=== PATIENT | female | born 1975 | race Caucasian/White ===

== ENCOUNTER → 2018-04-06 17:59 | Outpatient (CLI) | payer OTHER, SELFPAY | PROVIDERS: Family Provider Physician Assistant; PCP Physician Assistant; Visit Provider Podiatrist | DX: S91.209A Unspecified open wound of unspecified toe(s) with damage to nail, initial encounter (principal) | CPT/HCPCS: 87070; 87077; 87186; 87205 ==

== ENCOUNTER 2020-07-09 16:01 | Emergency (ER) | payer OTHER, SELFPAY ==
[2020-07-09 16:02] VITALS: BP 154/111; PULSE 68; RESP 16; TEMP 35.7; O2SAT 100; BMI 29.2
[2020-07-09 16:07] VITALS: BP 154/111; PULSE 68; RESP 16; TEMP 35.7; O2SAT 100
--- NOTE | 2020-07-09 17:33 | ED.RN ---
rt ear irrigated with 30 cc saline. very large and extensive piece of hard cecum moved to from of ear. removed with curette. Dr Rushing aware
--- NOTE | 2020-07-09 17:37 | ED.DCSUM_ITS ---
History of Present Illness Chief Complaint: Sore Throat Informant: Patient Onset: Days Context: Gradual Onset Associated Symptoms: Nasal Congestion, Sinus Pressure, Diarrhea, - - right ear fullness Narrative: Is a 45-year-old female with a history of asthma presenting with concern for Covid as well as right ear congestion and pressure. Patient states on she started to have malaise, sore throat, hoarse voice and diarrhea. She notes her boyfriend as well as her son and his girlfriend have all recently tested positive for coronavirus. Patient states she did have coronavirus back in February but this feels the same. She was tested for Covid 2 days ago but does not know her results. She is not having any significant shortness of breath, wheezing or difficulty breathing. She is more concerned because of the discomfort in her right ear. She did put some Debrox in it today with no improvement. Patient has no other concerns at this time. Past Medical History - Allergies and Home Meds Allergies/Adverse Reactions: Allergies Sulfa (Sulfonamide Antibiotics) Adverse Reaction (Verified 07/09/20 16:07) Chest tightness Primary Care Physician: Fred Joseph PA [Primary Care Provider] - Past Medical History: - - Asthma, Surgical History: noncontributory Lives: Spouse/ Significant Other, With Family Smoking Status: Never smoker Review of Systems General: Reports: Malaise. Denies: Chills, Fever, Sweats Eyes: Denies: Visual changes - bilaterally, Diplopia ENT: Reports: Right ear pain, Rhinorrhea, Sore throat Cardiovascular: Denies: Chest pain, Palpitations Respiratory: Reports: Cough. Denies: Dyspnea, Sputum, Dyspnea on exertion Gastrointestinal: Reports: Diarrhea. Denies: Abdominal pain, Nausea, Vomiting, Melena, Hematochezia Genitourinary: Denies: Dysuria, Hematuria, Frequency Musculoskeletal: Reports: Myalgias. Denies: Back pain, Extremity Pain Skin: Denies: Rash, Wounds Neurological: Denies: Headache, Weakness, Numbness Physical Exam Vital Signs/Narrative: Vital Signs Temp Pulse Resp BP Pulse Ox 07/09/20 16:07 96.3 F L 68 16 154/111 H 100 07/09/20 16:02 96.3 F L 68 16 154/111 H 100 Inital Vital Signs reviewed: Yes General: Well nourished, Well developed Head: Normocephalic, Atraumatic Eyes: Perrl, EOMI Ears: Normal external canal, - - Impaction of the right ear. Normal left TM.. Negative for: Pain with Movement of Right Tragus, Pain with Movement of Left Tragus, Right Mastoid Tenderness, Left Mastoid Tenderness Nose: Normal Inspection, No Rhinorrhea Mouth/Throat: Normal Inspection, No Posterior Erythema, Airway Patent Tonsils: Negative for: Right Tonsilar Erythema, Left Tonsilar Erythema Neck: Supple, Nontender Cardiovascular: Regular rate, Regular rhythm, No murmurs Respiratory: No distress, CTA bilaterally, Chest nontender. Negative for: Whe ezing Abdomen: Soft, Nontender, Nondistended, Normal bowel sounds Back: Nontender, Normal Inspection Extremities: Nontender, No edema Skin: Normal color, No rash Neurological: Alert, Oriented x3, Cranial nerves II-XII grossly intact, Normal Strength, Normal Sensation Psychological: Normal affect Diagnostic/Tx/Re-eval - Medical Decision Making Patient is evaluated for a right ear congestion with decreased hearing as well as viral symptoms consistent with coronavirus. She has multiple sick contacts positive for coronavirus. Clinically patient is well-appearing and is breathing easily. She had a Covid test 2 days ago that is pending. I do not think a repeat swab is indicated at this time. She does appear to have a cerumen impaction on her affected ear. Is irrigated by nursing and patient has a large piece of cerumen that is dislodged. She now has visualization of the panic membrane and resolution of her ear symptoms. She feels much better. Patient is given Covid return precautions. She verbalizes agreement understand this plan. She is counseled on the importance of quarantine to event spread to other people. ED Disposition - Plan for ED Patient: Disposition: Home or Assisted Living Diagnosis: Suspected COVID-19 virus infection, Right ear impacted cerumen Instructions: ED Viral Syndrome Referrals: Fred Joseph PA [Primary Care Provider] - Additional Instructions: Please quarantine and act like you do have coronavirus until your results come back. Given your exposure and your symptoms I have a high suspicion that you do have coronavirus. Please return to the emergency room if you develop difficulty breathing or shortness of breath.
== END 2020-07-09 18:10 | disposition home or self-care (01) ==
PROVIDERS: Emergency Provider Emergency Medicine; PCP Physician Assistant
DX: Z20.828 Contact with and (suspected) exposure to other viral communicable diseases (principal); H61.21 Impacted cerumen, right ear
CPT/HCPCS: 99284

== ENCOUNTER → 2020-11-01 16:11 | Outpatient (CLI) | payer OTHER, SELFPAY ==
[2020-11-01 14:40] VITALS: BMI 32.2
[2020-11-01 17:55] LABS: Anion Gap 5 (5-15); BUN 20 mg/dL (7-18); BUN/Creat Ratio 19.6 RATIO (10-20); CRP, High Sensitivity Cardiac 2.06 mg/L; Calcium,Total 9.1 mg/dL (8.5-10.1); Chloride 106 mmol/L (98-107); Creatinine, Serum 1.02 mg/dL (0.55-1.02); EST Glomerular Filtration Rate 62 mL/min (>60); Est Glom Filt Rate - Afr Amer 74 mL/min (>60); Glucose 100 mg/dL (74-106); Potassium 4.1 mmol/L (3.5-5.1); Sodium Level 141 mmol/L (136-145); Thyroid Stim Hormone (TSH) 1.95 uIU/mL (0.358-3.74)
== END ==
PROVIDERS: PCP Physician Assistant; Referring Provider Internal Medicine Cardiovascular Disease; Visit Provider Internal Medicine Cardiovascular Disease
DX: U07.1 COVID-19 (principal); I10 Essential (primary) hypertension; R07.9 Chest pain, unspecified
CPT/HCPCS: 36415; 80048; 84443; 86141

== ENCOUNTER → 2020-11-23 13:20 | Outpatient (CLI) | payer OTHER, SELFPAY ==
[2020-11-01 14:40] VITALS: BMI 32.2
--- NOTE | 2020-11-23 13:22 | STE_ITS ---
Reason For Study: DYSPNEA/SOB, HTN Stress Results Protocol: Stress Echocardiogram Maximum Predicted HR: 173 bpm Target HR: 147 bpm % Maximum Predicted HR: 88 % DurationHeart Rate Stage (mm:ss) (bpm) BP Comment BASELINE 66 134/84SINUS ARRHYTHMIA OSVALDO PROTOCOL- STAGE 1 3:00 108 134/90NO SX OSVALDO PROTOCOL- STAGE 2 3:00 121 152/86SL SOB OSVALDO PROTOCOL- STAGE 3 2:00 153 170/96SOB, NO CP RECOVERY 75 144/92SX SUBSIDED Stress Duration: 8:00 mm:ss Maximum Stress HR: 153 bpm Baseline Echocardiogram Findings Stress Echo Wall motion Data Resting WM Intermediate WM Stress WM Interpretation Summary Exercise stress echo. 45-year-old with a history of dyspnea and hypertension. Stress protocol: Resting EKG demonstrates normal sinus rhythm with a rate of 78 bpm normal intervals are noted. Resting blood pressure is 134/84 mmHg. Patient exercised according to regular Osvaldo protocol for total duration of 8 minutes. Patient completed 2 minutes into stage III of the Osvaldo protocol. The maximum heart rate attained was 153 bpm which was 88% of max impacted heart rate the maximum workload was 10.1 metabolic equivalents. At rest there were no ST or T wave changes noted suggest ischemia at peak exercise upsloping ST changes were noted with no meet the criteria for ischemia. The test was terminated due to dyspnea. No clinical angina was noted. The resting blood pressure was 134/84 with a peak blood pressure 170/90 mmHg. Blood pressure response to exercise was normal. Stress echocardiogram. Resting and stress echocardiographic images were obtained. The resting ejection fraction was noted to be approximately 55%. The peak ejection fraction was 65% with no wall motion abnormalities noted there was thickening of all carvalho present. Conclusion: Exercise stress echocardiogram with no evidence of ischemia at a high workload. Good blood pressure response to exercise. Normal resting and stress echocardiographic images Ordering Physician: Ham Ordaz MD Referring Physician: Alan Joseph Performed By: Sulma Zavala RDCS
--- NOTE | 2020-11-23 17:02 | STRESSREP ---
Stress Test Report Exercise stress echo. 45-year-old with a history of dyspnea and hypertension. Stress protocol: Resting EKG demonstrates normal sinus rhythm with a rate of 78 bpm normal intervals are noted. Resting blood pressure is 134/84 mmHg. Patient exercised according to regular Osvaldo protocol for total duration of 8 minutes. Patient completed 2 minutes into stage III of the Osvaldo protocol. The maximum heart rate attained was 153 bpm which was 88% of max impacted heart rate the maximum workload was 10.1 metabolic equivalents. At rest there were no ST or T wave changes noted suggest ischemia at peak exercise upsloping ST changes were noted with no meet the criteria for ischemia. The test was terminated due to dyspnea. No clinical angina was noted. The resting blood pressure was 134/84 with a peak blood pressure 170/90 mmHg. Blood pressure response to exercise was normal. Stress echocardiogram. Resting and stress echocardiographic images were obtained. The resting ejection fraction was noted to be approximately 55%. The peak ejection fraction was 65% with no wall motion abnormalities noted there was thickening of all carvalho present. Conclusion: Exercise stress echocardiogram with no evidence of ischemia at a high workload. Good blood pressure response to exercise. Normal resting and stress echocardiographic images
== END ==
LOC: CVS 13:20
PROVIDERS: PCP Physician Assistant; Visit Provider Internal Medicine Cardiovascular Disease
DX: I10 Essential (primary) hypertension (principal); R06.00 Dyspnea, unspecified; R06.02 Shortness of breath
CPT/HCPCS: 93017; 93350

== ENCOUNTER 2021-06-24 18:31 | Observation (INO) | payer OTHER, SELFPAY ==
[2021-06-24 18:31] VITALS: BP 115/112; PULSE 80; RESP 16; TEMP 36; O2SAT 99; BMI 30.2
[2021-06-24 18:40] VITALS: BP 174/86; PULSE 58; RESP 15; O2SAT 99
--- NOTE | 2021-06-24 19:01 | EKG12_ITS ---
Test Reason : NUMBNESS/TINGLING Blood Pressure : / mmHG Vent. Rate : 059 BPM Atrial Rate : 059 BPM P-R Int : 132 ms QRS Dur : 082 ms QT Int : 392 ms P-R-T Axes : 052 011 029 degrees QTc Int : 388 ms Sinus bradycardia Otherwise normal ECG Confirmed by GILLIAN INGRAM, LORI ([id number]), news copy editor DWAIN MCCRACKEN ([id number]) on 06/26/2021 8:06:49 AM Referred By: FIDELIA Confirmed By:LORI FRENCH MD
--- NOTE | 2021-06-24 19:01 | CT_ITS ---
STUDY: CTA HEAD AND NECK WITH CONTRAST REASON FOR EXAM: Female, 46 years old. Headache, right facial droop RADIATION DOSAGE (If Supplied By Facility): CTDIvol = ( 27.85 ) mGy, DLP = ( 1483.94 ) mGycm TECHNIQUE: CT angiography was performed with a multi-detector CT scanner. Data acquisition was obtained from the skull base through the vertex following intravenous administration of IV 100mL Isovue-370. MIP images were reconstructed from the axial data set. Post-processing of the angiographic images was performed, with multiplanar reformation and 3D reconstruction. Individualized dose optimization techniques were used for this CT. COMPARISON: No relevant priors. FINDINGS: Normal bilateral petrous carotid arteries. Normal right cavernous carotid artery with a normal supraclinoid bifurcation. There is a mild focal stenosis at the left cavernous carotid artery with a normal supraclinoid bifurcation. Normal right A1 segments of the anterior cerebral artery. Normal left A1 segments of the anterior cerebral artery. Normal intact anterior communicating artery (ACOM). Normal bilateral A2 segments of the anterior cerebral arteries. Normal right M1 and M2 segments of the middle cerebral arteries, with a normal M1 bifurcation. Normal left M1 and M2 segments of the middle cerebral arteries, with a normal M1 bifurcation. Normal right posterior communicating artery (PCOM). Normal left posterior communicating artery (PCOM). Normal bilateral vertebral arteries. Normal basilar artery with a normal basilar bifurcation. The visualized bilateral superior cerebellar (SCA) arteries are normal. Normal bilateral P1, P2 and visualized P3 segments of the posterior cerebral arteries. There is no demonstrated aneurysm of the pokagon of [place]. There is no demonstrated abnormality of the visualized brain. AORTIC ARCH: Normal visualized aortic arch. Normal origins of the brachiocephalic, left common carotid, and left subclavian arteries. RIGHT CAROTID ARTERIES: Normal right common carotid artery (CCA). Normal right common carotid bulb. Normal origin of the right internal carotid (ICA) artery without a hemodynamically significant stenosis. Normal visualized cervical portion of the right internal carotid artery. Normal origin of the right external carotid artery (ECA). LEFT CAROTID ARTERIES: Normal left common carotid artery (CCA). Normal left common carotid bulb. Normal origin of the left internal carotid (ICA) artery without a hemodynamically significant stenosis. Normal visualized cervical portion of the left internal carotid artery. Normal origin of the left external carotid artery (ECA). VERTEBRAL ARTERIES: Normal bilateral vertebral arteries. CT/CTA Head AND Neck W/ Contrast IMPRESSION: Mild focal stenosis at the cavernous portion of the left internal carotid artery which does not appear to be hemodynamically significant. Electronically Signed: Aleks Monsivais DO at 20:36 EDT Tel [phone], Service support ,
--- NOTE | 2021-06-24 19:02 | EDS_ITS ---
HPI History of Present Illness Chief Complaint: Numb/Ting Informant: patient Onset/Context/Timing Onset: Today Timing: Intermittent Current Severity: Mild Maximum Severity: Moderate Narrative Narrative: Patient presents with recurrent neurologic symptoms. This past , June 21, patient states that she was at work when she developed weakness in her right leg, right facial droop, dizziness. 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 She was sent to [facility] in [place] for evaluation. At that time she continued to have dizziness but her other neuro symptoms resolved. She was diagnosed with a TIA. She chose to go home and follow-up. Shortly before arrival tonight patient states she developed numbness and droop on her right face again it lasted 2 minutes. This was associated with dizziness and a headache. The dizziness and headache persist. [facility] Medical History (Updated 06/24/21 @ 20:[address] Yolanda Rincon MD) Asthma Essential (primary) hypertension GERD (gastroesophageal reflux disease) History of MRSA infection Mononucleosis Seborrheic keratoses Syncope (2006) Home Medications albuterol sulfate 90 mcg/actuation aerosol inhaler 2 inh INHALATION Q6H PRN g 11/01/20 [History Last Taken Unknown] amlodipine 5 mg tablet 5 mg PO DAILY 11/01/20 [History Last Taken Unknown] lisinopril 40 mg tablet 40 mg PO DAILY #90 tab 11/01/20 [Rx Last Taken Unknown] metoprolol succinate 50 mg tablet,extended release 24 hr 50 mg PO DAILY #90 tab 11/01/20 [Rx Last Taken Unknown] Allergy/AdvReac Type Severity Reaction Status Date / Time Sulfa (Sulfonamide AdvReac Chest Verified 06/24/21 18:42 Antibiotics) tightness Family History Mother Hypertension Grandmother Myocardial infarction maternal Grandfather Myocardial infarction maternal Surgical History History of History of lumbar spinal fusion Social History Smoking Status: Never smoker alcohol intake: current alcohol intake frequency: a few times a month ROS ROS ED Constitutional Constitutional ED: Denies chills or fever(s) Eyes Eyes: Denies change in vision ENT ENT ED: Denies sore throat Cardiovascular Cardiovascular: Denies chest pain Respiratory/Chest Respiratory/Chest: Denies cough or dyspnea Gastrointestinal Gastrointestinal: Denies abdominal pain, diarrhea, nausea or vomiting Genitourinary Genitourinary ED: Denies dysuria Musculoskeletal Musculoskeletal: Denies back pain Integumentary Denies rash Neurologic Neurologic: Reports headache(s), paresthesias and weakness Psychiatric Psychiatric: Denies anxiety or depression Allergic/Immunologic Allergic/Immunologic ED: Denies urticaria EXAM Physical Exam Const Vital Signs: 06/24/21 18:31 06/24/21 18:40 Temperature 96.8 F L Temperature Source Temporal Pulse Rate 80 58 L Respiratory Rate 16 15 Blood Pressure 115/112 H 174/86 H Blood Pressure Mean 113 115 Pulse Ox 99 99 Oxygen Delivery Method Room Air Room Air Positive well nourished and well developed General Appearance ED: well developed HEENT Reports normocephalic and head/scalp atraumatic Eyes PERRL and EOMs intact bilaterally Neck supple Chest Wall inspection of chest normal and palpation of chest normal Resp normal respiratory effort and clear to auscultation bilaterally Cardio regular rate and regular rhythm GI normal to inspection, nondistended, normoactive bowel sounds Palpation: soft Back/Spine no CVA tenderness Extremity normal to inspection Neuro oriented x3 and no sensory deficits noted Neuro Narrative: NIH equals 0 at the time of my exam. Sensorium / Orientation: alert Motor Exam: strength 5/5 throughout Psych mental status grossly normal Skin no rashes or lesions noted MDM MDM MDM Narrative Medical decision making narrative: Lab work, EKG, CTA head and neck obtained. Lab Data Attestation: I reviewed the patient's lab results. Labs: Laboratory Results - last 24 hr 06/24/21 06/24/21 19:25 19:25 WBC 12.8 H RBC 4.60 Hgb 13.1 Hct 39.6 MCV 86.1 MCH 28.5 MCHC 33.1 RDW Std Deviation 44.3 H RDW Coeff of Patrice 14.2 Plt Count 278 MPV 8.5 Immature Gran % (Auto) 1.000 H Neut % (Auto) 63.5 Lymph % (Auto) 25.2 Adair % (Auto) 9.2 Eos % (Auto) 0.6 Baso % (Auto) 0.5 Absolute Neuts (auto) 8.1 H Absolute Lymphs (auto) 3.22 Nucleated RBC % 0 Sodium 140 Potassium 4.2 Chloride 107 Carbon Dioxide 28.0 Anion Gap 5 BUN 23 H Creatinine 0.97 Estim Creat Clear Calc 56.10 Est GFR (MDRD) Af Amer 79 Est GFR (MDRD) Non-Af 65 BUN/Creatinine Ratio 23.7 H Glucose 103 Calcium 9.0 Radiography Diagnostic Testing: Radiology Impression Head/Neck CTA 06/24/21 19:01 IMPRESSION: Mild focal stenosis at the cavernous portion of the left internal carotid artery which does not appear to be hemodynamically significant. Electronically Signed: Aleks Monsivais DO at 20:36 EDT Tel [phone], Service support , Treatment and Re-Evaluation Comments:: Repeat evaluation patient is resting comfortably. No worsening of symptoms while in the emergency room. No recurrence of facial droop. Blood work is unremarkable other than mild elevation of white count at 12.8. CTA reveals mild focal stenosis in the left internal carotid but does not appear to be hemodynamically significant. With patient having 2 separate episodes of symptoms now in the last 4 days I do recommend observation overnight and MRI in the morning. This will be discussed with hospitalist. Discharge Plan Triage Chief Complaint: Numb/Ting ED Provider: Yolanda Rincon Dx/Rx/DC Orders Clinical Impression: Brain TIA Prescriptions: No Action amlodipine 5 mg tablet 5 mg PO DAILY RF: 0 metoprolol succinate [Toprol XL] 50 mg tablet extended release 24 hr 50 mg PO DAILY Qty: 90 RF: 3 lisinopril 40 mg tablet 40 mg PO DAILY Qty: 90 RF: 3 albuterol sulfate 90 mcg/actuation HFA aerosol inhaler 2 inh INHALATION Q6H PRN (Reason: Wheezing) RF: 0 Primary Care Provider: Fred Joseph Referrals: Fred Joseph PA [Primary Care Provider] - Disposition Disposition: Acute Care Hospital [facility]
[2021-06-24 19:46] LABS: Absolute Lymphocyte Count 3.22 X10^3/uL (0.83-4.51); Absolute Neutrophil Count 8.1 X10^3/uL (2.0-7.7); Basophil# 0.06 X10^3/uL; Basophil% 0.5 % (0-1); Eosinophil# 0.08 X10^3/uL; Eosinophils% 0.6 % (0-5); Hematocrit 39.6 % (37-47); Hemoglobin 13.1 g/dL (12.0-15.0); Lymphocyte # 3.22 X10^3/ul (0.83-4.51); Lymphocyte % 25.2 % (19-41); Mean Corp Hgb Conc 33.1 g/dL (32-36); Mean Corpuscular Hgb 28.5 pg (27.0-32.0); Mean Corpuscular Volume 86.1 fL (81-99); Mean Platelet Vol. 8.5 fl (6.2-12.0); Monocyte# 1.17 X10^3/uL; Monocyte% 9.2 % (0-10); NRBC Flagged by Analyzer 0 % (0-5); Neutrophil % 63.5 % (47-70); Platelet Count 278 K/mm3 (150-450); RBC Distribution Width CV 14.2 % (11.6-14.6); RBC Distribution Width SD 44.3 fl (35.1-43.9); White Blood Count 12.8 K/mm3 (4.4-11.0)
[2021-06-24 19:55] LABS: Anion Gap 5 (5-15); BUN 23 mg/dL (7-18); BUN/Creat Ratio 23.7 RATIO (10-20); Chloride 107 mmol/L (98-107); Creatinine, Serum 0.97 mg/dL (0.55-1.02); EST Glomerular Filtration Rate 65 mL/min (>60); Est Glom Filt Rate - Afr Amer 79 mL/min (>60); Glucose 103 mg/dL (74-106); Potassium 4.2 mmol/L (3.5-5.1); Sodium Level 140 mmol/L (136-145)
--- NOTE | 2021-06-24 20:58 | HP.PCM.HOS_ITS ---
HPI - General General Date of Admission: 06/24/21 HPI Narrative YOBANY ANGELO, is a 46 F with a significant history of hypertension who presents to emergency department with numbness of her right face. Associated with her symptoms is weakness of her right face; and lightheadedness. Also she had blurry vision of her right eye. Her symptoms occurred on the day of presentation and resolved except that she continued to have lightheadedness at the emergency department. Her symptoms also occurred 3 days prior to presentation and resolved. 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 She went to the emergency department at [facility] and had head CT and blood work. She thought she may be having a TIA and was discharge home because of high Covid census at [facility] [place] at that time. At that time (3 days ago) she also had right leg weakness. On the day of this presentation she had same symptoms that occurred 3 days ago except that she did not have right leg weakness. [facility] Medical History Asthma Essential (primary) hypertension GERD (gastroesophageal reflux disease) History of MRSA infection Migraines Mononucleosis Seborrheic keratoses Syncope (2006) Home Medications albuterol sulfate 90 mcg/actuation aerosol inhaler 2 inh INHALATION Q6H PRN g 11/01/20 [History Last Taken Unknown] amlodipine 5 mg tablet 5 mg PO DAILY 11/01/20 [History Last Taken Unknown] lisinopril 40 mg tablet 40 mg PO DAILY #90 tab 11/01/20 [Rx Last Taken Unknown] metoprolol succinate 50 mg tablet,extended release 24 hr 50 mg PO DAILY #90 tab 11/01/20 [Rx Last Taken Unknown] Allergy/AdvReac Type Severity Reaction Status Date / Time apple Allergy Swelling Verified 06/24/21 22:54 shellfish derived AdvReac Swelling Verified 06/24/21 22:56 Sulfa (Sulfonamide AdvReac Chest Verified 06/24/21 18:42 Antibiotics) tightness Family History Mother Hypertension Grandmother Myocardial infarction maternal Grandfather Myocardial infarction maternal Surgical History History of History of lumbar spinal fusion Social History Smoking Status: Never smoker alcohol intake: current alcohol intake frequency: a few times a month ROS ROS Narrative Constitutional: Denies fever, chills, fatigue, anorexia and change in weight Eyes: Reports blurry vision of the right eye. Denies change in vision, discharge from eye(s), erythema, eye pain, or other HEENT: Denies abnormal hearing, dysphagia, ear pain, epistaxis, headache(s), hearing loss, nasal congestion, nasal discharge, post nasal drip, sinus pressure, sore throat or other Cardiovascular: Denies chest pain or palpitations. Denies dyspnea on exertion, orthopnea and paroxysmal nocturnal dyspnea Respiratory/Chest: Denies cough, excessive phlegm production, shortness of breath with exertion and wheezing Gastrointestinal: Denies abdominal pain, coffee ground emesis, constipation, diarrhea, dyspepsia, hematemesis, hematochezia, loose stools, melena, nausea, vomiting or other Genitourinary: Denies burning urination, difficulty urinating, dysuria, hematuria, nocturia, urinary frequency, urinary hesitancy, urinary incontinence, urinary urgency or other Musculoskeletal: Denies arthralgias, back pain, joint pain, joint stiffness, joint swelling, myalgias, neck pain or other Neurologic: Reports focal weakness; headaches; numbness. Denies seizure-like activity, seizures, syncope, tremor(s) or other Psychiatric: Denies anxiety, depression, homicidal ideation, suicidal ideation or other Endocrinology: Denies change in body appearance, cold intolerance, excessive sweating, heat intolerance, polydipsia, polyuria or other Hematologic/Lymphatic: Denies anemia, easy bleeding, easy bruising, lymphadenopathy or other Integumentary: Denies rashes Allergic/Immunologic: Denies rhinitis, hives, eczema, asthma or other Vital Signs Vital Signs Vital Signs: 06/24/21 18:31 06/24/21 18:40 Temperature 96.8 F L Temperature Source Temporal Pulse Rate 80 58 L Respiratory Rate 16 15 Blood Pressure 115/112 H 174/86 H Blood Pressure Mean 113 115 Pulse Ox 99 99 Oxygen Delivery Method Room Air Room Air Weight Weight: 74.843 kg Body Mass Index (BMI) 30.2 Physical Exam Narrative Physical exam: General: Well-nourished, well-developed. Head: Normocephalic, atraumatic, no tenderness Eyes: PERRLA, EOMI ENT, no trauma, moist mucous membranes, no rhinorrhea Neck: Nontender, full range of motion, no spinal tenderness, deformities, step- off CVS: Regular rate and rhythm. S1-S2 present. No murmur, gallop or rub. Respiratory : clear to auscultation bilaterally, chest wall nontender, no wheezing Abdomen: Soft, nontender, nondistended, normal bowel sounds, no masses : Deferred Back: Nontender, no CVA tenderness, no midline spinal tenderness, deformities, step-offs Extremities: Nontender full range of motion, no trauma Skin: Normal color, no trauma, abrasions Neuro: Alert, oriented, cranial nerves II through XII grossly intact. Sensation changes on the right side of the face; and right lower extremity. No dysmetria. Strength in right lower extremity 4 out of 5. Strength in all other extremities 5 out of 5. Psychiatry: Normal mood. Normal affect. Not depressed. Not anxious. Results Lab / Micro Data Result Diagrams: 06/24/21 19:25 06/24/21 19:25 Labs: Laboratory Results - last 24 hr 06/24/21 19:25: WBC 12.8 H, RBC 4.60, Hgb 13.1, Hct 39.6, MCV 86.1, MCH 28.5, MCHC 33.1, RDW Std Deviation 44.3 H, RDW Coeff of Patrice 14.2, Plt Count 278, MPV 8.5, Immature Gran % (Auto) 1.000 H, Neut % (Auto) 63.5, Lymph % (Auto) 25.2, [place] % (Auto) 9.2, Eos % (Auto) 0.6, Baso % (Auto) 0.5, Absolute Neuts (auto) 8.1 H, Absolute Lymphs (auto) 3.22, Nucleated RBC % 0 06/24/21 19:25: Sodium 140, Potassium 4.2, Chloride 107, Carbon Dioxide 28.0, Anion Gap 5, BUN 23 H, Creatinine 0.97, Estim Creat Clear Calc 56.10, Est GFR (MDRD) Af Amer 79, Est GFR (MDRD) Non-Af 65, BUN/Creatinine Ratio 23.7 H, Glucose 103, Calcium 9.0 Radiology Impression Head/Neck CTA 06/24/21 19:01 IMPRESSION: Mild focal stenosis at the cavernous portion of the left internal carotid artery which does not appear to be hemodynamically significant. Electronically Signed: Aleks Monsivais DO at 20:36 EDT Tel [phone], Service support , Assessment & Plan Assessment/Plan (1) Stroke-like symptoms: PLAN: Strokelike symptoms Defer diagnosis include TIA; evolving stroke all multiple sclerosis. Serial NINDS NIH Scale ordered Impression of head/neck CTA by radiology is as above. Upon my personal head CT image review: I agree with radiologist interpretation Lipid profile and A1c ordered. Physical therapy, and occupational therapy to work with patient. N.p.o. until bedside swallow eval. Daily aspirin. LFT other within normal. High intensity statin Permissive hypertension. Control blood pressure with labetalol for systolic blood pressure of more than 220 or diastolic blood pressure of more than 120. MRI/MRAM of head; brain; and neck. Echocardiogram ordered. Patient with stress echo on 11/23/2020 showed normal ejection fraction. Hypertension Blood pressure is not within goal Home blood pressure meds held secondary to permissive hypertension. Hydralazine prn and labetalol as needed for permissive hypertension as above. Trend blood pressure and adjust blood pressure medications. DVT Prophylaxis SCD ordered. Charges/Coding Visit Charges OBSV E&M: 80126 Initial observation care L2
[2021-06-24 21:08] VITALS: BP 156/98; PULSE 58; RESP 15; TEMP 36.8; O2SAT 99
--- NOTE | 2021-06-24 22:02 | ECHOD_ITS ---
Reason For Study: TIA/CVA Procedure This was a 2D Doppler, Color Flow transthoracic echocardiogram. Exam performed portable in patient room. Left Ventricle Normal LV size. Left ventricular systolic function is normal. The estimated ejection fraction is 60 %. Stage 1 diastolic dysfunction. No regional wall motion abnormalities noted. Right Ventricle Normal RV size. Normal systolic function. Atria The left atrium is mildly enlarged. Normal right atrium. Bubble contrast study negative for right to left interatrial shunt. Mitral Valve Normal mitral valve. Tricuspid Valve Normal tricuspid valve. Mild (1+) tricuspid valve insufficiency. Pulmonary artery systolic pressure is 26 mmHg. Aortic Valve Normal aortic valve. Trisinus/trileaflet aortic valve. Pulmonic Valve Normal pulmonic valve. Great Vessels Normal aortic root. The pulmonary artery is normal size. Normal inferior vena cava. Pericardium/Pleural No pericardial effusion. Medication Performed a rapid injection of agitated mix of 9 cc saline and 1cc air to assess for atrial septal defect. MMode/2D Measurements & Calculations LVIDd: 4.7 cm IVSd: 1.1 cm Ao root diam: 3.3 cm LVIDs: 2.4 cm LVPWd: 1.1 cm RVDd: 3.0 cm FS: 49.2 % LAV(MOD-bp): 60.6 ml LVAd ap4: 29.7 cm2 SV(MOD-sp4): 70.0 ml LAV(MOD-bp) Indexed: 32.8 ml/m2 LVLd ap4: 7.8 cm LAV(MOD-sp2): 46.5 ml EDV(MOD-sp4): 91.0 ml LAV(MOD-sp4): 70.9 ml EDV(sp4-el): 95.9 ml LVAs ap4: 12.5 cm2 LVLs ap4: 6.2 cm ESV(MOD-sp4): 21.0 ml ESV(sp4-el): 21.4 ml EF(MOD-sp4): 76.9 % EF(sp4-el): 77.7 % SV(sp4-el): 74.6 ml LA A4 area: 22.0 cm2 LA dimension(2D): 3.4 cm RA A4 area: 13.8 cm2 Doppler Measurements & Calculations MV E max angelo: 80.7 cm/sec Lat Peak E' Angelo: 8.1 cm/sec Med Peak E' Angelo: 8.6 cm/sec MV A max angelo: 85.4 cm/sec E/E' lat: 9.9 E/E' med: 9.4 MV E/A: 0.95 Ao V2 max: 163.9 cm/sec LV V1 max: 136.4 cm/sec PA V2 max: 87.4 cm/sec Ao max P.7 mmHg LV V1 max P.4 mmHg TR max angelo: 236.3 cm/sec TR max P.5 mmHg ECHO/Echo Complete Interpretation Summary Normal LV size. Left ventricular systolic function is normal. The estimated ejection fraction is 60 %. The left atrium is mildly enlarged. Stage 1 diastolic dysfunction. Pulmonary artery systolic pressure is 26 mmHg. Bubble contrast study negative for right to left interatrial shunt. Ordering Physician: Lefty Avila Referring Physician: Alan Joseph Performed By: Sulma Zavala RDCS
[2021-06-24 22:03] VITALS: BMI 33.7
--- NOTE | 2021-06-24 22:03 | PCS.PANDOC ---
PANDEMIC DOCUMENTATION INITIATED: Date: 05/07/2021 Time: 190
[2021-06-24 22:07] VITALS: BP 151/87; PULSE 59; RESP 18; TEMP 36.7; O2SAT 100
[2021-06-24] MEDS: Atorvastatin Calcium 80 MG Tablet PO (22:29)
[2021-06-24] MEDS: Acetaminophen 325 MG Tablet 650 MG PO (22:29)
[2021-06-24 22:49] VITALS: PULSE 63
[2021-06-24 22:50] LABS: AST(SGOT) 11 U/L (15-37); Alanine Aminotransfer ALT/SGPT 20 U/L (13-56); Albumin, Serum 3.5 g/dL (3.2-5.0); Alkaline Phosphatase 61 U/L (45-117); Bilirubin, Direct 0.07 mg/dL (0.00-0.30); Protein, Total 7.5 g/dL (6.4-8.2)
[2021-06-24 22:57] VITALS: BMI 33.7
[2021-06-24 22:58] VITALS: BMI 33.7
[2021-06-25] VITALS (8 sets, daily range): BP systolic 122–157; BP diastolic 79–95; PULSE 51–76; RESP 16–18; TEMP 36.6–36.9; O2SAT 98–100; BMI 33.7
[2021-06-25 02:45] LABS: Hemoglobin A1c 5.3 % (3.8-5.6)
[2021-06-25 06:53] LABS: Absolute Lymphocyte Count 2.78 X10^3/uL (0.83-4.51); Absolute Neutrophil Count 6.4 X10^3/uL (2.0-7.7); Basophil# 0.05 X10^3/uL; Basophil% 0.5 % (0-1); Eosinophil# 0.12 X10^3/uL; Eosinophils% 1.2 % (0-5); Hematocrit 39.2 % (37-47); Hemoglobin 12.3 g/dL (12.0-15.0); Lymphocyte # 2.78 X10^3/ul (0.83-4.51); Lymphocyte % 27.1 % (19-41); Mean Corp Hgb Conc 31.4 g/dL (32-36); Mean Corpuscular Hgb 27.5 pg (27.0-32.0); Mean Corpuscular Volume 87.5 fL (81-99); Mean Platelet Vol. 8.7 fl (6.2-12.0); Monocyte# 0.86 X10^3/uL; Monocyte% 8.4 % (0-10); NRBC Flagged by Analyzer 0 % (0-5); Neutrophil # 6.35 X10^3/uL (2.7-7.7); Neutrophil % 61.9 % (47-70); Platelet Count 253 K/mm3 (150-450); RBC Distribution Width CV 14.2 % (11.6-14.6); RBC Distribution Width SD 45.1 fl (35.1-43.9); Red Blood Count 4.48 M/mm3 (4.2-5.4); White Blood Count 10.3 K/mm3 (4.4-11.0)
[2021-06-25 07:28] LABS: Anion Gap 6 (5-15); BUN 19 mg/dL (7-18); Calcium,Total 8.6 mg/dL (8.5-10.1); Chloride 107 mmol/L (98-107); Cholesterol 183 mg/dL (200); Creatinine, Serum 0.83 mg/dL (0.55-1.02); EST Glomerular Filtration Rate 78 mL/min (>60); Est Glom Filt Rate - Afr Amer 95 mL/min (>60); Estimated Creatinine Clearance 65.56 ml/min; Glucose 101 mg/dL (74-106); High Density Lipoprotein 36 mg/dL; Potassium 3.9 mmol/L (3.5-5.1); Sodium Level 138 mmol/L (136-145); Triglycerides 213 mg/dL; Very Low Density Lipoprotein 43 mg/dL (5-40)
[2021-06-25] MEDS: Acetaminophen 325 MG Tablet 650 MG PO ×2 (07:43→16:05)
[2021-06-25] MEDS: Aspirin 81 MG TAB.CHEW PO (07:43)
--- NOTE | 2021-06-25 08:56 | MRI_ITS ---
STUDY: MRI BRAIN WITHOUT CONTRAST REASON FOR EXAM: Female, 46 years old. CVA TECHNIQUE: Standardized multiplanar fat and water weighted pulse sequences were obtained. COMPARISON: None. FINDINGS: Normal size of the ventricles and extra-axial spaces for the patient''s age. Normal white matter tracts of the supratentorial brain. There is no evidence for recent intracranial ischemia or other cause of cytotoxic edema on diffusion weighted imaging (DWI). Normal T2* images of the brain without demonstrated susceptibility artifact. There is no demonstrated hemosiderin stain. Normal bilateral basal ganglia. Normal thalami. There is no extra-axial fluid accumulation. Normal flow voids within the major intracranial circulation suggesting patency by spin echo criteria. There is enlargement of the sella turcica with increased CSF within the sella and flattening of the pituitary gland consistent with an empty sellar syndrome. Normal infundibular stalk, hypothalamus, and optic chiasm. Normal tectal plate and pineal gland. Normal midbrain, cisco and medulla. Normal cerebellum. Normal basal cisterns. Normal bilateral temporal bones. Normal bilateral internal auditory canals. Flattening of the posterior sclera bilaterally with dilatation of the optic nerve sheath bilaterally worrisome for idiopathic intracranial hypertension (pseudotumor cerebri). Correlation with funduscopic exam is recommended. Normal visualized paranasal sinuses. Normal calvarium and skull base. Normal visualized soft tissue structures. Normal visualized upper cervical spine. MRI/Brain without Contrast IMPRESSION: 1. Suspected idiopathic intracranial hypertension (pseudotumor cerebri). Correlation with funduscopic exam is recommended. 2. No acute infarct. Electronically Signed: Toni Rothman MD at 9:55 EDT Tel , Service support ,
--- NOTE | 2021-06-25 10:12 | CASEMGMT ---
SW completed a PHQ 9 with patient as she may have had a TIA. She scored a 1 which indicates minimal depression. Patient denied need for counseling resources. Leanna LUCIA
--- NOTE | 2021-06-25 10:35 | TELEMED_ITS ---
[facility] Tele[facility] has confirmed receipt of a request for visit. This document confirms receipt of the order initiating the consult. To find the results of the consultation, please view the patient's reports for the scanned Telemed Consult.
--- NOTE | 2021-06-25 11:51 | MRI_ITS ---
STUDY: EXAMINATION - MRV BRAIN WITHOUT CONTRAST REASON FOR EXAM: Female, 46 years old. Rt sided weakness/numbness -- Head/Neck TECHNIQUE: 3D [id number] (TOF) imaging was performed in a 1.5 cookie MRI scanner. COMPARISON: MRI earlier today FINDINGS: Normal flow within the superior sagittal sinus. Normal flow within the superficial cortical veins. Normal flow within the paired internal cerebral veins, vein of Gerardo and straight sinus. There is preferential flow within the right transverse and sigmoid sinuses, however there is demonstrated flow within the left transverse and sigmoid sinus. There is signal loss within the distal aspect of the right transverse sinus/proximal sigmoid sinus and within the proximal left sigmoid sinus. Transverse sinus stenosis is associated with idiopathic intracranial hypertension. Normal flow within the bilateral jugular bulbs. MRI/MRV Head Without Contrast IMPRESSION: 1. No venous sinus thrombosis. 2. Possible stenoses of the distal right transverse sinus/proximal sigmoid sinus and the left sigmoid sinus. Transverse sinus stenosis is associated with idiopathic intracranial hypertension (pseudotumor cerebri). Electronically Signed: Toni Rothman MD at 15:53 EDT Tel , Service support ,
--- NOTE | 2021-06-25 15:59 | PCM.DC ---
Discharge Instructions Diet Discharge Diet: No restrictions Activity Discharge Activity: Return to Normal Activity Weight Bearing Status: Weight bearing as tolerated Dressing / Incision Call your doctor if you observe: Fever of 101 or Higher, Numbness or Tingling, Shortness of breath, Dizziness, Chest pain, Increased palpitations (irregular heartbeat) and Calf discomfort Follow Up Care Please Follow Up With: Primary care provider When: Within the next two weeks. Test Results: Test results from this visit will be discussed in further detail at your follow-up appointment, if applicable. Discharge Plan Admission Admit Date/Time: 06/24/21 20:48 Primary Reason for Your Visit: Stroke like symptoms Attending Provider: Kofi Mcqueen Primary Care Provider: Fred Joseph Discharge Orders/Prescriptions Prescriptions: Continued amlodipine 5 mg tablet 5 mg PO DAILY RF: 0 metoprolol succinate [Toprol XL] 50 mg tablet extended release 24 hr 50 mg PO DAILY Qty: 90 RF: 3 lisinopril 40 mg tablet 40 mg PO DAILY Qty: 90 RF: 3 albuterol sulfate 90 mcg/actuation HFA aerosol inhaler 2 inh INHALATION Q6H PRN (Reason: Wheezing) RF: 0 Referrals / Follow Up: Denton Quinones MD [NON-STAFF] - Within 2 Weeks Fred Joseph PA [Primary Care Provider] - Within 2 Weeks Disposition Disposition (needs filled in before D/C Order can be placed): Home, Self Care
--- NOTE | 2021-06-25 16:14 | DS.PCM_ITS ---
Documented by User: Drake AMBRIZ 06/25/21 16:18 Providers Date of Admission: 06/24/21 Primary Care Physician: PB Yun Reason For Visit: STROKE LIKE SYMPTOMS Diagnosis Discharge Diagnosis (1) Stroke-like symptoms: Status: Acute Code(s): R29.90 - Unspecified symptoms and signs involving the nervous system Medications at Discharge Home Medications albuterol sulfate 90 mcg/actuation aerosol inhaler 2 inh INHALATION Q6H PRN g 11/01/20 amlodipine 5 mg tablet 5 mg PO DAILY 11/01/20 lisinopril 40 mg tablet 40 mg PO DAILY #90 tab 11/01/20 metoprolol succinate 50 mg tablet,extended release 24 hr 50 mg PO DAILY #90 tab 11/01/20 Hospital Course Procedures 2-D Echocardiogram and Transthoracic echo Summary of Care Provided Minutes Spent on Discharge: 35 Hospital Course: Disposition: Patient to be discharged home. 1) strokelike symptoms Brain MRI obtained, did not demonstrate any evidence of acute ischemia or infarct. Head MRV obtained and did not demonstrate any venous sinus thrombosis. There is possible stenosis of the distal right transverse sinus and the left sigmoid sinus, which could possibly be associated with idiopathic intracranial hypertension. SOC consult obtained and recommended the above were negative to proceed with discharge and outpatient neurology follow-up. Echocardiogram obtained and demonstrated normal LV size and systolic function with an estimated EF of 60%. Patient will be discharged and is to follow-up with Dr. Quinones and her primary care provider within the next 2 weeks. Patient seen by Drake Gutierrez PA-C, under the supervision of Dr. Mcqueen. Physical Exam Narrative Patient is a 46-year-old female comfortably resting in bed, alert and oriented x3. Patient reports some right-sided weakness and numbness, but denies any other focal neurological deficits. Does not appear to be in acute distress, denies development of any new symptoms overnight. Const alert, oriented x3 and no apparent distress HEENT normocephalic, head/scalp atraumatic and hearing grossly normal bilaterally Eyes PERRL, EOMs intact bilaterally and conjunctivae normal Neck no lymphadenopathy, supple and no JVD Resp normal respiratory effort, no retractions, no use of accessory muscles and clear to auscultation bilaterally Cardio regular rate, regular rhythm, no murmurs and no JVD GI normal to inspection, nondistended, normoactive bowel sounds, soft to palpation and non-tender Extremity normal to inspection, full ROM and no clubbing, cyanosis or edema Skin no rashes or lesions noted, no wounds and skin turgor normal Neuro CN's II-XII intact bilaterally Psych affect normal Weight / BMI Weight Weight: 184 lb 8.43 oz Body Mass Index (BMI) 33.7 ABG / Lab / Microbiology Data Result Diagrams: 06/25/21 06:05 06/25/21 06:05 Laboratory: Laboratory Results - last 24 hr 06/24/21 19:25: WBC 12.8 H, RBC 4.60, Hgb 13.1, Hct 39.6, MCV 86.1, MCH 28.5, MCHC 33.1, RDW Std Deviation 44.3 H, RDW Coeff of Patrice 14.2, Plt Count 278, MPV 8.5, Immature Gran % (Auto) 1.000 H, Neut % (Auto) 63.5, Lymph % (Auto) 25.2, [place] % (Auto) 9.2, Eos % (Auto) 0.6, Baso % (Auto) 0.5, Absolute Neuts (auto) 8.1 H, Absolute Lymphs (auto) 3.22, Nucleated RBC % 0 06/24/21 19:25: Sodium 140, Potassium 4.2, Chloride 107, Carbon Dioxide 28.0, Anion Gap 5, BUN 23 H, Creatinine 0.97, Estim Creat Clear Calc 56.10, Est GFR (MDRD) Af Amer 79, Est GFR (MDRD) Non-Af 65, BUN/Creatinine Ratio 23.7 H, Glucose 103, Calcium 9.0 06/24/21 19:25: Total Bilirubin 0.30, Direct Bilirubin 0.07, AST 11 L, ALT 20, Alkaline Phosphatase 61, Total Protein 7.5, Albumin 3.5, Globulin 4.0 06/24/21 19:25: Hemoglobin A1c 5.3 06/25/21 06:05: WBC 10.3, RBC 4.48, Hgb 12.3, Hct 39.2, MCV 87.5, MCH 27.5, MCHC 31.4 L D, RDW Std Deviation 45.1 H, RDW Coeff of Patrice 14.2, Plt Count 253, MPV 8.7, Immature Gran % (Auto) 0.900, Neut % (Auto) 61.9, Lymph % (Auto) 27.1, [place] % (Auto) 8.4, Eos % (Auto) 1.2, Baso % (Auto) 0.5, Absolute Neuts (auto) 6.4, Absolute Lymphs (auto) 2.78, Nucleated RBC % 0 06/25/21 06:05: Sodium 138, Potassium 3.9, Chloride 107, Carbon Dioxide 25.0, Anion Gap 6, BUN 19 H, Creatinine 0.83, Estim Creat Clear Calc 65.56, Est GFR (MDRD) Af Amer 95, Est GFR (MDRD) Non-Af 78, BUN/Creatinine Ratio 23.0 H, Glucose 101, Calcium 8.6, Triglycerides 213 H, Cholesterol 183, LDL Cholesterol 104, VLDL Cholesterol 43 H, HDL Cholesterol 36 L Radiography Diagnostic Testing: Radiology Impression Head/Neck CTA 06/24/21 19:01 IMPRESSION: Mild focal stenosis at the cavernous portion of the left internal carotid artery which does not appear to be hemodynamically significant. Electronically Signed: Aleks Monsivais DO at 20:36 EDT Tel [phone], Service support , Echocardiogram 06/24/21 22:02 Interpretation Summary Normal LV size. Left ventricular systolic function is normal. The estimated ejection fraction is 60 %. The left atrium is mildly enlarged. Stage 1 diastolic dysfunction. Pulmonary artery systolic pressure is 26 mmHg. Bubble contrast study negative for right to left interatrial shunt. Ordering Physician: Lefty Avila Referring Physician: Alan Joseph Performed By: Sulma Zavala RDCS Brain MRI 06/25/21 08:56 IMPRESSION: 1. Suspected idiopathic intracranial hypertension (pseudotumor cerebri). Correlation with funduscopic exam is recommended. 2. No acute infarct. Electronically Signed: Toni Rothman MD at 9:55 EDT Tel , Service support , Brain MRI 06/25/21 11:51 IMPRESSION: 1. No venous sinus thrombosis. 2. Possible stenoses of the distal right transverse sinus/proximal sigmoid sinus and the left sigmoid sinus. Transverse sinus stenosis is associated with idiopathic intracranial hypertension (pseudotumor cerebri). Electronically Signed: Toni Rothman MD at 15:53 EDT Tel , Service support , D/C Instructions Discharge Diet: No restrictions Weight Bearing Status: Weight bearing as tolerated Call your doctor if you observe: Fever of 101 or Higher, Numbness or Tingling, Shortness of breath, Dizziness, Chest pain, Increased palpitations (irregular heartbeat) and Calf discomfort Please Follow Up With: Primary care provider When: Within the next two weeks. Meaningful Use Info Meaningful Use Diagnoses (Choose all that apply): None applicable Discharge Plan Admission Admit Date/Time: 06/24/21 20:48 Primary Reason for Your Visit: Stroke like symptoms Attending Provider: Kofi Mcqueen Primary Care Provider: Fred Joseph Discharge Orders/Prescriptions Prescriptions: Continued amlodipine 5 mg tablet 5 mg PO DAILY RF: 0 metoprolol succinate [Toprol XL] 50 mg tablet extended release 24 hr 50 mg PO DAILY Qty: 90 RF: 3 lisinopril 40 mg tablet 40 mg PO DAILY Qty: 90 RF: 3 albuterol sulfate 90 mcg/actuation HFA aerosol inhaler 2 inh INHALATION Q6H PRN (Reason: Wheezing) RF: 0 Referrals / Follow Up: Denton Quinones MD [NON-STAFF] - Within 2 Weeks Fred Joseph PA [Primary Care Provider] - Within 2 Weeks Disposition Disposition (needs filled in before D/C Order can be placed): Home, Self Care Documented by User: Dr. Kofi Mcqueen MD 06/25/21 16:38 Providers Date of Admission: 06/24/21 Reason For Visit: STROKE LIKE SYMPTOMS Medications at Discharge Home Medications albuterol sulfate 90 mcg/actuation aerosol inhaler 2 inh INHALATION Q6H PRN g 11/01/20 amlodipine 5 mg tablet 5 mg PO DAILY 11/01/20 lisinopril 40 mg tablet 40 mg PO DAILY #90 tab 11/01/20 metoprolol succinate 50 mg tablet,extended release 24 hr 50 mg PO DAILY #90 tab 11/01/20 Hospital Course Summary of Care Provided Hospital Course: This patient was seen in conjunction with Drake Gutierrez PA-C. I have independently interviewed and examined the patient and reviewed pertinent historical, laboratory, and other data. Please refer to Drake Gutierrez PA-C's note for details of this patient's presentation, findings, and recommendations. I have reviewed Drake Gutirerez PA-C's note and concur with documented findings. In brief, patient is a 46-year-old female who presented with right facial numbness with associated headache and dizziness. Presented diagnosis of TIA made admitted to monitored bed for further management Hospital course: As documented ABG / Lab / Microbiology Data Result Diagrams: 06/25/21 06:05 06/25/21 06:05 Discharge Plan Admission Admit Date/Time: 06/24/21 20:48 Primary Reason for Your Visit: Stroke like symptoms Attending Provider: Kofi Mcqueen Primary Care Provider: Fred Joseph Discharge Orders/Prescriptions Prescriptions: Continued amlodipine 5 mg tablet 5 mg PO DAILY RF: 0 metoprolol succinate [Toprol XL] 50 mg tablet extended release 24 hr 50 mg PO DAILY Qty: 90 RF: 3 lisinopril 40 mg tablet 40 mg PO DAILY Qty: 90 RF: 3 albuterol sulfate 90 mcg/actuation HFA aerosol inhaler 2 inh INHALATION Q6H PRN (Reason: Wheezing) RF: 0 Referrals / Follow Up: Denton Quinones MD [NON-STAFF] - Within 2 Weeks Fred Joseph, PA [Primary Care Provider] - Within 2 Weeks Disposition Disposition (needs filled in before D/C Order can be placed): Home, Self Care Charges/Coding Visit Charges OBSV E&M: 34184 Observation care discharge Hospital Course Imaging Results Imaging Results: 06/25/21 08:56 Brain without Contrast [MRI] Routine 06/25/21 11:51 MRV Head Without Contrast [MRI] Stat
[2021-06-25] MEDS: Pantoprazole Sodium 40 MG Tablet PO (16:19)
[2021-06-25] MEDS: amLODIPine 5 MG Tablet PO (16:19)
[2021-06-25] MEDS: Metoprolol(XL)Succ 50 MG Tablet PO (16:20)
[2021-06-25] MEDS: Lisinopril 40 MG Tablet PO (16:20)
== END 2021-06-25 16:04 | disposition home or self-care (01) ==
LOC: ED 20:46 → PCU 21:01
PROVIDERS: Admitting Provider Hospitalist; Emergency Provider Emergency Medicine; PCP Physician Assistant; Visit Provider Internal Medicine
DX: R29.818 Other symptoms and signs involving the nervous system (principal); G93.2 Benign intracranial hypertension; R29.810 Facial weakness; R53.1 Weakness; J45.909 Unspecified asthma, uncomplicated; K21.9 Gastro-esophageal reflux disease without esophagitis; H53.8 Other visual disturbances; R51.9 Headache, unspecified; I10 Essential (primary) hypertension; Z79.899 Other long term (current) drug therapy; Z86.14 Personal history of Methicillin resistant Staphylococcus aureus infection
CPT/HCPCS: 36415; 70496; 70498; 70544; 70551; 80048; 80061; 80076; 83036; 85025; 92610; 93005; 93306; 99218; 99285; Q9967; A4216; G0378

== ENCOUNTER 2021-07-05 12:17 | Day surgery (SDC) | payer OTHER, SELFPAY ==
[2021-07-05 12:18] VITALS: BP 99/68; PULSE 63; RESP 16; TEMP 36.9; O2SAT 98; BMI 32.0
--- NOTE | 2021-07-05 12:38 | EX.ED.DYSGE1 ---
HPI History of Present Illness Chief Complaint: Headache Narrative Narrative: Patient presents with post lumbar puncture headache. Indicates basically she has been having headache she has had MRIs work-up as an outpatient with multiple physicians neurologist etc. she was found to have pseudotumor cerebri recently, she was seen by a neurovascular specialist at [facility] 2 days ago related to the above she has known history of papilledema that physician felt she required emergent lumbar puncture to relieve the pressure, she had a lumbar puncture [facility] ED without difficulty, for the last 2 days she has had worst headache exacerbated by being upright practically resolved by being supine she spoke to [facility] staff who are caring for her describe the above to them and she was instructed to come to this facility for a blood patch, the headache is related to position it is different from her chronic headache, she is otherwise been doing well with no coronavirus exposures no fever no cough she is laying flat in the bed and she states she feels better, she is under consideration for [employer] shunt she is currently on acetazolamide other meds for the pseudotumor [facility] Medical History Asthma Essential (primary) hypertension GERD (gastroesophageal reflux disease) History of MRSA infection Migraines Mononucleosis Seborrheic keratoses Syncope (2006) Home Medications albuterol sulfate 90 mcg/actuation aerosol inhaler 2 inh INHALATION Q6H PRN g 11/01/20 [History Last Taken Unknown] amlodipine 5 mg tablet 5 mg PO DAILY 11/01/20 [History Last Taken Unknown] lisinopril 40 mg tablet 40 mg PO DAILY #90 tab 11/01/20 [Rx Last Taken Unknown] metoprolol succinate 50 mg tablet,extended release 24 hr 50 mg PO DAILY #90 tab 11/01/20 [Rx Last Taken Unknown] Allergy/AdvReac Type Severity Reaction Status Date / Time apple Allergy Swelling Verified 07/05/21 12:27 shellfish derived AdvReac Swelling Verified 07/05/21 12:27 Sulfa (Sulfonamide AdvReac Chest Verified 07/05/21 12:27 Antibiotics) tightness Family History Mother Hypertension Grandmother Myocardial infarction maternal Grandfather Myocardial infarction maternal Surgical History History of History of lumbar spinal fusion Social History Smoking Status: Never smoker alcohol intake: current alcohol intake frequency: a few times a month ROS ROS ED ROS Narrative The patient's only specific complaint is headache that is resolved practically when she is supine Constitutional Constitutional ED: Reports subjective, sweats and other; Denies chills, fever(s) or weight loss Eyes Eyes: Denies blurry vision or change in vision ENT ENT ED: Denies ear pain Cardiovascular Cardiovascular: Denies chest pain or palpitations Respiratory/Chest Respiratory/Chest: Denies dyspnea Gastrointestinal Gastrointestinal: Denies abdominal pain, nausea or vomiting Genitourinary Genitourinary ED: Denies dysuria or hematuria Musculoskeletal Musculoskeletal: Denies arthralgias or myalgias Integumentary Reports rash; Denies abscess Neurologic Neurologic: Denies weakness Psychiatric Psychiatric: Denies anxiety or depression Endocrine Endocrinology: Denies polydipsia or polyuria Allergic/Immunologic Allergic/Immunologic ED: Denies urticaria EXAM Physical Exam Const Vital Signs: 07/05/21 12:18 07/05/21 14:37 07/05/21 14:43 Temperature 98.5 F 98.5 F Temperature Source Temporal Temporal Pulse Rate 63 63 Respiratory Rate 16 18 16 Blood Pressure 99/68 99/68 Blood Pressure Mean 78 78 Pulse Ox 98 98 Oxygen Delivery Method Room Air Room Air Positive well developed General Appearance ED: well developed HEENT Reports normocephalic Negative for trauma Eyes EOMs intact bilaterally Neck supple Chest Wall inspection of chest normal Resp normal respiratory effort Cardio regular rate GI non-tender and non-distended Back/Spine Back/Spine Narrative: unremarkable Extremity normal to inspection Neuro oriented x3 and CN's II-XII intact bilaterally Sensorium / Orientation: alert Psych mental status grossly normal Skin no rashes or lesions noted MDM MDM MDM Narrative Medical decision making narrative: The patient's neurologic exam is unremarkable general medical exam unremarkable her NIH is 0 she has had a recent extensive work-up for all the above including imaging studies MRIs evaluations by multiple specialist at [facility] she assures me this headache is directly related to the lumbar puncture she had a few days ago and given the nature of the headache that would be consistent, at this time we have contacted anesthesia to consult him about the possibility of a blood patch Did speak with anesthesia they are taking her to the OR for blood patch when she returns as long as she is feeling well she will follow blood patch instructions [facility] the pseudotumor cerebri and return for change in symptoms She was taken to the OR for the procedure and apparently per protocol she will be given final discharge instructions by the OR staff when the blood patch is completed Home stable Final impression post lumbar puncture headache history of pseudotumor cerebri status post blood patch Discharge Plan Dx/Rx/DC Orders Clinical Impression: Headache, post-lumbar puncture Disposition Disposition: Acute Care Hospital [facility] Discharge Date/Time: 07/05/21 14:48
[2021-07-05 14:37] VITALS: RESP 18
--- NOTE | 2021-07-05 14:38 | ED.RN ---
iv started in right ac, 20 ga. good blood return. pt taken to [facility] for blood patch.
[2021-07-05 14:43] VITALS: BP 99/68; PULSE 63; RESP 16; TEMP 36.9; O2SAT 98
== END 2021-07-05 17:17 | disposition home or self-care (01) ==
LOC: ED 12:59 → SDC 14:21 → AC 14:22
PROVIDERS: Emergency Provider Emergency Medicine; PCP Physician Assistant; Visit Provider Anesthesiology
PROC: 3E0R3GC Introduction of Other Therapeutic Substance into Spinal Canal, Percutaneous Approach (ICD-10-PCS; CPT 62273; principal; 2021-07-05 14:55)
DX: G97.1 Other reaction to spinal and lumbar puncture (principal); Y84.4 Aspiration of fluid as the cause of abnormal reaction of the patient, or of later complication, without mention of misadventure at the time of the procedure; G93.2 Benign intracranial hypertension; I10 Essential (primary) hypertension; K21.9 Gastro-esophageal reflux disease without esophagitis; Z86.14 Personal history of Methicillin resistant Staphylococcus aureus infection; Z98.1 Arthrodesis status
CPT/HCPCS: 62273; 99283; J7120; A4216

== ENCOUNTER 2023-07-05 01:29 | Inpatient (IN) | payer BC, SELFPAY ==
[2023-07-05] VITALS (31 sets, daily range): BP systolic 77–135; BP diastolic 38–88; PULSE 80–124; RESP 12–19; TEMP 35.6–37.3; O2SAT 92–100; BMI 35.0
--- NOTE | 2023-07-05 01:40 | EKG12_ITS ---
Test Reason : DYSRHYTHMIA Blood Pressure : / mmHG Vent. Rate : 114 BPM Atrial Rate : 114 BPM P-R Int : 136 ms QRS Dur : 068 ms QT Int : 330 ms P-R-T Axes : 058 021 024 degrees QTc Int : 454 ms Sinus tachycardia Possible Left atrial enlargement Minimal voltage criteria for LVH, may be normal variant ( R in aVL ) Borderline ECG Confirmed by LORI FRENCH MD ([id number]), telegraph editor CONRADO SIMS ([id number]) on 07/07/2023 2:24:25 PM Referred By: DANTE Confirmed By:LORI FRENCH MD
[2023-07-05] MEDS: 0.9% Normal Saline (1000mL) 1,000 ML 999 ML IV ×2 (02:41→04:13)
[2023-07-05 02:55] LABS: Anion Gap 8 (5-15); BUN 59 mg/dL (7-18); BUN/Creat Ratio 59.6 RATIO (10-20); Calcium,Total 8.3 mg/dL (8.5-10.1); Chloride 111 mmol/L (98-107); Creatinine, Serum 0.99 mg/dL (0.55-1.02); EST Glomerular Filtration Rate 63 mL/min (>60); Est Glom Filt Rate - Afr Amer 76 mL/min (>60); Estimated Creatinine Clearance 56.24 ml/min; Glucose 123 mg/dL (74-106); Magnesium 2.7 mg/dL (1.6-2.6); Potassium 3.5 mmol/L (3.5-5.1); Sodium Level 137 mmol/L (136-145)
[2023-07-05] MEDS: Pantoprazole Sodium 80 MG in 0.9% Normal Saline (50mL Bag) 15 ML 420 MG IV BOLUS (03:23)
[2023-07-05] MEDS: Ondansetron 4 MG/2 ML Vial IV ×2 (03:23→07:41)
[2023-07-05 03:45] LABS: Absolute Neutrophil Count 8.4 X10^3/uL (2.0-7.7); Basophil# 0.06 X10^3/uL; Basophil% 0.5 % (0-1); Eosinophil# 0.14 X10^3/uL; Eosinophils% 1.1 % (0-5); Hematocrit 26.6 % (37-47); Hemoglobin 8.6 g/dL (12.0-15.0); Lymphocyte % 22.4 % (19-41); Mean Corp Hgb Conc 32.3 g/dL (32-36); Mean Corpuscular Hgb 28.6 pg (27.0-32.0); Mean Corpuscular Volume 88.4 fL (81-99); Mean Platelet Vol. 8.6 fl (6.2-12.0); Monocyte# 0.92 X10^3/uL; Monocyte% 7.4 % (0-10); NRBC Flagged by Analyzer 0 % (0-5); Neutrophil # 8.44 X10^3/uL (2.7-7.7); Neutrophil % 67.5 % (47-70); Platelet Count 189 K/mm3 (150-450); Red Blood Count 3.01 M/mm3 (4.2-5.4); White Blood Count 12.5 K/mm3 (4.4-11.0)
[2023-07-05 03:55] LABS: International Normalized Ratio 1.1; Prothrombin Time (Protime)PT. 14.4 SECONDS (11.7-14.9)
--- NOTE | 2023-07-05 04:08 | CT_ITS ---
EXAM: CT ANGIOGRAPHY ABDOMEN AND PELVIS WITHOUT AND WITH INTRAVENOUS CONTRAST CLINICAL INDICATION: gi bleed TECHNIQUE: Helically acquired angiography images were obtained of the abdomen and pelvis without and with intravenous contrast. This CT exam was performed using one or more of the following dose reduction techniques: automated exposure control, adjustment of the mA and/or kV according to patient size, and/or use of iterative reconstruction technique. MIP reconstructed images were created and reviewed. CONTRAST: IV 100mL [id number] RADIATION DOSE: CTDIvol = 23.97 mGy, DLP = 1127.18 mGy-cm COMPARISON: February 02, 2014 unenhanced exam. FINDINGS: VASCULATURE: AORTA: No acute findings. Normal caliber abdominal aorta. No dissection. CELIAC TRUNK AND MESENTERIC ARTERIES: No acute findings. No occlusion or significant stenosis. No dissection. RENAL ARTERIES: No acute findings. No occlusion or significant stenosis. No dissection. ILIAC ARTERIES: No acute findings. No occlusion or significant stenosis. No dissection. OTHER VEINS: Mesenteric veins are not fully opacified. LOWER THORAX: See above. ABDOMEN: LIVER: The right lobe of the liver is 19 cm craniocaudal, similar to prior exam. GALLBLADDER AND BILE DUCTS: Unremarkable. No calcified gallstones. No gallbladder distention or wall edema. No intra- or extrahepatic biliary ductal dilation. PANCREAS: Unremarkable. No focal cystic or solid mass. SPLEEN: Unremarkable. Normal size without focal cystic or solid mass. ADRENALS: Unremarkable. No nodules. 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 Normal renal size and position. No hydronephrosis. STOMACH AND BOWEL: Mildly thick-walled appearance of gastric antrum and pylorus, mild fluid and gas small bowel. Moderate stool in the proximal right colon. Mildly thick-walled collapsed appearance of most of the transverse colon consistent with colitis. Minimal gas and stool in the distal colon. There is slight hyperdensity along the greater curvature of the distal stomach at the gastric antrum on coronal images. No stomach or bowel distention. PELVIS: APPENDIX: See below. BLADDER: Unremarkable. REPRODUCTIVE: Unremarkable as visualized. No mass. ABDOMEN and PELVIS: INTRAPERITONEAL SPACE: Unremarkable. No ascites or other fluid collection. No free air. BONES/JOINTS: Change in appearance of hardware at the lumbosacral spine, new small posterior bilateral stabilization rods with vertebral body screws at L3-L5 and residual sections of previously seen stabilization screws in S1, the previously seen rods and screws at L5-S1 have otherwise been removed. Mild increased anterolisthesis of L3 with respect to L4 and new defects in the pedicles at L3, roughly 7 mm anterolisthesis of L3 with respect to L4. There was widening of the facet joints and a lytic lesion in the right L3 lamina on prior exam. Small appendix is seen on coronal images near the right iliac vessels. SOFT TISSUES: Slight fat-containing umbilical hernia. LYMPH NODES: Unremarkable. No enlarged lymph nodes. CT/CTA Abd/Pelvis W/WO Contrast IMPRESSION: 1. Mildly thick-walled collapsed appearance of the gastric antrum and slight enhancement at the inferior margin of the stomach at the anterior. There are some adjacent enlarged mesenteric lymph nodes in the root of the mesentery, measuring roughly 1.1 and 1.2 cm just inferior to the stomach and anterior to the pancreas, nonspecific. Best seen on coronal images. Correlate with endoscopy if it is thought to be indicated for upper GI bleeding. 2. Almost collapsed and mildly thick-walled appearance of much of the transverse colon, this could be due to nondistention or early or mild colitis. 3. Change in hardware at the lumbosacral spine new surgical changes and mild anterolisthesis at L3. Electronically Signed: Roseanna Freeman MD at 5:43 EDT ,
--- NOTE | 2023-07-05 04:12 | EDS_ITS ---
HPI History of Present Illness Chief Complaint: GI Bleed Informant: patient and family Narrative Narrative: Patient is a 48-year-old female with past medical history of hypertension and previous TIA. She states that all week she has not felt well. She states t hat she cannot pinpoint any one symptom but today had multiple bouts of diarrhea. She states that in she did have generalized muscle aches and pain and at one point felt very lightheaded and dizzy and even passed out. She also had 1-2 episodes of vomiting that was dark brown in color. Secondary to her progressively worsening symptoms she was brought in for evaluation. The patient states she does not have a history of bleeding disorder nor does she take blood thinners. She states she has been no recent antibiotics travel or exposure to livestock with the diarrhea. She denies any previous EGD or colonoscopy or history of intestinal disorders such as ulcer colitis or Crohn's disease. She also denies any history of recurrent alcohol or NSAID use but does state that she takes acetaminophen multiple times per day and drinks a large amount of caffeine/soda [facility] Medical History Asthma Essential (primary) hypertension GERD (gastroesophageal reflux disease) History of MRSA infection Idiopathic intracranial hypertension Migraines Mononucleosis Seborrheic keratoses Syncope (2006) Home Medications albuterol sulfate 90 mcg/actuation aerosol inhaler 2 inh inhalation Q6H PRN Wheezing 11/01/20 [History Last Taken Unknown] amlodipine 5 mg tablet 5 mg PO DAILY blood pressure 11/01/20 [History Last Taken Unknown] lisinopril 40 mg tablet 40 mg PO DAILY #90 tabs 12/03/22 [Rx Last Taken Unknown] metoprolol succinate 50 mg tablet,extended release 24 hr (Toprol XL) 50 mg PO DAILY #90 tabs 12/03/22 [Rx Last Taken Unknown] Allergy/AdvReac Type Severity Reaction Status Date / Time apple Allergy Swelling Verified 07/05/23 01:31 shellfish derived AdvReac Swelling Verified 07/05/23 01:31 Sulfa (Sulfonamide AdvReac Chest Verified 07/05/23 01:31 Antibiotics) tightness Family History Mother Hypertension Grandmother Myocardial infarction maternal Grandfather Myocardial infarction maternal Surgical History History of History of lumbar spinal fusion Social History Smoking Status: Never smoker alcohol intake: current alcohol intake frequency: a few times a month ROS ROS ED Constitutional Constitutional ED: Denies chills or fever(s) ENT ENT ED: Denies sore throat Cardiovascular Cardiovascular: Reports other Details: Positive syncope ; Denies chest pain Respiratory/Chest Respiratory/Chest: Denies cough or dyspnea Gastrointestinal Gastrointestinal: Reports diarrhea, melena, nausea and vomiting; Denies abdom inal pain Genitourinary Genitourinary ED: Denies dysuria Musculoskeletal Musculoskeletal: Reports myalgias Integumentary Denies rash Neurologic Neurologic: Reports weakness; Denies headache(s) Hematologic/Lymphatic Hematologic/Lymphatic: Denies easy bleeding or easy bruising EXAM Physical Exam Const Vital Signs: 07/05/23 01:35 07/05/23 01:38 07/05/23 02:05 Temperature 96.0 F L 96.0 F L Temperature Source Temporal Temporal Pulse Rate 124 H 124 H Pulse Rate [Lying] 100 Pulse Rate [Sitting (for 1 minute prior to obtaining)] 102 H Respiratory Rate 16 18 Blood Pressure 110/59 L 110/59 L Blood Pressure [Lying] 79/38 L Blood Pressure [Sitting (for 1 minute prior to obtaining)] 77/41 L Blood Pressure Mean 76 76 Blood Pressure Mean [Lying] 51 Blood Pressure Mean [Sitting (for 1 minute prior to obtaining)] 53 Pulse Ox 99 99 Oxygen Delivery Method Room Air Room Air 07/05/23 03:30 07/05/23 05:30 Temperature Temperature Source Pulse Rate Pulse Rate [Lying] Pulse Rate [Sitting (for 1 minute prior to obtaining)] Respiratory Rate 16 Blood Pressure 101/70 Blood Pressure [Lying] Blood Pressure [Sitting (for 1 minute prior to obtaining)] Blood Pressure Mean 80 Blood Pressure Mean [Lying] Blood Pressure Mean [Sitting (for 1 minute prior to obtaining)] Pulse Ox Oxygen Delivery Method Positive well nourished and well developed General Appearance ED: well developed and pallor HEENT Reports dry mucous membranes HEENT Narrative: No dried blood or active bleeding noted in the posterior pharynx No secondary changes to suggest infection Mouth ED: Yes dry mucous membranes Mouth: dry mucous membranes Eyes PERRL and EOMs intact bilaterally General Eye ED: Yes pale conjunctiva; Negative for scleral icterus Neck supple Neck Narrative: No nuchal rigidity or meningeal signs noted Resp normal respiratory effort and clear to auscultation bilaterally Cardio regular rhythm Rate: tachycardic and other Other Details: Tachycardic rate with regular rhythm Radial and carotid pulses are equal and symmetric GI non-distended GI Narrative: Abdomen is soft and nondistended with normal active bowel sounds. There is mild diffuse pain on palpation without voluntary guarding or rigidity. No pulsatile mass or fluid wave Auscultation: normoactive bowel sounds Palpation: soft Narrative: Rectal tone is normal but stool is melanotic in color and Hemoccult positive Extremity normal to inspection Neuro oriented x3 and CN's II-XII intact bilaterally Sensorium / Orientation: alert Motor Exam: strength 5/5 throughout Psych mental status grossly normal Skin no rashes or lesions noted Skin Narrative: Skin turgor is increased General Skin Exam: pallor; Negative for jaundice MDM MDM MDM Narrative Medical decision making narrative: Patient presented to the ER awake and alert but was tachycardic and hypotensive. She reported loose stool/diarrhea and a few bouts of vomiting that were dark in color. There is concern for acute blood loss anemia/GI bleed along with dehydration versus acute kidney injury or electrolyte derangement as a cause of her symptoms. Orthostatic vital signs were ordered but with just sitting patient's blood pressure did not change drastically but she had severe dizziness correlating with her hypotension. Patient was given 2 L of IV fluid and her blood pressure improved. Rectal exam showed melanotic stool and therefore patient was started on a Protonix bolus and drip. Her labs showed elevation to her BUN at approximately 61 baseline is 20 also correlating with GI bleed. Patient's hemoglobin is down to 8.6 but the most recent value is from 2020 and it was 12.3. Patient denies history of alcohol abuse and my concern for esophageal varices is low but as she reports taking acetaminophen multiple times per day as well as drinking a large amount of soda and caffeine I do have concern for upper GI bleed. The patient CTA showed thickening of the gastric antrum and inferior portion of the stomach which would correlate with potential area of upper GI bleeding. There was also question of early colitis and patient does not have a fever but white count is slightly elevated. Therefore at this time the case was discussed with GI on-call who recommends patient be admitted to the hospital for potential EGD and colonoscopy as well as continued IV hydration and monitoring. They feel that the potential colitis is most likely ischemic in nature and therefore do not recommend IV antibiotics. Plan of care was discussed with the patient and family and both are agreeable to it. Therefore medicine was contacted and they do agree to accept the patient at this time for continued care History & Record Review Discussion w/independent historian: Patient Lab Data Attestation: I reviewed the patient's lab results. Labs: Laboratory Results - last 24 hr 07/05/23 07/05/23 07/05/23 02:36 02:36 02:41 WBC Cancelled Corrected WBC Cancelled RBC Cancelled Hgb Cancelled Hct Cancelled MCV Cancelled MCH Cancelled MCHC Cancelled RDW Std Deviation Cancelled RDW Coeff of Patrice Cancelled Plt Count Cancelled MPV Cancelled Immature Gran % (Auto) Cancelled Neut % (Auto) Cancelled Lymph % (Auto) Cancelled Long % (Auto) Cancelled Eos % (Auto) Cancelled Baso % (Auto) Cancelled Absolute Neuts (auto) Cancelled Absolute Lymphs (auto) Cancelled Total Counted Cancelled Neutrophils % (Manual) Cancelled Band Neutrophils % Cancelled Lymphocytes % (Manual) Cancelled Monocytes % (Manual) Cancelled Eosinophils % (Manual) Cancelled Basophils % (Manual) Cancelled Metamyelocytes % Cancelled Myelocytes % Cancelled Promyelocytes % Cancelled Blast Cells % Cancelled Plasma Cell % (Manual) Cancelled Other Cells % Cancelled Nucleated RBC % Cancelled Nucleated RBCs/100 WBC Cancelled Differential Comment Cancelled Diff Path Review Cancelled Hypersegmented Neuts Cancelled Atypical Lymphocytes Cancelled Reactive Lymphocytes Cancelled Smudge Cells Cancelled Toxic Granulation Cancelled Toxic Vacuolation Cancelled Dohle Bodies Cancelled Kristi Rods Cancelled Platelet Estimate Cancelled Plt Morphology Comment Cancelled RBC Morphology Cancelled Cancelled Polychromasia Cancelled Hypochromasia Cancelled Poikilocytosis Cancelled Basophilic Stippling Cancelled Anisocytosis Cancelled Microcytosis Cancelled Macrocytosis Cancelled Spherocytes Cancelled Sickle Cells Cancelled Target Cells Cancelled Tear Drop Cells Cancelled Ovalocytes Cancelled Stomatocytes Cancelled [place] Bodies Cancelled [place] Cells Cancelled Bite Cells Cancelled Crenated Cell Cancelled Acanthocytes (Spur) Cancelled Rouleaux Cancelled Schistocytes Cancelled PT INR APTT Sodium 137 Potassium 3.5 Chloride 111 H Carbon Dioxide 18.0 L Anion Gap 8 BUN 59 H Creatinine 0.99 Estim Creat Clear Calc 56.24 Est GFR (MDRD) Af Amer 76 Est GFR (MDRD) Non-Af 63 BUN/Creatinine Ratio 59.6 H Glucose 123 H Lactic Acid Calcium 8.3 L Magnesium 2.7 H Total Bilirubin 0.20 Direct Bilirubin 0.05 AST 9 L ALT 16 Alkaline Phosphatase 61 Total Protein 7.0 Albumin 2.9 L Globulin 4.1 07/05/23 03:40 WBC 12.5 H Corrected WBC RBC 3.01 L Hgb 8.6 L Hct 26.6 L MCV 88.4 MCH 28.6 MCHC 32.3 RDW Std Deviation 45.0 H RDW Coeff of Patrice 14.0 Plt Count 189 MPV 8.6 Immature Gran % (Auto) 1.100 H Neut % (Auto) 67.5 Lymph % (Auto) 22.4 Long % (Auto) 7.4 Eos % (Auto) 1.1 Baso % (Auto) 0.5 Absolute Neuts (auto) 8.4 H Absolute Lymphs (auto) 2.80 Total Counted Neutrophils % (Manual) Band Neutrophils % Lymphocytes % (Manual) Monocytes % (Manual) Eosinophils % (Manual) Basophils % (Manual) Metamyelocytes % Myelocytes % Promyelocytes % Blast Cells % Plasma Cell % (Manual) Other Cells % Nucleated RBC % 0 Nucleated RBCs/100 WBC Differential Comment Diff Path Review Hypersegmented Neuts Atypical Lymphocytes Reactive Lymphocytes Smudge Cells Toxic Granulation Toxic Vacuolation Dohle Bodies Kristi Rods Platelet Estimate Plt Morphology Comment RBC Morphology Polychromasia Hypochromasia Poikilocytosis Basophilic Stippling Anisocytosis Microcytosis Macrocytosis Spherocytes Sickle Cells Target Cells Tear Drop Cells Ovalocytes Stomatocytes [place] Bodies [place] Cells Bite Cells Crenated Cell Acanthocytes (Spur) Rouleaux Schistocytes PT 14.4 INR 1.1 APTT 28.0 Sodium Potassium Chloride Carbon Dioxide Anion Gap BUN Creatinine Estim Creat Clear Calc Est GFR (MDRD) Af Amer Est GFR (MDRD) Non-Af BUN/Creatinine Ratio Glucose Lactic Acid 1.3 Calcium Magnesium Total Bilirubin Direct Bilirubin AST ALT Alkaline Phosphatase Total Protein Albumin Globulin Radiography Diagnostic Testing: Clinical Impression(s) from Imaging Studies Abdomen/Pelvis CTA 07/05/23 04:08 IMPRESSION: 1. Mildly thick-walled collapsed appearance of the gastric antrum and slight enhancement at the inferior margin of the stomach at the anterior. There are some adjacent enlarged mesenteric lymph nodes in the root of the mesentery, measuring roughly 1.1 and 1.2 cm just inferior to the stomach and anterior to the pancreas, nonspecific. Best seen on coronal images. Correlate with endoscopy if it is thought to be indicated for upper GI bleeding. 2. Almost collapsed and mildly thick-walled appearance of much of the transverse colon, this could be due to nondistention or early or mild colitis. 3. Change in hardware at the lumbosacral spine new surgical changes and mild anterolisthesis at L3. Electronically Signed: Roseanna Freeman MD at 5:43 EDT Reading Location ID and State: [facility] / [place] Tel , Service support , Management Discussion w/another healthcare provider: Hospitalist and Supervisory Forester Critical Care Time Critical Care Time: Yes Critical care time (excluding procedures): Discussing w/Patient &/or Family/Hide Or Skin Buffer, Discussing w/Consultants and - (Critical care time of 33 minutes) Discharge Plan Dx/Rx/DC Orders Clinical Impression: Anemia, Syncope, Upper GI bleeding Disposition Disposition: Acute Care [facility]
[2023-07-05 04:14] LABS: Lactic Acid 1.3 mmol/L (0.4-1.9)
[2023-07-05 04:19] LABS: AST(SGOT) 9 U/L (15-37); Alanine Aminotransfer ALT/SGPT 16 U/L (13-56); Albumin, Serum 2.9 g/dL (3.2-5.0); Alkaline Phosphatase 61 U/L (45-117); Bilirubin, Direct 0.05 mg/dL (0.00-0.30); Globulin 4.1 g/dL (2.2-4.2)
[2023-07-05] MEDS: Pantoprazole Sodium 80 MG in 0.9% Normal Saline (100mL Bag) 80 ML 10 MG CONT INF ×2 (05:15→15:03)
--- NOTE | 2023-07-05 06:54 | NURSING ---
ICU 4 [facility] GI BLEED
--- NOTE | 2023-07-05 07:01 | PCM.HP.STD ---
HPI - General General Date of Admission: 07/05/23 Date of Service: 07/05/23 Chief Complaint: Syncope/hematemesis HPI Narrative YOBANY ANGELO, is a 48 F who presented to the emergency department at [facility] on 07/05/2023 with generalized malaise, bilateral upper chest and neck pain, and hematemesis that started today. Patient indicates she had not really felt well for about a week. syncopal episode and hematemesis for several bouts. She had some associated upper neck and chest pain, shortness of breath, nausea, mid abdominal pain, and bilateral hand tingling. She is not on any blood 9. She does not take NSAIDs frequently. She does not drink alcohol regularly. She does not smoke. She is on antihypertensives and has been taking those. She is never had anything like this previously and she is never had an EGD or colonoscopy. Vital signs on presentation showed a temperature of 96.0, heart rate 124 with repeat heart rate of 100, blood pressure 110/59, respiratory rate 16 and oxygen saturations were 96% on room air. Blood pressure did drop to a jerri of 79/39 but did respond to some gentle hydration and was 101/70 at the time of my evaluation. CBC shows mild leukocytosis with a white count of 12.5 but no left shift. Hemoglobin is 8.6 (previous hemoglobin from 2020 was greater than 12). Platelet count was normal. Coags are normal. Chemistry panel showed a mild acidosis with a bicarb of 18 however her chloride was elevated at 111 and she has a BUN of 59 with a creatinine of 0.99 which gives her an abnormal serum BUN to creatinine ratio indicative of upper GI bleeding in this case. Liver enzymes were normal bilirubin was normal. EKG showed normal sinus rhythm with no ST-T wave changes and normal intervals. CTA was performed there was a mildly thick-walled collapsed gastric antrum with slightly enhancement of the inferior margin of the stomach at the anterior as well as some nonspecific mesenteric lymphadenopathy, and almost collapsed and mildly thickened appearance of the transverse colon which was thought to be due to early or mild colitis. She was given antiemetics and medication for pain as well as IV fluids and started on a Protonix drip in the emergency department. The case was discussed with Dr. Eason and he will evaluate her for day for probable EGD later. [facility] Medical History Asthma Essential (primary) hypertension GERD (gastroesophageal reflux disease) History of MRSA infection Idiopathic intracranial hypertension Migraines Mononucleosis Obesity (BMI 30-39.9) Seborrheic keratoses Syncope (2006) Home Medications albuterol sulfate 90 mcg/actuation aerosol inhaler 2 inh inhalation Q6H PRN Wheezing 11/01/20 [History Last Taken Unknown] amlodipine 5 mg tablet 5 mg PO DAILY blood pressure 11/01/20 [History Last Taken Unknown] lisinopril 40 mg tablet 40 mg PO DAILY #90 tabs 12/03/22 [Rx Last Taken Unknown] metoprolol succinate 50 mg tablet,extended release 24 hr (Toprol XL) 50 mg PO DAILY #90 tabs 12/03/22 [Rx Last Taken Unknown] Allergy/AdvReac Type Severity Reaction Status Date / Time apple Allergy Swelling Verified 07/05/23 01:31 shellfish derived AdvReac Swelling Verified 07/05/23 01:31 Sulfa (Sulfonamide AdvReac Chest Verified 07/05/23 01:31 Antibiotics) tightness Family History Mother Hypertension Grandmother Myocardial infarction maternal Grandfather Myocardial infarction maternal Surgical History History of History of lumbar spinal fusion Social History (Updated 07/05/23 @ 07:[address] Pratima Cano DO) household members: family housing: house Smoking Status: Never smoker alcohol intake: current alcohol intake frequency: a few times a month substance use type: does not use ROS Constitutional Constitutional: Reports fatigue and weakness; Denies anorexia, change in weight, chills, fever(s), malaise, night sweats or other Eyes Eyes: Denies blurry vision, change in eye color, change in vision, discharge from eye(s), double vision, erythema, eye pain, loss of vision or other ENT HEENT: Denies abnormal hearing, dysphagia, ear pain, epistaxis, headache(s), hearing loss, nasal congestion, nasal discharge, post nasal drip, sinus pressure, sore throat or other Cardiovascular Cardiovascular: Reports chest pain and syncope; Denies claudication, dyspnea on exertion, edema, lightheadedness, orthopnea, palpitations, paroxysmal nocturnal dyspnea, rapid heart rate or other Respiratory/Chest Respiratory/Chest: Reports shortness of breath at rest; Denies cough, dyspnea, excessive phlegm production, hemoptysis, productive cough, shortness of breath with exertion, wheezing or other Gastrointestinal Gastrointestinal: Reports abdominal pain, coffee ground emesis, diarrhea, hematemesis, nausea and vomiting; Denies constipation, dyspepsia, hematochezia, loose stools, melena or other Genitourinary Genitourinary: Denies burning urination, difficulty urinating, dysuria, hematuria, nocturia, urinary frequency, urinary hesitancy, urinary incontinence, urinary urgency or other Musculoskeletal Musculoskeletal: Reports back pain; Denies arthralgias, joint pain, joint stiffness, joint swelling, myalgias, neck pain or other Neurologic Neurologic: Reports tingling; Denies abnormal gait, abnormal speech, confusion, disequilibrium, dizziness, focal weakness, headache(s), numbness, paresthesias, seizure-like activity, seizures, syncope, tremor(s) or other Psychiatric Psychiatric: Denies anxiety, depression, homicidal ideation, suicidal ideation or other Endocrine Endocrinology: Denies change in body appearance, cold intolerance, excessive sweating, heat intolerance, polydipsia, polyuria or other Hematologic/Lymphatic Hematologic/Lymphatic: Denies anemia, easy bleeding, easy bruising, lymphadenopathy or other Allergic/Immunologic Allergic/Immunologic: Denies rhinitis, hives, eczemia, asthma or other Vital Signs Vital Signs Vital Signs: 07/05/23 01:35 07/05/23 01:38 07/05/23 02:05 Temperature 96.0 F L 96.0 F L Temperature Source Temporal Temporal Pulse Rate 124 H 124 H Pulse Rate [Lying] 100 Pulse Rate [Sitting (for 1 minute prior to obtaining)] 102 H Respiratory Rate 16 18 Blood Pressure 110/59 L 110/59 L Blood Pressure [Lying] 79/38 L Blood Pressure [Sitting (for 1 minute prior to obtaining)] 77/41 L Blood Pressure Mean 76 76 Blood Pressure Mean [Lying] 51 Blood Pressure Mean [Sitting (for 1 minute prior to obtaining)] 53 Pulse Ox 99 99 Oxygen Delivery Method Room Air Room Air 07/05/23 03:30 07/05/23 05:30 Temperature Temperature Source Pulse Rate Pulse Rate [Lying] Pulse Rate [Sitting (for 1 minute prior to obtaining)] Respiratory Rate 16 Blood Pressure 101/70 Blood Pressure [Lying] Blood Pressure [Sitting (for 1 minute prior to obtaining)] Blood Pressure Mean 80 Blood Pressure Mean [Lying] Blood Pressure Mean [Sitting (for 1 minute prior to obtaining)] Pulse Ox Oxygen Delivery Method Weight Weight: 89.8 kg Body Mass Index (BMI) 35.0 Physical Exam Const alert, oriented x3, no apparent distress and well nourished Constitutional Narrative: Obese, middle-aged, white female, lying in bed, appears ill but nontoxic and not currently appearing uncomfortable General Appearance: cooperative HEENT normocephalic, head/scalp atraumatic, hearing grossly normal bilaterally and moist oral mucous membranes HEENT Narrative: Mallampati is 3, no thrush, dentition is good Eyes PERRL, EOMs intact bilaterally and conjunctivae normal Eyes Narrative: Conjunctiva are mildly pale bilaterally Neck no lymphadenopathy and supple Neck Narrative: Trachea midline, no thyroid enlargement Resp normal respiratory effort, no retractions, no use of accessory muscles and clear to auscultation bilaterally Auscultation: Negative for rales, rhonchi or wheezes Cardio regular rhythm, S1 normal heart sound, S2 normal heart sound, no murmurs, no rub, no gallops and no clicks Cardio Narrative: Mild tachycardia via GI normal to inspection, nondistended, normoactive bowel sounds and soft to palpation; Negative for non-tender GI Narrative: Tenderness in epigastric region and bilateral upper quadrants Extremity no clubbing, cyanosis or edema Extremity Narrative: 2+ pedal pulses Skin no rashes or lesions noted, no wounds, skin turgor normal, no jaundice, no petechiae and no mottling Skin Narrative: Few scattered tattoos, skin is pale Neuro oriented x3, CN's II-XII intact bilaterally, moves all extremities and no focal motor deficits Speech: speech normal Psych affect normal Psych Narrative: Pleasant, eye contact is good Results Lab / Micro Data Attestation: I reviewed the patient's lab results. 07/05/23 03:40 07/05/23 02:36 Labs: Laboratory Results - last 24 hr 07/05/23 02:36: WBC Cancelled, Corrected WBC Cancelled, RBC Cancelled, Hgb Cancelled, Hct Cancelled, MCV Cancelled, MCH Cancelled, MCHC Cancelled, RDW Std Deviation Cancelled, RDW Coeff of Patrice Cancelled, Plt Count Cancelled, MPV Cancelled, Immature Gran % (Auto) Cancelled, Neut % (Auto) Cancelled, Lymph % (Auto) Cancelled, [place] % (Auto) Cancelled, Eos % (Auto) Cancelled, Baso % (Auto) Cancelled, Absolute Neuts (auto) Cancelled, Absolute Lymphs (auto) Cancelled, Total Counted Cancelled, Neutrophils % (Manual) Cancelled, Band Neutrophils % Cancelled, Lymphocytes % (Manual) Cancelled, Monocytes % (Manual) Cancelled, Eosinophils % (Manual) Cancelled, Basophils % (Manual) Cancelled, Metamyelocytes % Cancelled, Myelocytes % Cancelled, Promyelocytes % Cancelled, Blast Cells % Cancelled, Plasma Cell % (Manual) Cancelled, Other Cells % Cancelled, Nucleated RBC % Cancelled, Nucleated RBCs/100 WBC Cancelled, Differential Comment Cancelled, Diff Path Review Cancelled, Hypersegmented Neuts Cancelled, Atypical Lymphocytes Cancelled, Reactive Lymphocytes Cancelled, Smudge Cells Cancelled, Toxic Granulation Cancelled, Toxic Vacuolation Cancelled, Dohle Bodies Cancelled, Kristi Rods Cancelled, Platelet Estimate Cancelled, Plt Morphology Comment Cancelled, RBC Morphology Cancelled 07/05/23 02:36: RBC Morphology Cancelled, Polychromasia Cancelled, Hypochromasia Cancelled, Poikilocytosis Cancelled, Basophilic Stippling Cancelled, Anisocytosis Cancelled, Microcytosis Cancelled, Macrocytosis Cancelled, Spherocytes Cancelled, Sickle Cells Cancelled, Target Cells Cancelled, Tear Drop Cells Cancelled, Ovalocytes Cancelled, Stomatocytes Cancelled, Garrison[place] Bodies Cancelled, Sears Cells Cancelled, Bite Cells Cancelled, Crenated Cell Cancelled, Acanthocytes (Spur) Cancelled, Rouleaux Cancelled, Schistocytes Cancelled, Sodium 137, Potassium 3.5, Chloride 111 H, Carbon Dioxide 18.0 L, Anion Gap 8, BUN 59 H, Creatinine 0.99, Estim Creat Clear Calc 56.24, Est GFR (MDRD) Af Amer 76, Est GFR (MDRD) Non-Af 63, BUN/Creatinine Ratio 59.6 H, Glucose 123 H, Calcium 8.3 L, Magnesium 2.7 H 07/05/23 02:41: Total Bilirubin 0.20, Direct Bilirubin 0.05, AST 9 L, ALT 16, Alkaline Phosphatase 61, Total Protein 7.0, Albumin 2.9 L, Globulin 4.1 07/05/23 03:40: WBC 12.5 H, RBC 3.01 L, Hgb 8.6 L, Hct 26.6 L, MCV 88.4, MCH 28.6, MCHC 32.3, RDW Std Deviation 45.0 H, RDW Coeff of Patrice 14.0, Plt Count 189, MPV 8.6, Immature Gran % (Auto) 1.100 H, Neut % (Auto) 67.5, Lymph % (Auto) 22.4, [place] % (Auto) 7.4, Eos % (Auto) 1.1, Baso % (Auto) 0.5, Absolute Neuts (auto) 8.4 H, Absolute Lymphs (auto) 2.80, Nucleated RBC % 0, PT 14.4, INR 1.1, APTT 28.0, Lactic Acid 1.3 Micro: Microbiology 07/05/23 02:57 Stool Stool Occult Blood (JOSHUA) - Final Occult Blood Positive Radiology Impression Abdomen/Pelvis CTA 07/05/23 04:08 IMPRESSION: 1. Mildly thick-walled collapsed appearance of the gastric antrum and slight enhancement at the inferior margin of the stomach at the anterior. There are some adjacent enlarged mesenteric lymph nodes in the root of the mesentery, measuring roughly 1.1 and 1.2 cm just inferior to the stomach and anterior to the pancreas, nonspecific. Best seen on coronal images. Correlate with endoscopy if it is thought to be indicated for upper GI bleeding. 2. Almost collapsed and mildly thick-walled appearance of much of the transverse colon, this could be due to nondistention or early or mild colitis. 3. Change in hardware at the lumbosacral spine new surgical changes and mild anterolisthesis at L3. Electronically Signed: Roseanna Freeman MD at 5:43 EDT , Assessment & Plan Assessment/Plan (1) Upper GI bleeding: (2) Syncope: (3) Acute blood loss anemia: (4) Lightheadedness: (5) Hypotension: (6) Colitis: (7) Diarrhea: PLAN: Plan Suspected upper GI bleed -CTA of the abdomen pelvis shows mildly thick walled collapsed appearance of the gastric antrum and slightly enhancement of the inferior margin of the stomach at the anterior area -Patient with coffee-ground emesis and positive guaiac stool -Disproportionate BUN to serum creatinine ratio with epigastric pain -Protonix drip initiated emergency department we will continue -N.p.o. -IV fluids -Every 6 hours H&H -Patient is not on relation at baseline -Consult GI--> Friend aware Acute blood loss anemia -Last hemoglobin per our record was 06/25/2021 and was 12.3 -Hemoglobin on presentation was 8.6 -Suspected upper GI bleed -Cycle every 6 hours H&H -Type and screen -Transfuse for precipitous drop or hemoglobin less than 7 -Anticipate EGD later today Hypotension/syncope -Suspect related to the above -Patient was hypotensive on presentation but now improving -We will place in ICU for close monitoring with this and above issues -EKG is unremarkable -Lactic acid was not elevated -Hold home antihypertensives Chest pain -EKG was unremarkable -We will cycle cardiac enzymes -Could be related to dyspepsia from GI bleed Diarrhea -Likely related to colitis as noted below -We will check C. difficile and enteric panel Colitis -Noted on CT of the abdomen in the area of transverse colon -Most likely ischemic from the above presentation -We will need outpatient colonoscopy per recommendations as she is 48 years old -GI consulted -Hold on antibiotics for now Hypertension -Hold home antihypertensives as patient was hypotensive on presentation -We will place order for as needed hydralazine if blood pressure starts to trend up -Restart home medications when appropriate History of migraines -No current issues History of GERD -Patient is not on any chronic medication for this Asthma -Continue as needed albuterol inhaler DVT prophylaxis -SCDs -Chemoprophylaxis contraindicated due to GI bleed CODE STATUS -Full code Charges/Coding Visit Charges Inpatient E&M: 09581 Init Hosp L3
[2023-07-05] MEDS: Morphine 2 MG/ML Syringe IV ×3 (07:40→20:34)
[2023-07-05] MEDS: Lactated Ringers 1,000 ML 70 ML IV ×2 (09:00→19:50)
[2023-07-05 10:10] LABS: Troponin-I HS 48 pg/mL (3.0-54.0)
[2023-07-05 10:21] LABS: Hemoglobin 7.9 g/dL (12.0-15.0)
--- NOTE | 2023-07-05 13:07 | EX.PCM.CON.G ---
HPI Consult Data Date of Consult: 07/05/23 HPI Narrative Reason for Consultation: GI bleed HPI Narrative: YOBANY ANGELO, is a 48 F who presents after multiple episodes of dark diarrheal stools. She has a past medical history of hypertension and previous TIA. She states that all week she has not felt well. She states that she cannot pinpoint any one symptom but today had multiple bouts of diarrhea. She states that in she did have generalized muscle aches and pain and at one point felt very lightheaded and dizzy and even passed out. She also had 1-2 episodes of vomiting that was dark brown in color. Secondary to her progressively worsening symptoms she was brought in for evaluation. The patient states she does not have a history of bleeding disorder nor does she take blood thinners. She states she has been no recent antibiotics travel or exposure to livestock with the diarrhea. She denies any previous EGD or colonoscopy or history of intestinal disorders such as ulcer colitis or Crohn's disease. She also denies any history of recurrent alcohol or NSAID use but does state that she takes acetaminophen multiple times per day and drinks a large amount of caffeine/soda. She reported loose stool/diarrhea and a few bouts of vomiting that were dark in color. There is concern for acute blood loss anemia/GI bleed along with dehydration versus acute kidney injury or electrolyte derangement as a cause of her symptoms. Orthostatic vital signs were ordered but with just sitting patient's blood pressure did not change drastically but she had severe dizziness correlating with her hypotension. Patient was given 2 L of IV fluid and her blood pressure improved. Rectal exam showed melanotic stool and therefore patient was started on a Protonix bolus and drip. Her labs showed elevation to her BUN at approximately 61 baseline is 20 also correlating with GI bleed. Patient's hemoglobin is down to 8.6 but the most recent value is from 2020 and it was 12.3. Patient denies history of alcohol abuse and my concern for esophageal varices is low but as she reports taking acetaminophen multiple times per day as well as drinking a large amount of soda and caffeine I do have concern for upper GI bleed. The patient CTA showed thickening of the gastric antrum and inferior portion of the stomach which would correlate with potential area of upper GI bleeding. There was also question of early colitis and patient does not have a fever but white count is slightly elevated. All other 16 review systems are negative except as per body mentioned HPI PFSH Medical History Asthma Essential (primary) hypertension GERD (gastroesophageal reflux disease) History of MRSA infection Idiopathic intracranial hypertension Migraines Mononucleosis Obesity (BMI 30-39.9) Seborrheic keratoses Syncope (2006) Home Medications albuterol sulfate 90 mcg/actuation aerosol inhaler 2 inh inhalation Q6H PRN Wheezing 11/01/20 [History Last Taken Unknown] amlodipine 5 mg tablet 5 mg PO DAILY blood pressure 11/01/20 [History Last Taken Unknown] lisinopril 40 mg tablet 40 mg PO DAILY #90 tabs 12/03/22 [Rx Last Taken Unknown] metoprolol succinate 50 mg tablet,extended release 24 hr (Toprol XL) 50 mg PO DAILY #90 tabs 12/03/22 [Rx Last Taken Unknown] acetazolamide 125 mg tablet 125 mg PO DAILY intracranial pressure 07/05/23 [History Last Taken Unknown] Allergy/AdvReac Type Severity Reaction Status Date / Time apple Allergy Swelling Verified 07/05/23 01:31 shellfish derived AdvReac Swelling Verified 07/05/23 01:31 Sulfa (Sulfonamide AdvReac Chest Verified 07/05/23 01:31 Antibiotics) tightness Family History Mother Hypertension Grandmother Myocardial infarction maternal Grandfather Myocardial infarction maternal Surgical History History of History of lumbar spinal fusion Social History (Updated 07/05/23 @ 07:[address] Pratima Cano DO) household members: family housing: house Smoking Status: Never smoker alcohol intake: current alcohol intake frequency: a few times a month substance use type: does not use ROS Constitutional Constitutional: Reports fatigue and weakness; Denies anorexia, change in weight, chills, fever(s), malaise, night sweats or other Eyes Eyes: Denies blurry vision, change in eye color, change in vision, discharge from eye(s), double vision, erythema, eye pain, loss of vision or other ENT HEENT: Denies abnormal hearing, dysphagia, ear pain, epistaxis, headache(s), hearing loss, nasal congestion, nasal discharge, post nasal drip, sinus pressure, sore throat or other Cardiovascular Cardiovascular: Reports chest pain and syncope; Denies claudication, dyspnea on exertion, edema, lightheadedness, orthopnea, palpitations, paroxysmal nocturnal dyspnea, rapid heart rate or other Respiratory/Chest Respiratory/Chest: Reports shortness of breath at rest; Denies cough, dyspnea, excessive phlegm production, hemoptysis, productive cough, shortness of breath with exertion, wheezing or other Gastrointestinal Gastrointestinal: Reports abdominal pain, coffee ground emesis, diarrhea, hematemesis, nausea and vomiting; Denies constipation, dyspepsia, hematochezia, loose stools, melena or other Genitourinary Genitourinary: Denies burning urination, difficulty urinating, dysuria, hematuria, nocturia, urinary frequency, urinary hesitancy, urinary incontinence, urinary urgency or other Musculoskeletal Musculoskeletal: Reports back pain; Denies arthralgias, joint pain, joint stiffness, joint swelling, myalgias, neck pain or other Neurologic Neurologic: Reports tingling; Denies abnormal gait, abnormal speech, confusion, disequilibrium, dizziness, focal weakness, headache(s), numbness, paresthesias, seizure-like activity, seizures, syncope, tremor(s) or other Psychiatric Psychiatric: Denies anxiety, depression, homicidal ideation, suicidal ideation or other Endocrine Endocrinology: Denies change in body appearance, cold intolerance, excessive sweating, heat intolerance, polydipsia, polyuria or other Hematologic/Lymphatic Hematologic/Lymphatic: Denies anemia, easy bleeding, easy bruising, lymphadenopathy or other Allergic/Immunologic Allergic/Immunologic: Denies rhinitis, hives, eczemia, asthma or other Physical Exam Const alert, oriented x3, no apparent distress and well nourished General Appearance: cooperative HEENT normocephalic, head/scalp atraumatic, hearing grossly normal bilaterally and moist oral mucous membranes HEENT Narrative: Mallampati is 3, no thrush, dentition is good Eyes PERRL, EOMs intact bilaterally and conjunctivae normal Eyes Narrative: Conjunctiva are mildly pale bilaterally Neck no lymphadenopathy and supple Neck Narrative: Trachea midline, no thyroid enlargement Resp normal respiratory effort, no retractions, no use of accessory muscles and clear to auscultation bilaterally Auscultation: Negative for rales, rhonchi or wheezes Cardio regular rhythm, S1 normal heart sound, S2 normal heart sound, no murmurs, no rub, no gallops and no clicks Cardio Narrative: Mild tachycardia via GI normal to inspection, nondistended, normoactive bowel sounds and soft to palpation; Negative for non-tender GI Narrative: Tenderness in epigastric region and bilateral upper quadrants Extremity no clubbing, cyanosis or edema Extremity Narrative: 2+ pedal pulses Skin no rashes or lesions noted, no wounds, skin turgor normal, no jaundice, no petechiae and no mottling Skin Narrative: Few scattered tattoos, skin is pale Neuro oriented x3, CN's II-XII intact bilaterally, moves all extremities and no focal motor deficits Speech: speech normal Psych affect normal Psych Narrative: Pleasant, eye contact is good Lab / Micro Data 07/05/23 09:50 07/05/23 02:36 Labs: Laboratory Results - last 24 hr 07/05/23 02:36: WBC Cancelled, Corrected WBC Cancelled, RBC Cancelled, Hgb Cancelled, Hct Cancelled, MCV Cancelled, MCH Cancelled, MCHC Cancelled, RDW Std Deviation Cancelled, RDW Coeff of Patrice Cancelled, Plt Count Cancelled, MPV Cancelled, Immature Gran % (Auto) Cancelled, Neut % (Auto) Cancelled, Lymph % (Auto) Cancelled, [place]idalgo % (Auto) Cancelled, Eos % (Auto) Cancelled, Baso % (Auto) Cancelled, Absolute Neuts (auto) Cancelled, Absolute Lymphs (auto) Cancelled, Total Counted Cancelled, Neutrophils % (Manual) Cancelled, Band Neutrophils % Cancelled, Lymphocytes % (Manual) Cancelled, Monocytes % (Manual) Cancelled, Eosinophils % (Manual) Cancelled, Basophils % (Manual) Cancelled, Metamyelocytes % Cancelled, Myelocytes % Cancelled, Promyelocytes % Cancelled, Blast Cells % Cancelled, Plasma Cell % (Manual) Cancelled, Other Cells % Cancelled, Nucleated RBC % Cancelled, Nucleated RBCs/100 WBC Cancelled, Differential Comment Cancelled, Diff Path Review Cancelled, Hypersegmented Neuts Cancelled, Atypical Lymphocytes Cancelled, Reactive Lymphocytes Cancelled, Smudge Cells Cancelled, Toxic Granulation Cancelled, Toxic Vacuolation Cancelled, Dohle Bodies Cancelled, Kristi Rods Cancelled, Platelet Estimate Cancelled, Plt Morphology Comment Cancelled, RBC Morphology Cancelled 07/05/23 02:36: RBC Morphology Cancelled, Polychromasia Cancelled, Hypochromasia Cancelled, Poikilocytosis Cancelled, Basophilic Stippling Cancelled, Anisocytosis Cancelled, Microcytosis Cancelled, Macrocytosis Cancelled, Spherocytes Cancelled, Sickle Cells Cancelled, Target Cells Cancelled, Tear Drop Cells Cancelled, Ovalocytes Cancelled, Stomatocytes Cancelled, [place] Bodies Cancelled, Ousmane Cells Cancelled, Bite Cells Cancelled, Crenated Cell Cancelled, Acanthocytes (Spur) Cancelled, Rouleaux Cancelled, Schistocytes Cancelled, Sodium 137, Potassium 3.5, Chloride 111 H, Carbon Dioxide 18.0 L, Anion Gap 8, BUN 59 H, Creatinine 0.99, Estim Creat Clear Calc 56.24, Est GFR (MDRD) Af Amer 76, Est GFR (MDRD) Non-Af 63, BUN/Creatinine Ratio 59.6 H, Glucose 123 H, Calcium 8.3 L, Magnesium 2.7 H 07/05/23 02:41: Total Bilirubin 0.20, Direct Bilirubin 0.05, AST 9 L, ALT 16, Alkaline Phosphatase 61, Total Protein 7.0, Albumin 2.9 L, Globulin 4.1 07/05/23 03:40: WBC 12.5 H, RBC 3.01 L, Hgb 8.6 L, Hct 26.6 L, MCV 88.4, MCH 28.6, MCHC 32.3, RDW Std Deviation 45.0 H, RDW Coeff of Patrice 14.0, Plt Count 189, MPV 8.6, Immature Gran % (Auto) 1.100 H, Neut % (Auto) 67.5, Lymph % (Auto) 22.4, Hidalgo % (Auto) 7.4, Eos % (Auto) 1.1, Baso % (Auto) 0.5, Absolute Neuts (auto) 8.4 H, Absolute Lymphs (auto) 2.80, Nucleated RBC % 0, PT 14.4, INR 1.1, APTT 28.0, Lactic Acid 1.3 07/05/23 07:37: Troponin I High Sens 48, Blood Type A POSITIVE, Antibody Screen NEGATIVE, Crossmatch See Detail 07/05/23 09:50: Hgb 7.9 L Micro: Microbiology 07/05/23 02:57 Stool Stool Occult Blood (JOSHUA) - Final Occult Blood Positive Radiology Impression Abdomen/Pelvis CTA 07/05/23 04:08 IMPRESSION: 1. Mildly thick-walled collapsed appearance of the gastric antrum and slight enhancement at the inferior margin of the stomach at the anterior. There are some adjacent enlarged mesenteric lymph nodes in the root of the mesentery, measuring roughly 1.1 and 1.2 cm just inferior to the stomach and anterior to the pancreas, nonspecific. Best seen on coronal images. Correlate with endoscopy if it is thought to be indicated for upper GI bleeding. 2. Almost collapsed and mildly thick-walled appearance of much of the transverse colon, this could be due to nondistention or early or mild colitis. 3. Change in hardware at the lumbosacral spine new surgical changes and mild anterolisthesis at L3. Electronically Signed: Roseanna Freeman MD at 5:43 EDT Reading Location ID and State: [facility] / [place] Tel , Service support , Assessment & Plan Assessment/Plan (1) Upper GI bleeding: (2) Syncope: (3) Acute blood loss anemia: (4) Lightheadedness: (5) Hypotension: QUALIFIERS: Hypotension type: other hypotension type Qualified Code(s): I95.89 - Other hypotension (6) Colitis: (7) Diarrhea: QUALIFIERS: Diarrhea type: unspecified type Qualified Code(s): R19.7 - Diarrhea, unspecified PLAN: Plan 48-year-old comes in with abdominal pain and with nausea and vomiting. She was discovered to have a significant 4 g drop in hemoglobin. Imaging with CT scan abdomen pelvis had showed mildly thick walled collapsed appearance of the gastric antrum and slightly enhancement of the inferior margin of the stomach at the anterior area. Differential diagnosis does include H. pylori associated peptic ulcer disease, may peptic ulcer disease, the Perez lesion, gastric antral vascular ectasia, gastritis. She should undergo an upper endoscopy to evaluate upper GI tract. She was explained alternatives, risk, benefits include not withstanding bleeding, infection, sepsis, perforation, need for emergent surgery . She have an ASA of 3. Charges/Coding Visit Charges Inpatient E&M: 61891 Init Hosp L3
--- NOTE | 2023-07-05 14:14 | OP.EGD_ITS ---
Patient Name: Melida Brooks Procedure Date: 07/05/2023 1:21 PM Date of : 1975 Age: 48 Procedure: Upper GI endoscopy Indications: Coffee-ground emesis, Melena Providers: Eros Eason DO Medicines: Monitored Anesthesia Care Patient Profile: This is a 48 year old female. Refer to note in patient chart for documentation of history and physical. Patient has symptoms of acute epigastric abdominal pain. Complications: No immediate complications. Procedure: Pre-Anesthesia Assessment: - Prior to the procedure, a History and Physical was performed, and patient medications and allergies were reviewed. The risks and benefits of the procedure and the sedation options and risks were discussed with the patient. All questions were answered and informed consent was obtained. Patient identification and proposed procedure were verified by the physician in the pre-procedure area. Mental Status Examination: alert and oriented. Airway Examination: normal oropharyngeal airway and neck mobility. Respiratory Examination: clear to auscultation. CV Examination: normal. Prophylactic Antibiotics: The patient does not require prophylactic antibiotics. Prior Anticoagulants: The patient has taken no anticoagulant or antiplatelet agents. ASA Grade Assessment: II - A patient with mild systemic disease. After reviewing the risks and benefits, the patient was deemed in satisfactory condition to undergo the procedure. The anesthesia plan was to use monitored anesthesia care (MAC). Immediately prior to administration of medications, the patient was re-assessed for adequacy to receive sedatives. The heart rate, respiratory rate, oxygen saturations, blood pressure, adequacy of pulmonary ventilation, and response to care were monitored throughout the procedure. The physical status of the patient was re-assessed after the procedure. After obtaining informed consent, the endoscope was passed under direct vision. Throughout the procedure, the patient's blood pressure, pulse, and oxygen saturations were monitored continuously. The Colonoscope was introduced through the mouth, and advanced to the second part of duodenum. The upper GI endoscopy was accomplished without difficulty. The patient tolerated the procedure well. Scope In: 1:58:10 PM Scope Out: 2:07:23 PM Total Procedure Duration Time 0 hours 9 minutes 13 seconds Findings: The examined esophagus was normal. The entire examined stomach was normal. Two oozing cratered duodenal ulcers with a visible vessel were found in the duodenal bulb. The largest lesion was 6 mm in largest dimension. Area was successfully injected with 10 mL of a 0.1 mg/mL solution of epinephrine for drug delivery. Coagulation for hemostasis using heater probe was successful. Coagulation for hemostasis using argon plasma at 0.3 liters/minute and 20 maxwell was successful. Estimated blood loss was minimal. One oozing linear duodenal ulcer with pigmented material was found in the first portion of the duodenum. The lesion was 1 mm in largest dimension. Coagulation for bleeding prevention using argon plasma at 0.3 liters/minute and 30 maxwell was successful. Impression: - Normal esophagus. - Normal stomach. - Oozing duodenal ulcers with a visible vessel. Injected. Treated with a heater probe. Treated with argon plasma coagulation (APC). - Oozing duodenal ulcer with pigmented material. Treated with argon plasma coagulation (APC). - No specimens collected. Recommendation: - [facility] care. - Full liquid diet. - Use sucralfate tablets 1 gram PO QID for 6 weeks. - Protonix 40 mg p.o. twice daily x12 weeks - Repeat upper endoscopy in approximately 2 to 3 months - Continue present medications. - No aspirin, ibuprofen, naproxen, or other non-steroidal anti-inflammatory drugs for 12 weeks. Procedure Code(s): --- Professional --- 94912, Esophagogastroduodenoscopy, flexible, transoral; with control of bleeding, any method 88919, 59,51, Esophagogastroduodenoscopy, flexible, transoral; with directed submucosal injection(s), any substance CPT copyright 2021 [employer]. All rights reserved. The codes documented in this report are preliminary and upon study coordinator review may be revised to meet current compliance requirements. Eros Eason DO 07/05/2023 2:14:06 PM This report has been signed electronically. Number of Addenda: 0 Note Initiated On: 07/05/2023 1:21 PM
--- NOTE | 2023-07-05 14:14 | OP.CCLET_ITS ---
07/05/2023 Fred Joseph Re : Upper GI endoscopy procedure for Melida Brooks Dear Jake This procedure was performed on Wednesday, July 05, 2023. My impressions and recommendations are as follows: Impressions : - Normal esophagus. - Normal stomach. - Oozing duodenal ulcers with a visible vessel. Injected. Treated with a heater probe. Treated with argon plasma coagulation (APC). - Oozing duodenal ulcer with pigmented material. Treated with argon plasma coagulation (APC). - No specimens collected. Recommendations : - Return patient to [facility] for [facility] care. - Full liquid diet. - Use sucralfate tablets 1 gram PO QID for 6 weeks. - Protonix 40 mg p.o. twice daily x12 weeks - Repeat upper endoscopy in approximately 2 to 3 months - Continue present medications. - No aspirin, ibuprofen, naproxen, or other non-steroidal anti-inflammatory drugs for 12 weeks. My findings are described in the full procedure note, which is enclosed. If I can be of further assistance, please feel free to contact me at . Sincerely, Eros Eason, 07/05/2023 2:14:06 PM This report has been signed electronically.
--- NOTE | 2023-07-05 15:10 | CASEMGMT ---
LYNNE THAKUR Assessment: Face to Face with pt for initial transition planning/care coordination assessment. RN CM introduced self and role at [facility], pt voices understanding and consents to assessment. Pt is A&O x4 and answers all questions appropriately at this time. Pt lying in bed with nurse and visitors at bedside. Pt agreeable to assessment with visitors present. Pt receiving blood. Care providers, pharmacy, and demographics verified/updated. Admitting Dx: upper GIB, hypotension PCP:Jose Manuel AMBRIZ Specialists:Sushma, cardio; MARITZA PageF main for brain stem stents, spinal OR at [facility] Preferred [facility]acy: [facility] Insurance: [employer] Prescription Benefit: yes LNOK: Radha Brooks, son; Stephanie Brooks, son Living Arrangements: Pt lives alone in a two story home with 3 steps to enter. Pt reports she is I in ADL's and denies concerns at home. Transportation: Pt drives self and denies concerns with transportation. DME:nebulizer HHC/SNF: [facility] homecare in the past, denies SNF stays Pt states no concerns with going home at time of dc. Pt states no further concerns/needs. CM to follow. Advised pt to ask CM if any further question/concerns/needs arise, voices understanding. Pt Goal: Home Plan: Home
[2023-07-05 15:31] LABS: Troponin-I HS 38 pg/mL (3.0-54.0)
[2023-07-05] MEDS: Sucralfate 1 GM Tablet PO (16:30)
[2023-07-05] MEDS: 0.9% Saline Lock 10 ML Syringe IV (17:34)
--- NOTE | 2023-07-05 17:37 | CASEMGMT ---
Social Work SW met with patient and introduced self and role as [facility] SW. Patient lying in hospital bed and agreeable to speak with SW. SW engaged patient in conversation to complete SDoH. Patient lives alone in her home and reports a recent water leak, however, patient has someone coming next week to assist with repairing. Patient drives herself and has no transportation concerns. No safety or other concerns nor needs voiced. Patient is not connected to any community resources and declined information for resources. SW remains available if additional needs arise. Jaci Garcia FUR NAILER, KHARI
[2023-07-05 18:14] LABS: Hemoglobin 8.7 g/dL (12.0-15.0)
[2023-07-05 18:31] LABS: Troponin-I HS 32 pg/mL (3.0-54.0)
[2023-07-06] VITALS (28 sets, daily range): BP systolic 86–117; BP diastolic 50–85; PULSE 81–128; RESP 12–21; TEMP 36.9–38.4; O2SAT 91–100; BMI 35.1
[2023-07-06 00:44] LABS: Hemoglobin 8.2 g/dL (12.0-15.0)
[2023-07-06] MEDS: Pantoprazole Sodium 80 MG in 0.9% Normal Saline (100mL Bag) 80 ML 10 MG CONT INF ×3 (03:28→23:54)
[2023-07-06] MEDS: 0.9% Saline Lock 10 ML Syringe IV ×3 (03:37→14:06)
[2023-07-06 03:54] LABS: Absolute Lymphocyte Count 3.26 X10^3/uL (0.83-4.51); Absolute Neutrophil Count 6.8 X10^3/uL (2.0-7.7); Basophil# 0.03 X10^3/uL; Basophil% 0.3 % (0-1); Eosinophil# 0.17 X10^3/uL; Eosinophils% 1.5 % (0-5); Hematocrit 24.8 % (37-47); Hemoglobin 7.9 g/dL (12.0-15.0); Lymphocyte # 3.26 X10^3/ul (0.83-4.51); Lymphocyte % 29.4 % (19-41); Mean Corp Hgb Conc 31.9 g/dL (32-36); Mean Corpuscular Volume 91.2 fL (81-99); Mean Platelet Vol. 8.5 fl (6.2-12.0); Monocyte# 0.77 X10^3/uL; Monocyte% 6.9 % (0-10); NRBC Flagged by Analyzer 0 % (0-5); Neutrophil # 6.79 X10^3/uL (2.7-7.7); Neutrophil % 61.4 % (47-70); Platelet Count 145 K/mm3 (150-450); RBC Distribution Width SD 46.7 fl (35.1-43.9); Red Blood Count 2.72 M/mm3 (4.2-5.4); White Blood Count 11.1 K/mm3 (4.4-11.0)
[2023-07-06 04:13] LABS: ALB/GLOB Ratio 0.9 RATIO (0.9-2.4); AST(SGOT) 6 U/L (15-37); Alanine Aminotransfer ALT/SGPT 12 U/L (13-56); Albumin, Serum 2.5 g/dL (3.2-5.0); Alkaline Phosphatase 46 U/L (45-117); Anion Gap 4 (5-15); BUN 21 mg/dL (7-18); BUN/Creat Ratio 23.2 RATIO (10-20); Calcium,Total 7.7 mg/dL (8.5-10.1); Chloride 111 mmol/L (98-107); Creatinine, Serum 0.91 mg/dL (0.55-1.02); EST Glomerular Filtration Rate 70 mL/min (>60); Est Glom Filt Rate - Afr Amer 84 mL/min (>60); Estimated Creatinine Clearance 61.18 ml/min; Globulin 2.9 g/dL (2.2-4.2); Glucose 103 mg/dL (74-106); Magnesium 2.1 mg/dL (1.6-2.6); Protein, Total 5.4 g/dL (6.4-8.2); Sodium Level 142 mmol/L (136-145)
[2023-07-06] MEDS: metroNIDAZOLE 500 MG/100 ML BAG 100 MG IV (04:31)
[2023-07-06] MEDS: Morphine 2 MG/ML Syringe IV (04:32)
[2023-07-06] MEDS: Acetaminophen 325 MG Tablet 650 MG PO ×3 (04:32→16:21)
--- NOTE | 2023-07-06 07:34 | RAD_ITS ---
STUDY: X-RAY CHEST REASON FOR EXAM: Female, 48 years old. Fever TECHNIQUE: Frontal view of the chest COMPARISON: 07/21/2017 FINDINGS: The lungs are clear. There are no pleural effusions. There is no pneumothorax. The heart is stable in size. The visualized osseous structures are within normal limits. RAD/Chest 1 View (Portable) IMPRESSION: No acute thoracic pathology. Electronically Signed: Waldo Kapoor MD at 8:54 EDT ,
[2023-07-06] MEDS: Sucralfate 1 GM Tablet PO ×3 (08:42→15:29)
[2023-07-06] MEDS: Piperacil/Tazobactam 3.375 GM in 0.9% Normal Saline (50mL MB+) 50 ML IV ×3 (08:45→20:39)
[2023-07-06 09:54] LABS: Mucous, Urine 0 SEEN /hpf (<or=2+); Red Blood Cells-Urine 0 SEEN /hpf (0-5)
[2023-07-06] MEDS: AcetaZOLAMIDE 250 MG Tablet PO (10:27)
[2023-07-06 10:33] LABS: Color, Urine Yellow (Yellow); Glucose, Dipstick Normal (Normal); Ketone-Dipstick Negative (Negative); Leukocyte Esterase-Dipstick 100 /ul (Negative); Nitrite-Dipstick Negative (Negative); Occult Blood-Urine 10 /ul (Negative); Protein-Dipstick 15 mg/dl (Negative); Specific Gravity, Urine 1.015 (1.002-1.030); Urine Bilirubin Dipstick Negative (Negative); Urine Clarity Clear (Clear); Urine Urobilinogen Normal (Normal)
--- NOTE | 2023-07-06 10:35 | PCM.PN.HOSP ---
Reason for Visit Reason for Visit: Syncope/hematemesis Subjective Subjective Patient was found to have extensive duodenal ulcers yesterday on EGD. She initially on admission had denied NSAID use however family stated that she was taking Advil all the time for headaches. I did discuss with her that her headaches may be due to her NSAID usage as well and recommended follow-up with neurology if this has been a problem for her. She developed a fever overnight. Unclear if this is from infection or related to a transfusion reaction. Blood pressures have remained borderline. Did give her 1 unit of packed red blood cells yesterday and her hemoglobin appropriately corrected but then has trended back down today and is 7.9 this morning. She does complain of some mild epigastric pain today but no other complaints at this time other than feeling warm. Objective Data Objective Data Vital Signs: Vital Signs Temp Pulse Resp BP Pulse Ox O2 Del Method 98.6 F 98 15 89/79 L 95 Room Air 07/06/23 08:00 07/06/23 10:00 07/06/23 10:00 07/06/23 10:00 07/06/23 10:00 07/06/23 10:00 Oxygen Delivery Method Room Air Weight: 89.9 kg Body Mass Index (BMI) 35.1 Intake & Output: Intake and Output for Last 24 Hours 07/04/23 07/05/23 07/06/23 23:59 23:59 23:59 Intake Total 3354.66 / 3384.66 1047.00 / 1047.00 Output Total 600 / 600 300 / 300 Balance 2754.66 / 2784.66 747.00 / 747.00 Lab / Micro Data 07/06/23 03:42 07/06/23 03:42 Labs: Laboratory Results - last 24 hr 07/05/23 07:37: Crossmatch See Detail 07/05/23 07:37: Crossmatch See Detail 07/05/23 14:50: Troponin I High Sens 38 07/05/23 18:05: Hgb 8.7 L, Troponin I High Sens 32 07/06/23 00:35: Hgb 8.2 L 07/06/23 03:42: WBC 11.1 H, RBC 2.72 L, Hgb 7.9 L, Hct 24.8 L, MCV 91.2, MCH 29.0, MCHC 31.9 L, RDW Std Deviation 46.7 H, RDW Coeff of Patrice 14.0, Plt Count 145 L, MPV 8.5, Immature Gran % (Auto) 0.500, Neut % (Auto) 61.4, Lymph % (Auto) 29.4, [place] % (Auto) 6.9, Eos % (Auto) 1.5, Baso % (Auto) 0.3, Absolute Neuts (auto) 6.8, Absolute Lymphs (auto) 3.26, Nucleated RBC % 0, Sodium 142, Potassium 4.0, Chloride 111 H, Carbon Dioxide 27.0, Anion Gap 4 L, BUN 21 H, Creatinine 0.91, Estim Creat Clear Calc 61.18, Est GFR (MDRD) Af Amer 84, Est GFR (MDRD) Non-Af 70, BUN/Creatinine Ratio 23.2 H, Glucose 103, Calcium 7.7 L, Phosphorus 3.0, Magnesium 2.1, Total Bilirubin 0.40, AST 6 L, ALT 12 L, Alkaline Phosphatase 46, Total Protein 5.4 L, Albumin 2.5 L, Globulin 2.9, Albumin/Globulin Ratio 0.9 Micro: Microbiology 07/06/23 04:45 Nasal Secretion SARS-CoV-2 & FLU Antigen (Rapid) - Final 07/05/23 02:57 Stool Stool Occult Blood (JOSHUA) - Final Occult Blood Positive Radiography Diagnostic Testing: Radiology Impression Chest X-Ray 07/06/23 07:34 IMPRESSION: No acute thoracic pathology. Electronically Signed: Waldo Kapoor MD at 8:54 EDT , Physical Exam Const alert, oriented x3, no apparent distress and well nourished Constitutional Narrative: Obese, middle-aged, white female, lying in bed, appears ill but nontoxic and not currently appearing uncomfortable General Appearance: cooperative HEENT normocephalic, head/scalp atraumatic, hearing grossly normal bilaterally and moist oral mucous membranes HEENT Narrative: Mallampati 2-3, no thrush Resp normal respiratory effort, no retractions, no use of accessory muscles and clear to auscultation bilaterally Auscultation: Negative for rales, rhonchi or wheezes Cardio regular rate, regular rhythm, S1 normal heart sound, S2 normal heart sound, no murmurs, no rub, no gallops and no clicks GI normal to inspection, nondistended, normoactive bowel sounds, soft to palpation and non-tender Extremity no clubbing, cyanosis or edema Extremity Narrative: 2+ pedal pulses Neuro oriented x3, moves all extremities and no focal motor deficits Speech: speech normal Psych affect normal Psych Narrative: Pleasant, eye contact is good Assessment & Plan Assessment/Plan (1) Upper GI bleeding: (2) Syncope: (3) Acute blood loss anemia: (4) Lightheadedness: (5) Hypotension: QUALIFIERS: Hypotension type: other hypotension type Qualified Code(s): I95.89 - Other hypotension (6) Colitis: (7) Diarrhea: QUALIFIERS: Diarrhea type: unspecified type Qualified Code(s): R19.7 - Diarrhea, unspecified (8) Fever: PLAN: Plan Upper GI bleed secondary to duodenal ulcers -CTA of the abdomen pelvis shows mildly thick walled collapsed appearance of the gastric antrum and slightly enhancement of the inferior margin of the stomach at the anterior area -EGD done on 07/05/2023 demonstrated a normal esophagus and stomach but an oozing duodenal ulcer with a visible vessel that was treated with heater probe and APC as well as a oozing duodenal ulcer with pigmented material that was treated with APC -Patient was transfused 1 unit packed red blood cells however hemoglobin has not significantly improved within 24 hours -We will continue Protonix drip for now but intention is transition to Protonix 40 mg p.o. twice daily for 12 weeks -Carafate has also been initiated and she is to continue this with 1 g p.o. 4 times daily for 6 weeks -Will need follow-up EGD in 3 months -If hemoglobin does not stabilize may need repeat endoscopy tomorrow -We will transfuse 1 more unit today Acute blood loss anemia secondary to upper GI bleed -Last hemoglobin per our record was 06/25/2021 and was 12.3 -Hemoglobin on presentation was 8.6 but hemoglobin did drop subsequently to 7.9 and patient was transfused 1 unit packed red blood cells--> hemoglobin improved to 8.7 however today is back down to 7.9--> transfusing 1 more unit of packed red blood cells on 07/06/2023 -Suspected upper GI bleed -Patient may need repeat endoscopy if hemoglobin does not stabilize -Repeat hemoglobin after transfusion and again tomorrow morning -We will discuss further with GI Fever -The allergy is unclear--> could be infection versus transfusion reaction -Patient did have colitis on her CT however it was suspected to be ischemic--> continue Zosyn initiated this morning -Biotics were held initially on admission per discussion with GI -Cultures are pending -COVID 18 and flu are pending -Respiratory viral panel pending -We will transition to Zosyn from ceftriaxone and metronidazole -Continue to monitor Hypotension/syncope -Suspect related to the above however patient did develop fever yesterday -Blood pressures are still borderline -EKG is unremarkable -Lactic acid was not elevated -Continue to hold home antihypertensives Chest pain -Resolved -Cardiac enzymes were unremarkable -EKG on presentation was unremarkable Diarrhea -Resolved -We will discontinue enteric panel -May have been related to GI bleeding Hypertension -Hold home antihypertensives as patient was hypotensive on presentation -We will place order for as needed hydralazine if blood pressure starts to trend up -Restart home medications when appropriate History of migraines -Patient has ongoing headache issues -Was taking NSAIDs religiously at home -We have discussed the need to not take NSAIDs -Highly recommend outpatient follow-up with neurology after discharge History of GERD -Patient is not on any chronic medication for this Asthma -Continue as needed albuterol inhaler DVT prophylaxis -SCDs -Chemoprophylaxis contraindicated due to GI bleed CODE STATUS -Full code Charges/Coding Visit Charges Inpatient E&M: 49635 Subs Hosp L2
[2023-07-06 10:43] LABS: Bacteria RARE /hpf (None Seen); Squamous Epithelial Cells - UA 0-5 SEEN /hpf (5-10); White Blood Cells 5-10 SEEN /hpf (0-5)
[2023-07-06 10:47] LABS: Hemoglobin 8.3 g/dL (12.0-15.0)
[2023-07-06 10:55] LABS: M R Staph aureus DNA By PCR Negative (Negative); Probe Check PASS; Specimen Processing Control PASS
[2023-07-06 14:07] LABS: Hematocrit 29.1 % (37-47); Hemoglobin 9.1 g/dL (12.0-15.0)
--- NOTE | 2023-07-06 14:28 | CT_ITS ---
STUDY: CT BRAIN WITHOUT CONTRAST REASON FOR EXAM: Female, 48 years old. Headache RADIATION DOSAGE (If Supplied By Facility): CTDIvol = ( 44.99 ) mGy, DLP = ( 762.36 ) mGycm TECHNIQUE: Transaxial CT imaging of the brain was performed without administration of intravenous contrast material. Individualized dose optimization techniques were used for this CT. COMPARISON: Prior study dated: MRI 06/25/2022 FINDINGS: PARENCHYMA: There is no acute bleed or infarct. There are normal white matter tracts. There is a stent noted in the right transverse sinus. VENTRICLES: There is no hydrocephalus. MASTOID AIR CELLS AND PARANASAL SINUSES: The visualized paranasal sinuses are clear. The mastoid air cells are clear. BONES: There is no skull fracture. SOFT TISSUES: The visualized soft tissues are within normal limits. CT/Brain/Head without Contrast IMPRESSION: No acute intracranial abnormality. No hydrocephalus Electronically Signed: Waldo Kapoor MD at 15:13 EDT ,
[2023-07-07] VITALS (15 sets, daily range): BP systolic 93–117; BP diastolic 64–81; PULSE 62–83; RESP 13–19; TEMP 36.1–37.8; O2SAT 94–99; BMI 34.7
[2023-07-07 03:22] LABS: Absolute Lymphocyte Count 3.08 X10^3/uL (0.83-4.51); Absolute Neutrophil Count 4.5 X10^3/uL (2.0-7.7); Basophil# 0.06 X10^3/uL; Basophil% 0.7 % (0-1); Eosinophil# 0.28 X10^3/uL; Eosinophils% 3.2 % (0-5); Hematocrit 29.3 % (37-47); Hemoglobin 9.1 g/dL (12.0-15.0); Lymphocyte # 3.08 X10^3/ul (0.83-4.51); Lymphocyte % 34.8 % (19-41); Mean Corp Hgb Conc 31.1 g/dL (32-36); Mean Corpuscular Hgb 28.3 pg (27.0-32.0); Mean Corpuscular Volume 91.3 fL (81-99); Mean Platelet Vol. 8.5 fl (6.2-12.0); Monocyte# 0.84 X10^3/uL; Monocyte% 9.5 % (0-10); NRBC Flagged by Analyzer 0 % (0-5); Neutrophil # 4.53 X10^3/uL (2.7-7.7); Neutrophil % 51.2 % (47-70); Platelet Count 162 K/mm3 (150-450); RBC Distribution Width CV 14.3 % (11.6-14.6); RBC Distribution Width SD 47.5 fl (35.1-43.9); Red Blood Count 3.21 M/mm3 (4.2-5.4); White Blood Count 8.8 K/mm3 (4.4-11.0)
[2023-07-07 03:36] LABS: Anion Gap 5 (5-15); BUN 16 mg/dL (7-18); BUN/Creat Ratio 15.1 RATIO (10-20); Chloride 112 mmol/L (98-107); Creatinine, Serum 1.06 mg/dL (0.55-1.02); EST Glomerular Filtration Rate 58 mL/min (>60); Est Glom Filt Rate - Afr Amer 70 mL/min (>60); Estimated Creatinine Clearance 52.52 ml/min; Glucose 123 mg/dL (74-106); Potassium 3.9 mmol/L (3.5-5.1); Sodium Level 141 mmol/L (136-145)
[2023-07-07] MEDS: 0.9% Saline Lock 10 ML Syringe IV (05:12)
[2023-07-07] MEDS: Piperacil/Tazobactam 3.375 GM in 0.9% Normal Saline (50mL MB+) 50 ML IV (05:12)
--- NOTE | 2023-07-07 07:00 | PN.GI_ITS ---
Subjective Subjective Patient doing well without any abdominal pain or cramping. She denies any nausea and is tolerating a normal diet. Objective Data Objective Data Vital Signs: Vital Signs Temp Pulse Resp BP Pulse Ox O2 Del Method 97.5 F L 83 13 117/77 99 Room Air 07/07/23 12:00 07/07/23 12:00 07/07/23 12:00 07/07/23 12:00 07/07/23 12:00 07/07/23 12:00 Oxygen Delivery Method Room Air Weight: 196 lb 6 oz Body Mass Index (BMI) 34.7 Intake & Output: Intake and Output for Last 24 Hours 07/05/23 07/06/23 07/07/23 23:59 23:59 23:59 Intake Total 3354.66 / 3384.66 2452.66 / 2452.66 680 / 680 Output Total 600 / 600 1200 / 1200 Balance 2754.66 / 2784.66 1252.66 / 1252.66 680 / 680 Lab / Micro Data 07/07/23 03:12 07/07/23 03:12 Labs: Laboratory Results - last 24 hr 07/07/23 03:12: WBC 8.8, RBC 3.21 L, Hgb 9.1 L, Hct 29.3 L, MCV 91.3, MCH 28.3, MCHC 31.1 L, RDW Std Deviation 47.5 H, RDW Coeff of Patrice 14.3, Plt Count 162, MPV 8.5, Immature Gran % (Auto) 0.600, Neut % (Auto) 51.2, Lymph % (Auto) 34.8, [place] % (Auto) 9.5, Eos % (Auto) 3.2, Baso % (Auto) 0.7, Absolute Neuts (auto) 4.5, Absolute Lymphs (auto) 3.08, Nucleated RBC % 0, Sodium 141, Potassium 3.9, Chloride 112 H, Carbon Dioxide 24.0, Anion Gap 5, BUN 16, Creatinine 1.06 H, Estim Creat Clear Calc 52.52, Est GFR (MDRD) Af Amer 70, Est GFR (MDRD) Non-Af 58 L, BUN/Creatinine Ratio 15.1, Glucose 123 H, Calcium 8.0 L Micro: Microbiology 07/06/23 10:37 Mucosa - Nasopharyngeal Respiratory Panel (PCR) - Final Parainfluenza 2 07/06/23 04:45 Nasal Secretion SARS-CoV-2 & FLU Antigen (Rapid) - Final 07/05/23 02:57 Stool Stool Occult Blood (JOSHUA) - Final Occult Blood Positive Radiography Diagnostic Testing: Radiology Impression Brain CT 07/06/23 14:28 IMPRESSION: No acute intracranial abnormality. No hydrocephalus Electronically Signed: Waldo Kapoor MD at 15:13 EDT , Physical Exam Const alert, oriented x3, no apparent distress and well nourished Constitutional Narrative: Obese, middle-aged, white female, lying in bed, appears ill but nontoxic and not currently appearing uncomfortable General Appearance: cooperative HEENT normocephalic, head/scalp atraumatic, hearing grossly normal bilaterally and moist oral mucous membranes HEENT Narrative: Mallampati 2-3, no thrush Resp normal respiratory effort, no retractions, no use of accessory muscles and clear to auscultation bilaterally Auscultation: Negative for rales, rhonchi or wheezes Cardio regular rate, regular rhythm, S1 normal heart sound, S2 normal heart sound, no murmurs, no rub, no gallops and no clicks GI normal to inspection, nondistended, normoactive bowel sounds, soft to palpation and non-tender Extremity no clubbing, cyanosis or edema Extremity Narrative: 2+ pedal pulses Neuro oriented x3, moves all extremities and no focal motor deficits Speech: speech normal Psych affect normal Psych Narrative: Pleasant, eye contact is good Assessment & Plan Assessment/Plan (1) Upper GI bleeding: (2) Syncope: (3) Acute blood loss anemia: (4) Lightheadedness: (5) Hypotension: QUALIFIERS: Hypotension type: other hypotension type Qualified Code(s): I95.89 - Other hypotension (6) Colitis: (7) Diarrhea: QUALIFIERS: Diarrhea type: unspecified type Qualified Code(s): R19.7 - Diarrhea, unspecified (8) Fever: QUALIFIERS: Encounter type: initial encounter PLAN: Plan Upper GI bleed secondary to duodenal ulcers -CTA of the abdomen pelvis shows mildly thick walled collapsed appearance of the gastric antrum and slightly enhancement of the inferior margin of the stomach at the anterior area -EGD done on 07/05/2023 demonstrated a normal esophagus and stomach but an oozing duodenal ulcer with a visible vessel that was treated with heater probe and APC as well as a oozing duodenal ulcer with pigmented material that was treated with APC -Patient was transfused 1 unit packed red blood cells however hemoglobin has not significantly improved within 24 hours -We will continue Protonix drip for now but intention is transition to Protonix 40 mg p.o. twice daily for 12 weeks -Carafate has also been initiated and she is to continue this with 1 g p.o. 4 times daily for 6 weeks -Will need follow-up EGD in 3 months -If hemoglobin does not stabilize may need repeat endoscopy tomorrow -We will transfuse 1 more unit today Acute blood loss anemia secondary to upper GI bleed -Last hemoglobin per our record was 06/25/2021 and was 12.3 -Hemoglobin on presentation was 8.6 but hemoglobin did drop subsequently to 7.9 and patient was transfused 1 unit packed red blood cells--> hemoglobin improved to 8.7 however today is back down to 7.9--> transfusing 1 more unit of packed red blood cells on 07/06/2023 -Suspected upper GI bleed -Patient may need repeat endoscopy if hemoglobin does not stabilize -Repeat hemoglobin after transfusion and again tomorrow morning
[2023-07-07] MEDS: Sucralfate 1 GM Tablet PO ×2 (08:08→10:15)
[2023-07-07] MEDS: AcetaZOLAMIDE 250 MG Tablet PO (08:08)
[2023-07-07] MEDS: Pantoprazole Sodium 80 MG in 0.9% Normal Saline (100mL Bag) 80 ML 10 MG CONT INF (10:15)
--- NOTE | 2023-07-07 13:38 | DCINST_ITS ---
Discharge Instructions Diet Discharge Diet: No restrictions Activity Discharge Activity: Return to Normal Activity Weight Bearing Status: Full weight bearing Follow Up Care Please Follow Up With: Fred Joseph PA When: 1 to 2 weeks Test Results: Test results from this visit will be discussed in further detail at your follow- up appointment, if applicable. Pending Tests Upon Discharge: None Discharge Plan Admission Admit Date/Time: 07/05/23 06:54 Primary Reason for Your Visit: GI bleed Attending Provider: Brent Lr Primary Care Provider: Fred Joseph Consulting Providers: Pratima Cano Instructions Additional Instructions / Restrictions: Please take the following medication as prescribed: ? Protonix 40 mg twice daily ? Ciprofloxacin 500 mg twice daily through 07/10 ? Flagyl 375 mg twice daily through 07/10 Continue all other home medications as prescribed. Please follow-up with your primary care doctor in the next 1 to 2 weeks to have your blood counts rechecked. Please call the neurologist office to schedule an appointment for your chronic headaches as needed. Discharge Orders/Prescriptions Prescriptions: New pantoprazole [Protonix] 40 mg tablet,delayed release (DR/EC) 40 mg PO BID Qty: 60 2RF ciprofloxacin HCl [Cipro] 500 mg tablet 500 mg PO BID Qty: 7 0RF metronidazole [Flagyl] 375 mg capsule 375 mg PO BID Qty: 7 0RF Continued amlodipine 5 mg tablet 5 mg PO DAILY albuterol sulfate 90 mcg/actuation HFA aerosol inhaler 2 inh INHALATION Q6H PRN (Reason: Wheezing) Patient Comments: inhale 2 puffs by mouth and INTO THE LUNGS every 4 hours if needed acetazolamide 125 mg tablet 125 mg PO DAILY lisinopril 40 mg tablet 40 mg PO DAILY Qty: 90 3RF metoprolol succinate [Toprol XL] 50 mg tablet extended release 24 hr 50 mg PO DAILY Qty: 90 3RF Referrals / Follow Up: Fred Joseph PA [Primary Care Provider] - Disposition Disposition (needs filled in before D/C Order can be placed): Home, Self Care
--- NOTE | 2023-07-07 13:45 | PCM.DC.SUM ---
Providers Date of Admission: 07/05/23 Primary Care Physician: PB Yun Consultations 07/05/23 08:24 Consult: Gastroenterology Routine Consulting Provider: Steve Gastroenter[facility] Reason for Consult: UGIB EMERGENT Consult: No MD Notified: Yes Date Notified: 07/05/23 Time Notified: 06:55 Method of Notification: ED Physician Initiated Reason For Visit: UPPER GI BLEED,HYPOTENSION Diagnosis Discharge Diagnosis (1) Upper GI bleeding: Status: Acute Code(s): K92.2 - Gastrointestinal hemorrhage, unspecified (2) Syncope: Status: Acute Code(s): R55 - Syncope and collapse (3) Acute blood loss anemia: Status: Acute Code(s): D62 - Acute posthemorrhagic anemia (4) Lightheadedness: Status: Acute Code(s): R42 - Dizziness and giddiness (5) Hypotension: Status: Acute Code(s): I95.9 - Hypotension, unspecified Qualifiers: Hypotension type: other hypotension type Qualified Code(s): I95.89 - Other hypotension (6) Colitis: Status: Acute Code(s): K52.9 - Noninfective gastroenteritis and colitis, unspecified (7) Diarrhea: Status: Acute Code(s): R19.7 - Diarrhea, unspecified Qualifiers: Diarrhea type: unspecified type Qualified Code(s): R19.7 - Diarrhea, unspecified (8) Fever: Status: Acute Code(s): R50.9 - Fever, unspecified Medications at Discharge Home Medications albuterol sulfate 90 mcg/actuation aerosol inhaler 2 inh inhalation Q6H PRN Wheezing 11/01/20 metoprolol succinate 50 mg tablet,extended release 24 hr (Toprol XL) 50 mg PO DAILY #90 tabs 12/03/22 acetazolamide 125 mg tablet 125 mg PO DAILY intracranial pressure 07/05/23 ciprofloxacin HCl 500 mg tablet (Cipro) 500 mg PO BID #7 tabs 07/07/23 metronidazole 375 mg capsule (Flagyl) 375 mg PO BID #7 caps 07/07/23 pantoprazole 40 mg tablet,delayed release (Protonix) 40 mg PO BID #60 tabs 07/07/23 sucralfate 100 mg/mL oral suspension (Carafate) 10 ml PO BID #1,000 mL 07/07/23 Hospital Course Operations None Procedures EGD and - (CTA abdomen/pelvis, chest x-ray, CT brain without contrast) Summary of Care Provided Minutes Spent on Discharge: 38 Hospital Course: Patient is a 48-year-old female with history of hypertension, migraines, GERD and asthma who presented to [facility] on 07/05/2023 with hematemesis and generalized weakness. Hospital course with medical concerns addressed as below. Upper GI bleed, acute blood loss anemia: Patient presented with reporting multiple episodes of hematemesis at home along with worsening weakness. Hemoglobin 8.6 on presentation, previous hemoglobin of 12.3 back in 2020. Hemoglobin dropped to 7.9 on second check after admission, was transfused 1 unit of packed red blood cells at that time with improvement to 8.7. However, trended back down to 7.9 the following day and patient received another unit of packed red blood cells with improvement to around 9. CTA abdomen/pelvis on admit showed mildly thick-walled collapsed appearance of the gastric antrum and slight enhancement of the inferior margin of the stomach at the anterior area. Gastroenterology followed. EGD 07/05 showed normal esophagus and stomach but an oozing duodenal ulcer with visible vessel that was treated with heater probe and APC, as well as and oozing duodenal ulcer with pigmented material that was treated with APC. Suspected that ulcers are secondary to heavy NSAID use for her history of migraines as noted below. Patient hemoglobin remained stable after second unit of blood. Was on Protonix drip during hospitalization, discharged on PPI twice daily. Had some improvement of GERD symptoms with Carafate as well, discharged with prescription for Carafate. Per GI recommendations, will need follow-up EGD in 3 months. Recommend follow-up CBC in 5 to 7 days to ensure continued stability of hemoglobin. Fever, concern for intra-abdominal infection: Patient noted to be febrile overnight on 07/05, unclear if secondary to infection versus a possible transfusion reaction. Patient notably did have colitis on CT abdomen pelvis, though this was suspected to be ischemic in nature. COVID, flu, respiratory panel negative. Blood cultures negative on discharge. Patient did have improvement of her hemoglobin and resolution of fevers on IV Zosyn. Transitioned to p.o. ciprofloxacin and Flagyl on discharge with plan for 5-day course total, end date of 07/10. Hypotension: Suspected secondary to acute blood loss anemia and hypovolemia in setting of GI bleed as above. Patient on home amlodipine, lisinopril and Toprol prior to admission. Continued home Toprol, held home lisinopril and amlodipine during admission and blood pressures remained normotensive. We will continue to hold amlodipine and lisinopril on discharge, recheck blood pressure in outpatient setting, restart home medications as needed. History of migraines: Patient reported heavy NSAID use at home, which was suspected to cause her duodenal ulcers. Strongly recommended against patient using NSAIDs for headache management going forward. Also recommended outpatient follow-up with neurology for headache management. Discharge diagnoses: ? Upper GI bleed, resolved ? Acute blood loss anemia, stable ? Suspected intra-abdominal infection with fevers ? Hypotension, improving ? History of migraines with heavy NSAID use ? GERD ? Asthma Total clinical time spent by myself addressing the patient's discharge needs: 38 minutes. Physical Exam Const alert, oriented x3, no apparent distress, average body habitus, healthy appearing and well nourished Constitutional Narrative: Pleasant middle-age female, lying comfortably in bed, sitting in dark room due to headache, conversing normally, no acute distress. General Appearance: cooperative, comfortable, well kempt and well developed HEENT normocephalic, head/scalp atraumatic, hearing grossly normal bilaterally, nasal mucous membranes and turbinates normal and moist oral mucous membranes Eyes PERRL, EOMs intact bilaterally and conjunctivae normal Neck full ROM, no lymphadenopathy and supple Lymph Lymphatic: no lymphadenopathy noted Chest inspection of chest normal Resp normal respiratory effort, normal air movement, no use of accessory muscles and clear to auscultation bilaterally Cardio regular rate, regular rhythm, no murmurs and peripheral pulses 2+ throughout GI normal to inspection, nondistended, normoactive bowel sounds, soft to palpation, non-tender and non-distended Back/Spine normal ROM Extremity normal to inspection, full ROM and no pedal edema Skin no rashes or lesions noted Psych mental status grossly normal Weight / BMI Weight Weight: 89.074 kg Body Mass Index (BMI) 34.7 ABG / Lab / Microbiology Data 07/07/23 03:12 07/07/23 03:12 Laboratory: Laboratory Results - last 24 hr 07/06/23 14:00: Hgb 9.1 L, Hct 29.1 L 07/07/23 03:12: WBC 8.8, RBC 3.21 L, Hgb 9.1 L, Hct 29.3 L, MCV 91.3, MCH 28.3, MCHC 31.1 L, RDW Std Deviation 47.5 H, RDW Coeff of Patrice 14.3, Plt Count 162, MPV 8.5, Immature Gran % (Auto) 0.600, Neut % (Auto) 51.2, Lymph % (Auto) 34.8, Seneca % (Auto) 9.5, Eos % (Auto) 3.2, Baso % (Auto) 0.7, Absolute Neuts (auto) 4.5, Absolute Lymphs (auto) 3.08, Nucleated RBC % 0, Sodium 141, Potassium 3.9, Chloride 112 H, Carbon Dioxide 24.0, Anion Gap 5, BUN 16, Creatinine 1.06 H, Estim Creat Clear Calc 52.52, Est GFR (MDRD) Af Amer 70, Est GFR (MDRD) Non-Af 58 L, BUN/Creatinine Ratio 15.1, Glucose 123 H, Calcium 8.0 L Microbiology: Microbiology 07/06/23 10:37 Mucosa - Nasopharyngeal Respiratory Panel (PCR) - Final Parainfluenza 2 07/06/23 04:45 Nasal Secretion SARS-CoV-2 & FLU Antigen (Rapid) - Final 07/05/23 02:57 Stool Stool Occult Blood (JOSHUA) - Final Occult Blood Positive Radiography Diagnostic Testing: Radiology Impression Brain CT 07/06/23 14:28 IMPRESSION: No acute intracranial abnormality. No hydrocephalus Electronically Signed: Waldo Kapoor MD at 15:13 EDT , D/C Instructions Discharge Diet: No restrictions Weight Bearing Status: Full weight bearing Pending Tests Upon Discharge: None Please Follow Up With: Fred Joseph PA When: 1 to 2 weeks Meaningful Use Info Meaningful Use Diagnoses (Choose all that apply): None applicable Discharge Plan Admission Admit Date/Time: 07/05/23 06:54 Primary Reason for Your Visit: GI bleed Attending Provider: Brent Lr Primary Care Provider: Fred Joseph Consulting Providers: Jerome,Pratima Instructions Additional Instructions / Restrictions: Please take the following medication as prescribed: ? Protonix 40 mg twice daily ? Ciprofloxacin 500 mg twice daily through 07/10 ? Flagyl 375 mg twice daily through 07/10 ? Carafate solution up to 4 times daily as needed Continue all other home medications as prescribed. Please follow-up with your primary care doctor in the next 1 to 2 weeks to have your blood counts rechecked. Please call the neurologist office to schedule an appointment for your chronic headaches as needed. Discharge Orders/Prescriptions Prescriptions: New pantoprazole [Protonix] 40 mg tablet,delayed release (DR/EC) 40 mg PO BID Qty: 60 2RF ciprofloxacin HCl [Cipro] 500 mg tablet 500 mg PO BID Qty: 7 0RF metronidazole [Flagyl] 375 mg capsule 375 mg PO BID Qty: 7 0RF sucralfate [Carafate] 100 mg/mL suspension 10 ml PO BID Qty: 1000 0RF Continued albuterol sulfate 90 mcg/actuation HFA aerosol inhaler 2 inh INHALATION Q6H PRN (Reason: Wheezing) Patient Comments: inhale 2 puffs by mouth and INTO THE LUNGS every 4 hours if needed acetazolamide 125 mg tablet 125 mg PO DAILY metoprolol succinate [Toprol XL] 50 mg tablet extended release 24 hr 50 mg PO DAILY Qty: 90 3RF Discontinued amlodipine 5 mg tablet 5 mg PO DAILY lisinopril 40 mg tablet 40 mg PO DAILY Qty: 90 3RF Referrals / Follow Up: Fred Joseph PA [Primary Care Provider] - Disposition Disposition (needs filled in before D/C Order can be placed): Home, Self Care Charges/Coding Visit Charges Inpatient E&M: 80219 Disch Hosp >30min
[2023-07-07] MEDS: Influenza Virus Vac Quad 23-24 60 MCG/0.5 ML SYRINGE IM (14:42)
[2023-07-07] MEDS: Acetaminophen 325 MG Tablet 650 MG PO (14:48)
--- NOTE | 2023-07-07 15:29 | CASEMGMT ---
RN CM updated that patient has order for discharge. RN CM in to discuss needs at discharge. Patient denies need or help at discharge. Patient had no further questions or concerns.
== END 2023-07-07 15:38 | disposition home or self-care (01) | DRG 378 ==
LOC: ED 05:39 → ICU 07:03
PROVIDERS: Hospitalist; Internal Medicine Gastroenterology; Admitting Provider Internal Medicine; Emergency Provider Emergency Medicine; PCP Physician Assistant; Visit Provider Hospitalist
PROC: 0DJ08ZZ Inspection of Upper Intestinal Tract, Via Natural or Artificial Opening Endoscopic (ICD-10-PCS; CPT 43235; principal; 2023-07-05 13:30)
DX: K26.4 Chronic or unspecified duodenal ulcer with hemorrhage (principal); D62 Acute posthemorrhagic anemia; K55.9 Vascular disorder of intestine, unspecified; I10 Essential (primary) hypertension; J45.909 Unspecified asthma, uncomplicated; E86.1 Hypovolemia; K21.9 Gastro-esophageal reflux disease without esophagitis; K25.4 Chronic or unspecified gastric ulcer with hemorrhage; R55 Syncope and collapse; I49.40 Unspecified premature depolarization; Z86.73 Personal history of transient ischemic attack (TIA), and cerebral infarction without residual deficits; Z86.14 Personal history of Methicillin resistant Staphylococcus aureus infection
CPT/HCPCS: 36415; 70450; 71045; 74174; 80048; 80053; 80076; 81001; 82274; 83605; 83735; 84100; 84484; 85014; 85018; 85025; 85610; 85730; 86850; 86900; 86901; 86920; 87040; 87086; 87428; 87633; 87641; 93005; 94668; 99285; J7030; J7050; J7120; P9016; Q9967; 90686; A4216; J2405; J3490

== ENCOUNTER 2024-02-25 07:34 | Day surgery (SDC) | payer BC, SELFPAY ==
[2024-02-25 08:00] VITALS: BP 163/94; PULSE 70; RESP 16; TEMP 36.1; O2SAT 99; BMI 34.7
[2024-02-25] MEDS: Lactated Ringers 1,000 ML 15 ML IV (08:12)
--- NOTE | 2024-02-25 08:30 | EGD_PTH ---
PATIENT: YOBANY ANGELO LOC: EN U#:[id number] AGE/SX: 49/F ROOM: RE02/25/[address]: Dr. Eros Eason DO : 1975 BED: DIS: 02/25/2024 SPEC #: [id number] RECD: 02/25/24 10:00 STATUS: SRAVAN MARANDA #: [id number] TEJ: 02/25/24 08:[address]: Eros Eason DEPT: SURGICAL PATHOLOGY RECD BY: Lisa Roberson ENTERED: 02/25/24 12:38 SP TYPE: EGD BIOPSY OT DR: PB Yun Tissues: Duodenum, NOS Procedures: Surgery Specimen Level IV HEADER OPERATION: EGD with biopsy PRE-OP DIAGNOSIS: Anemia, gastric ulcer TISSUE SUBMITTED: Duodenum ulcer biopsy MICROSCOPIC DIAGNOSIS Duodenum ulcer, biopsy: Fragments of duodenal mucosa with focal ulceration, fibrinopurulent exudation, acute and chronic inflammation and gastric metaplasia. [facility] 02/26/2024 MICROSCOPIC DESCRIPTION Slides are reviewed. GROSS DESCRIPTION Received in fixative is one container labeled with the patient's name and designated Duodenum ulcer biopsy. The specimen consists of multiple irregular fragments of light nugent soft tissue that in aggregate measure 1.5 x 0.3 x 0.1 cm. The specimen is totally submitted in one cassette. [facility] 02/25/2024 TC:2 CPT:04552
--- NOTE | 2024-02-25 08:52 | PCM.HP.BLA ---
History and Physical Date of Admission: 02/25/24 GI bleed, dizziness Details: YOBANY ANGELO, is a 48 F who presents to the office today for HFU. *[facility] hospitalization 07.05.23-07.07.23 for management of UGIB secondary to duodenal ulcers with anemia, syncope, lightheadedness, hypotension and colitis with diarrhea. ?Stool 07.05.23?occult + CTA 07.05.23?hepatic measurement 19cm; thick walled gastric antrum, pylorus and small bowel with hyperdensity along greater curvature of stomach; moderate stool colon; thick-walled collapsed transverse colon, colitis; spinal changes with hardware. ?EGD 07.05.23?normal esophagus and stomach; two oozing cratered duodenal ulcers, epinephrine/APC; one oozing linear duodenal ulcer, APC. No specimens ? OV 11.04.23- ?Pt reports long hx of stomach ulcers. Has had increase of heartburn and reflux the last couple years. Was feeling well after hospital visit. Has run out of Pantoprazole and Sucralfate and her sx are back. BM are normal and consistent. ? ROS Const Constitutional: No anorexia, fatigue, fever(s), weight change or sleep problems Eyes Eyes: No change in vision ENT ENT: No abnormal hearing, difficulty swallowing, mouth lesions, tongue swelling or throat swelling Resp Respiratory: No cough or shortness of breath Cardio Cardiology: No chest pain at rest, chest pain with exertion, shortness of breath or dyspnea on exertion Gastro GI: No difficulty swallowing Genitourinary-Female: No difficulty urinating or burning urination Musc Musculoskeletal: No joint pain, joint swelling, muscle weakness or decreased muscle mass Skin Skin: No hair loss in leg, yellowing of the eye, itchy eyes, rash, skin ulcer or skin swelling Neuro Neurology: No abnormal hearing, abnormal movements, confusion, unsteady gait/balance or memory loss Psych Psychiatric: No anxiety, No confusion and No memory loss Endo Endocrine: No fatigue or weight change Aller/Imm Allergy/Immunologic: No itchy eyes, throat swelling or tongue swelling Benji/Lymp Hematologic/Lymphatic: No easy bleeding, easy bruising or enlarged lymph nodes Exam Const General: cooperative and comfortable Nutritional Appearance: average body habitus and well nourished [facility] Head: normal to inspection Ears: hearing grossly normal bilaterally Nose: external nose normal Face and sinus: normal facial exam Mouth: oral mucosae normal Throat: posterior oropharynx normal Eyes General: appearance normal, both eyes and all related structures Neck Neck: normal visual inspection Chest Chest palpation & inspection: normal inspection of the chest and normal palpation of entire chest wall Resp Effort & Inspection: normal respiratory effort Auscultation: Bilateral: Clear to Auscultation Cardio Palpation: normal PMI Rate: regular rate Rhythm: regular rhythm GI Inspection: normal to inspection Auscultation: normal bowel sounds Percussion: normal to percussion Palpation: no hepatosplenomegaly Skin General: no rashes or lesions noted Neuro General: patient alert Extrem General: normal to inspection Psych Affect: normal affect Quality Reporting Tobacco Screening ([facility] 138) Smoking Status: Never smoker Assessment and Plan Assessment and Plan (1) Anemia: Status: Acute (2) Gastric ulcer: Status: Acute Plan: 48-year-old who presented to the ED with worsening abdominal pain and was discovered to have large duodenal ulcer causing acute GI bleed drop in her hemoglobin from 12.5 now down to 7.9. She underwent multiple transfusions and underwent an EGD. It was treated endoscopically and she is doing a lot better. She is having little bit of burning and some nausea. We will put her back on pantoprazole and Carafate therapy and schedule her for ulcer surveillance. Medications: New sucralfate (Carafate) 1 g PO BID 60 tabs 2RF Refilled pantoprazole (Protonix) 40 mg PO BID 60 tabs 2RF I have examined the patient and the H&P has been reviewed. There are no clinical changes since date of exam.
--- NOTE | 2024-02-25 09:14 | OP.EGD_ITS ---
Patient Name: Melida Brooks Procedure Date: 02/25/2024 8:59 AM Date of : 1975 Age: 49 Procedure: Upper GI endoscopy Indications: Chronic peptic ulcer Providers: Eros Eason DO Medicines: Monitored Anesthesia Care Patient Profile: This is a 49 year old female. Refer to note in patient chart for documentation of history and physical. Patient has symptoms of chronic epigastric abdominal pain. Complications: No immediate complications. Procedure: Pre-Anesthesia Assessment: - Prior to the procedure, a History and Physical was performed, and patient medications and allergies were reviewed. The patient is competent. The risks and benefits of the procedure and the sedation options and risks were discussed with the patient. All questions were answered and informed consent was obtained. Patient identification and proposed procedure were verified by the physician in the pre-procedure area. Mental Status Examination: alert and oriented. Airway Examination: normal oropharyngeal airway and neck mobility. Respiratory Examination: clear to auscultation. CV Examination: normal. Prophylactic Antibiotics: The patient does not require prophylactic antibiotics. Prior Anticoagulants: The patient has taken no anticoagulant or antiplatelet agents. ASA Grade Assessment: II - A patient with mild systemic disease. After reviewing the risks and benefits, the patient was deemed in satisfactory condition to undergo the procedure. The anesthesia plan was to use monitored anesthesia care (MAC). Immediately prior to administration of medications, the patient was re-assessed for adequacy to receive sedatives. The heart rate, respiratory rate, oxygen saturations, blood pressure, adequacy of pulmonary ventilation, and response to care were monitored throughout the procedure. The physical status of the patient was re-assessed after the procedure. After obtaining informed consent, the endoscope was passed under direct vision. Throughout the procedure, the patient's blood pressure, pulse, and oxygen saturations were monitored continuously. The Endoscope was introduced through the mouth, and advanced to the second part of duodenum. The upper GI endoscopy was accomplished without difficulty. The patient tolerated the procedure well. Scope In: 9:04:53 AM Scope Out: 9:09:04 AM Total Procedure Duration Time 0 hours 4 minutes 11 seconds Findings: The examined esophagus was normal. The entire examined stomach was normal. Two non-bleeding cratered duodenal ulcers with no stigmata of bleeding were found in the duodenal bulb. The largest lesion was 10 mm in largest dimension. Biopsies were taken with a cold forceps for histology. Verification of patient identification for the specimen was done. Estimated blood loss was minimal. Impression: - Normal esophagus. - Normal stomach. - Non-bleeding duodenal ulcers with no stigmata of bleeding. Biopsied. Recommendation: - Discharge patient to home. - Resume previous diet. - Continue present medications. - Await pathology results. - Repeat upper endoscopy in 6 months for surveillance. Procedure Code(s): --- Professional --- 33605, Esophagogastroduodenoscopy, flexible, transoral; with biopsy, single or multiple CPT copyright 2021 [employer]. All rights reserved. The codes documented in this report are preliminary and upon field automobile adjuster review may be revised to meet current compliance requirements. Eros Eason DO 02/25/2024 9:14:45 AM This report has been signed electronically. Number of Addenda: 0 Note Initiated On: 02/25/2024 8:59 AM
[2024-02-25 09:15] VITALS: BP 127/86; BP 163/94; PULSE 82; RESP 18; TEMP 36.4; O2SAT 97
--- NOTE | 2024-02-25 09:15 | OP.CCLET_ITS ---
02/25/2024 Fred Joseph Re : Upper GI endoscopy procedure for Melida Brooks Dear Jake This procedure was performed on Sunday, February 25, 2024. My impressions and recommendations are as follows: Impressions : - Normal esophagus. - Normal stomach. - Non-bleeding duodenal ulcers with no stigmata of bleeding. Biopsied. Recommendations : - Discharge patient to home. - Resume previous diet. - Continue present medications. - Await pathology results. - Repeat upper endoscopy in 6 months for surveillance. My findings are described in the full procedure note, which is enclosed. If I can be of further assistance, please feel free to contact me at . Sincerely, Eros Eason, 02/25/2024 9:14:45 AM This report has been signed electronically.
[2024-02-25 09:20] VITALS: BP 110/81; BP 163/94; PULSE 76; RESP 18; O2SAT 94
[2024-02-25 09:25] VITALS: BP 122/74; BP 163/94; PULSE 75; RESP 18; O2SAT 94
[2024-02-25 09:34] VITALS: BP 114/76; BP 163/94; PULSE 81; RESP 18; TEMP 36.7; O2SAT 96
[2024-02-25 09:44] VITALS: BP 163/94
== END 2024-02-25 09:59 | disposition home or self-care (01) ==
LOC: EN 07:36 → AC 07:37
PROVIDERS: PCP Physician Assistant; Referring Provider Physician Assistant; Visit Provider Internal Medicine Gastroenterology
PROC: 0DJ08ZZ Inspection of Upper Intestinal Tract, Via Natural or Artificial Opening Endoscopic (ICD-10-PCS; CPT 43235; principal; 2024-02-25 08:25)
DX: K26.9 Duodenal ulcer, unspecified as acute or chronic, without hemorrhage or perforation (principal); K25.9 Gastric ulcer, unspecified as acute or chronic, without hemorrhage or perforation; D64.9 Anemia, unspecified
CPT/HCPCS: 43239; 88305; J7120; J2405

== ENCOUNTER 2024-03-07 18:39 | Emergency (ER) | payer BC, SELFPAY ==
[2024-03-07 18:40] VITALS: BP 163/97; PULSE 93; RESP 18; TEMP 36.1; O2SAT 96; BMI 28.3
--- NOTE | 2024-03-07 18:50 | EKG12_ITS ---
Test Reason : DYSRHYTHMIA Blood Pressure : / mmHG Vent. Rate : 086 BPM Atrial Rate : 086 BPM P-R Int : 140 ms QRS Dur : 076 ms QT Int : 372 ms P-R-T Axes : 059 008 031 degrees QTc Int : 445 ms Normal sinus rhythm Inferior infarct , age undetermined Abnormal ECG Confirmed by GILLIAN INGRAM, LORI ([id number]), editor farm journal DWAIN MCCRACKEN ([id number]) on 03/08/2024 10:06:59 AM Referred By: ÓSCAR Confirmed By:LORI FRENCH MD
--- NOTE | 2024-03-07 18:51 | EX.ED.DYSGE1 ---
HPI History of Present Illness Chief Complaint: Syncope Narrative Narrative: 49-year-old female past medical history of hypertension, she has had idiopathic intracranial hypertension as well, and has a shunt. She states that today she began feeling multiple episodes of lightheadedness. While she feels as if she is going to pass out, she has not had a syncopal episode. She denies any chest pain but states she may be a little short of breath. Her best friend is a nurse practitioner who told her to take her blood pressure, and it was elevated in the 180s systolic. She is on multiple medications and has been for years for her high blood pressure. She states admittedly she does not take it regularly. Her main concern is that she feels very lightheaded, and is not necessarily worse when she stands. Even and a supine position she feels lightheaded. [facility] Medical History Post-menopausal Wears glasses Alcohol use Anemia Injury of back Back pain History of GI bleed History of ulceration Cardiology follow-up encounter History of echocardiogram History of stress test Obesity (BMI 30-39.9) Idiopathic intracranial hypertension Migraines Syncope (2006) Seborrheic keratoses History of MRSA infection Asthma GERD (gastroesophageal reflux disease) Essential (primary) hypertension Home Medications ?Medication ?Instructions ?Recorded ?Last Taken ?Type albuterol sulfate 90 mcg/actuation 2 inh inhalation Q6H PRN Wheezing 11/01/20 Unknown History aerosol inhaler metoprolol succinate 50 mg 50 mg PO DAILY #90 tabs 12/03/22 02/25/24 Rx tablet,extended release 24 hr (Toprol XL) acetazolamide 125 mg tablet 125 mg PO DAILY intracranial 07/05/23 02/25/24 History pressure pantoprazole 40 mg tablet,delayed 40 mg PO BID #60 tabs 11/04/23 Unknown Rx release (Protonix) sucralfate 1 gram tablet (Carafate) 1 g PO BID #60 tabs 11/04/23 Unknown Rx amlodipine 5 mg tablet 5 mg PO DAILY 11/17/23 02/25/24 History lisinopril 40 mg tablet 40 mg PO DAILY 11/17/23 02/25/24 History Allergy/AdvReac Type Severity Reaction Status Date / Time apple Allergy Swelling Verified 03/07/24 18:40 shellfish derived AdvReac Swelling Verified 03/07/24 18:40 Sulfa (Sulfonamide AdvReac Chest Verified 03/07/24 18:40 Antibiotics) tightness Family History Mother Hypertension Grandmother Myocardial infarction maternal Grandfather Myocardial infarction maternal Surgical History Hx of brain surgery Hx of left knee surgery Hx of tonsillectomy Hx of esophagogastroduodenoscopy History of History of lumbar spinal fusion Social History household members: family housing: house Smoking Status: Never smoker alcohol intake: current alcohol intake frequency: a few times a month substance use type: does not use ROS ROS ED ROS Narrative Constitutional: No fever, no chills. HEENT: No sore throat. No neck pain. No loss of vision. No rhinorrhea. Cardiovascular: No chest pain. No palpitations. No pedal edema. Respiratory: No cough, mild shortness of breath. Abdominal: No abdominal pain. No nausea. No vomiting. Genitourinary: No dysuria. No hematuria. Musculoskeletal: No myalgias. No arthralgias. Neurologic: No headaches. No dizziness. Positive lightheadedness. Skin: No rash. No change in color. Psychiatric: No depression. No anxiety. EXAM Physical Exam Narrative Exam Narrative: Afebrile. Vital signs noted. HEENT: Normocephalic. Atraumatic. PERRL, EOMI. Neck soft and supple. No point tenderness or step off. Cardiovascular: Regular rate and rhythm. No murmurs, rubs, or gallops appreciated. Respiratory: No tachypnea. Lungs clear to auscultation bilaterally. Gastrointestinal: Abdomen soft, nontender, with normoactive bowel sounds. No rebound or guarding. Neurological: Awake. Alert. Nonfocal, nonlateralizing. Skin: No rash. Normal color. No pallor. Musculoskeletal: No pedal edema. Full range of motion extremities. Const Vital Signs: 03/07/24 18:40 03/07/24 19:05 03/07/24 19:35 Temperature 97 F L Temperature Source Temporal Pulse Rate 93 Pulse Rate [Lying] 79 Pulse Rate [Sitting (for 1 minute prior to obtaining)] 82 Pulse Rate [Standing (for 1 minute prior to obtaining)] 90 Respiratory Rate 18 Respiratory Effort Normal Non-Labored Respiratory Pattern Normal Blood Pressure 163/97 H Blood Pressure [Lying] 135/90 H Blood Pressure [Sitting (for 1 minute prior to obtaining)] 145/94 H Blood Pressure [Standing (for 1 minute prior to obtaining)] 143/107 H Blood Pressure Mean 119 Blood Pressure Mean [Lying] 105 Blood Pressure Mean [Sitting (for 1 minute prior to obtaining)] 111 Blood Pressure Mean [Standing (for 1 minute prior to obtaining)] 119 Pulse Ox 96 Oxygen Delivery Method Room Air 03/07/24 20:39 Temperature Temperature Source Pulse Rate 76 Pulse Rate [Lying] Pulse Rate [Sitting (for 1 minute prior to obtaining)] Pulse Rate [Standing (for 1 minute prior to obtaining)] Respiratory Rate 19 H Respiratory Effort Respiratory Pattern Blood Pressure 146/92 H Blood Pressure [Lying] Blood Pressure [Sitting (for 1 minute prior to obtaining)] Blood Pressure [Standing (for 1 minute prior to obtaining)] Blood Pressure Mean 110 Blood Pressure Mean [Lying] Blood Pressure Mean [Sitting (for 1 minute prior to obtaining)] Blood Pressure Mean [Standing (for 1 minute prior to obtaining)] Pulse Ox 99 Oxygen Delivery Method Room Air MDM MDM MDM Narrative Medical decision making narrative: Patient placed on a teletypesetter monitor. Current blood pressure is 163/97. In the differential diagnosis is intravascular volume depletion versus uncontrolled hypertension versus ACS. I have low suspicion for pulmonary embolism, but D-dimer will be obtained. Will feel she needs a as she states that she is postmenopausal. Orthostatics were obtained and reviewed and were negative. I reviewed her laboratory work and she has normal white count 9.0, hemoglobin normal at 12.9 with hematocrit 39.0. Platelet count normal at 236. D-dimer is normal at 0.49. I feel she has been ruled out for pulmonary embolism. Review of her CMP shows normal sodium of 141 and potassium 3.5, BUN is slightly elevated at 23 with creatinine of 0.82. She will be administered 500 mL bolus of IV fluids. Glucose is appropriately elevated at 132 with a normal anion gap of 9. AST and ALT are normal. Initial high-sensitivity troponin is 36 with repeat at 2 hours being 37. EKG was obtained and interpreted by myself independently as normal sinus rhythm at 86 bpm without ectopy or acute ST changes. No STEMI. Urinalysis is negative for infection with 0-5 WBCs. I do not feel that antibiotics are indicated. Chest x-ray in 1 view interpreted by myself independently shows no evidence of pneumothorax or pneumonia. I reviewed the radiology report which confirms my independent interpretation. After her IV fluid bolus, she feels improved. I do not feel that she requires CT imaging of her brain. She is not showing any clinical signs of shunt malfunction or occlusion. Repeat examination at around 2150 shows her improved and ready for discharge. Initially she had an elevated blood pressure of 163/97. I did order hydralazine, but her blood pressure normalized to the 120s systolic. Given her labile blood pressure, she was told to keep a log of her blood pressures for her primary care provider and follow-up in the next week. Patient may have had intravascular volume depletion as well. Return instructions to the emergency department were reviewed. Disposition is discharged home in stable condition. History & Record Review Discussion w/independent historian: Patient Lab Data Attestation: I reviewed the patient's lab results. Labs: Laboratory Results - last 24 hr 03/07/24 03/07/24 03/07/24 19:07 19:44 21:14 WBC 9.0 RBC 4.44 Hgb 12.9 Hct 39.0 MCV 87.8 MCH 29.1 MCHC 33.1 RDW Std Deviation 42.9 RDW Coeff of Patrice 13.2 Plt Count 236 MPV 8.1 Immature Gran % (Auto) 0.400 Neut % (Auto) 52.2 Lymph % (Auto) 34.1 [place] % (Auto) 10.1 H Eos % (Auto) 2.8 Baso % (Auto) 0.4 Absolute Neuts (auto) 4.7 Absolute Lymphs (auto) 3.08 Nucleated RBC % 0 D-Dimer Quant (PE/DVT) 0.49 Sodium 141 Potassium 3.5 Chloride 107 Carbon Dioxide 25.0 Anion Gap 9 BUN 23 H Creatinine 0.82 Estim Creat Clear Calc 77.46 Est GFR (MDRD) Af Amer 95 Est GFR (MDRD) Non-Af 78 BUN/Creatinine Ratio 28.2 H Glucose 132 H Calcium 8.5 Total Bilirubin 0.30 AST 15 ALT 29 Alkaline Phosphatase 77 Troponin I High Sens 36 37 Total Protein 7.0 Albumin 3.6 Globulin 3.4 Albumin/Globulin Ratio 1.1 Urine Color Yellow Urine Clarity Clear Urine pH 5.0 Ur Specific [place] 1.020 Urine Protein 30 H Urine Glucose (UA) Normal Urine Ketones Negative Urine Occult Blood 150 H Urine Nitrite Negative Urine Bilirubin Negative Urine Urobilinogen Normal Ur Leukocyte Esterase 25 H Urine RBC 5-10 SEEN Urine WBC 0-5 SEEN Ur Squamous Epith Cells 0-5 SEEN Urine Bacteria RARE Urine Mucus 0 SEEN Radiography Chest X-Ray - ED: 1 View, Read by ED Physician and Read by Radiologist Diagnostic Testing: Clinical Impression(s) from Imaging Studies Chest X-Ray 03/07/24 19:00 IMPRESSION: No radiographic evidence of acute cardiopulmonary disease. Electronically Signed: Gerard Alcazar MD at 19:57 EDT , Discharge Plan Triage Chief Complaint: Syncope ED Provider: Prateek Barajas Dx/Rx/DC Orders Clinical Impression: Lightheadedness, Essential (primary) hypertension Instructions: ED High Blood Pressure Hypertension, ED Near-Fainting, Uncertain Cause Prescriptions: No Action albuterol sulfate 90 mcg/actuation HFA aerosol inhaler 2 inh INHALATION Q6H PRN (Reason: Wheezing) Patient Comments: inhale 2 puffs by mouth and INTO THE LUNGS every 4 hours if needed pantoprazole [Protonix] 40 mg tablet,delayed release (DR/EC) 40 mg PO BID Qty: 60 2RF sucralfate [Carafate] 1 gram tablet 1 g PO BID Qty: 60 2RF acetazolamide 125 mg tablet 125 mg PO DAILY lisinopril 40 mg tablet 40 mg PO DAILY amlodipine 5 mg tablet 5 mg PO DAILY metoprolol succinate [Toprol XL] 50 mg tablet extended release 24 hr 50 mg PO DAILY Qty: 90 3RF Primary Care Provider: Fred Joseph Referrals: Fred Joseph PA [Primary Care Provider] - 3-5 Days Activity Restrictions/Additional Instructions: Keep a log of your blood pressures for your primary care provider. Be sure and drink plenty of oral fluids. Return with new or worsening symptoms. Print Language: Georgian Disposition Disposition: Home, Self Care
--- NOTE | 2024-03-07 19:00 | RAD_ITS ---
INDICATION: Shortness of breath EXAMINATION/TECHNIQUE: X-RAY - portable upright AP chest x-ray COMPARISON: 07/06/2023 FINDINGS: LINES/DEVICES: None. LUNGS: No consolidation, edema or effusion. No pneumothorax. MEDIASTINUM AND CARDIOVASCULAR STRUCTURES: Cardiac silhouette not enlarged. Central airways and mediastinal contour are unremarkable. BONES AND SOFT TISSUES: Unremarkable. RAD/Chest 1 View (Portable) IMPRESSION: No radiographic evidence of acute cardiopulmonary disease. Electronically Signed: Gerard Alcazar MD at 19:57 EDT ,
[2024-03-07 19:14] LABS: Absolute Lymphocyte Count 3.08 X10^3/uL (0.83-4.51); Absolute Neutrophil Count 4.7 X10^3/uL (2.0-7.7); Basophil# 0.04 X10^3/uL; Basophil% 0.4 % (0-1); Eosinophil# 0.25 X10^3/uL; Eosinophils% 2.8 % (0-5); Hemoglobin 12.9 g/dL (12.0-15.0); Lymphocyte # 3.08 X10^3/ul (0.83-4.51); Lymphocyte % 34.1 % (19-41); Mean Corp Hgb Conc 33.1 g/dL (32-36); Mean Corpuscular Hgb 29.1 pg (27.0-32.0); Mean Corpuscular Volume 87.8 fL (81-99); Mean Platelet Vol. 8.1 fl (6.2-12.0); Monocyte# 0.91 X10^3/uL; Monocyte% 10.1 % (0-10); NRBC Flagged by Analyzer 0 % (0-5); Neutrophil # 4.72 X10^3/uL (2.7-7.7); Neutrophil % 52.2 % (47-70); Platelet Count 236 K/mm3 (150-450); RBC Distribution Width CV 13.2 % (11.6-14.6); RBC Distribution Width SD 42.9 fl (35.1-43.9); Red Blood Count 4.44 M/mm3 (4.2-5.4)
[2024-03-07 19:25] LABS: D-Dimer Quantitative (DVT/PE) 0.49 FEU/ug/m (0.27-0.49)
[2024-03-07 19:32] LABS: ALB/GLOB Ratio 1.1 RATIO (0.9-2.4); AST(SGOT) 15 U/L (15-37); Alanine Aminotransfer ALT/SGPT 29 U/L (13-56); Albumin, Serum 3.6 g/dL (3.2-5.0); Alkaline Phosphatase 77 U/L (45-117); Anion Gap 9 (5-15); BUN 23 mg/dL (7-18); BUN/Creat Ratio 28.2 RATIO (10-20); Calcium,Total 8.5 mg/dL (8.5-10.1); Chloride 107 mmol/L (98-107); Creatinine, Serum 0.82 mg/dL (0.55-1.02); EST Glomerular Filtration Rate 78 mL/min (>60); Est Glom Filt Rate - Afr Amer 95 mL/min (>60); Estimated Creatinine Clearance 77.46 ml/min; Globulin 3.4 g/dL (2.2-4.2); Glucose 132 mg/dL (74-106); Potassium 3.5 mmol/L (3.5-5.1); Sodium Level 141 mmol/L (136-145); Troponin-I HS (w/2H Reflex) 36 pg/mL (3.0-54.0)
[2024-03-07 19:35] VITALS: BP 135/90; BP 143/107; BP 145/94; PULSE 79; PULSE 82; PULSE 90
[2024-03-07 19:48] LABS: Mucous, Urine 0 SEEN /hpf (<or=2+)
[2024-03-07 19:49] LABS: Color, Urine Yellow (Yellow); Glucose, Dipstick Normal (Normal); Ketone-Dipstick Negative (Negative); Leukocyte Esterase-Dipstick 25 /ul (Negative); Nitrite-Dipstick Negative (Negative); Occult Blood-Urine 150 /ul (Negative); Protein-Dipstick 30 mg/dl (Negative); Urine Bilirubin Dipstick Negative (Negative); Urine Clarity Clear (Clear); Urine Urobilinogen Normal (Normal)
[2024-03-07 19:58] LABS: Bacteria RARE /hpf (None Seen); Red Blood Cells-Urine 5-10 SEEN /hpf (0-5); Squamous Epithelial Cells - UA 0-5 SEEN /hpf (5-10); White Blood Cells 0-5 SEEN /hpf (0-5)
[2024-03-07] MEDS: 0.9% Normal Saline (500mL Bag) 500 ML 999 ML IV (20:32)
[2024-03-07 20:39] VITALS: BP 146/92; PULSE 76; RESP 19; O2SAT 99
[2024-03-07 21:11] LABS: Reflex Troponin-HS? (from REC) Y
[2024-03-07 21:42] LABS: Troponin-I HS 37 pg/mL (3.0-54.0)
[2024-03-07 22:00] VITALS: BP 144/109; PULSE 66; RESP 20; TEMP 36.7; O2SAT 97
== END 2024-03-07 22:20 | disposition home or self-care (01) ==
PROVIDERS: Emergency Provider Emergency Medicine; PCP Physician Assistant; Visit Provider Emergency Medicine
DX: R42 Dizziness and giddiness (principal); R55 Syncope and collapse; I10 Essential (primary) hypertension; J45.909 Unspecified asthma, uncomplicated; K21.9 Gastro-esophageal reflux disease without esophagitis; Z98.1 Arthrodesis status
CPT/HCPCS: 71045; 80053; 81001; 84484; 85025; 85379; 93005; 99284; J7030; A4216

== ENCOUNTER 2024-09-08 10:40 | Day surgery (SDC) | payer BC, SELFPAY ==
--- NOTE | 2024-09-06 13:48 | PAT.ANE_ITS ---
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 When Was Last Pacemaker Check QUESTION #4 FULL TEXT: You/Your Family Experience fever (hyperthermia) with Anesthesia Last Oral Intake Last Oral intake: Last Oral Intake NPO since Meds taken in AM with sips of water? Meds patient instructed to take am of surgery PONV PONV - electrical wiring lineman: PONV - electrical wiring lineman Female Yes 09/06/24 11:26 HX of Motion Sickness Yes 09/06/24 11:26 HX of N/V After Surgery No 09/06/24 11:26 Non-Smoker Yes 09/06/24 11:26 Duration of Surgery greater No 09/06/24 11:26 than 60 minutes Number of Risk Factors 3 09/06/24 11:26 PONV Score Moderate Risk 09/06/24 11:26 Height & Weight Height & Weight: Anesthesia: Height & Weight Height 5 ft 3 in 03/07/24 18:40 Respiratory Assessment Respiratory Assessment - electrical wiring lineman: Respiratory Tract Infection Hx - electrical wiring lineman Hx Respiratory Tract Infection No 09/06/24 11:26 STOP Sleep Apnea STOP Sleep Apnea - electrical wiring lineman: STOP Sleep Apnea - electrical wiring lineman Hx Hypertension Yes: CONTROLLED WITH MED 09/06/24 11:26 Hx Sleep Apnea No 09/06/24 11:26 CPAP BIPAP Do you snore loudly (louder Yes 09/06/24 11:26 than talking or can be heard Do you often feel tired/ No 09/06/24 11:26 fatigued/ sleepy during daytime? Has anyone observed you stop No 09/06/24 11:26 breathing during sleep? STOP Results Positive 09/06/24 11:26 QUESTION #5 FULL TEXT : Do you snore loudly (louder than talking or can be heard through closed doors)? 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 Specify any problems FEVER 09/06/24 11:26 Hx of Preganancy in last 3 No 09/06/24 11:26 Months Nurse Filling Out Transfusion DSCHRIBER 09/06/24 11:26 & Questions: Date: 09/06/24 09/06/24 11:26 Time: 11:09/06/24 11:26 Patient unable to answer at this time (ie. confused, unrespo /Reproduction History /Reproductive History - electrical wiring lineman: /Reproductive Hx- electrical wiring lineman Hx Now No 09/06/24 11:26 Gestational Age (in weeks): EDC: Hx Hx Para Hx Section SAB No 09/06/24 11:26 PFSH Medical History (Updated 03/15/24 @ 00:02 by Background Andreea) Post-menopausal Wears glasses Alcohol use Anemia Injury of back Back pain History of GI bleed History of ulceration Cardiology follow-up encounter History of echocardiogram History of stress test Obesity (BMI 30-39.9) Idiopathic intracranial hypertension Migraines Syncope (2006) Seborrheic keratoses History of MRSA infection Asthma GERD (gastroesophageal reflux disease) Essential (primary) hypertension Home Medications ?Medication ?Instructions ?Recorded ?Last Taken ?Type albuterol sulfate 90 mcg/actuation 2 inh inhalation Q6H PRN Wheezing 11/01/20 Unknown History aerosol inhaler acetazolamide 125 mg tablet 125 mg PO QHS intracranial pressure 07/05/23 02/25/24 History pantoprazole 40 mg tablet,delayed 40 mg PO BID #60 tabs 11/04/23 Unknown Rx release (Protonix) sucralfate 1 gram tablet (Carafate) 1 g PO BID #60 tabs 11/04/23 Unknown Rx amlodipine 5 mg tablet 5 mg PO QHS 11/17/23 02/25/24 History lisinopril 40 mg tablet 40 mg PO QHS 11/17/23 02/25/24 History metoprolol succinate 50 mg 50 mg PO QHS 09/06/24 Unknown History tablet,extended release 24 hr (Toprol XL) rosuvastatin 10 mg tablet 10 mg PO QHS 09/06/24 Unknown History Allergy/AdvReac Type Severity Reaction Status Date / Time apple Allergy Swelling Verified 09/06/24 11:24 shellfish derived AdvReac Swelling Verified 09/06/24 11:24 Sulfa (Sulfonamide AdvReac Chest Verified 09/06/24 11:24 Antibiotics) tightness Family History Mother Hypertension Grandmother Myocardial infarction maternal Grandfather Myocardial infarction maternal Surgical History (Updated 09/06/24 @ 11:31 by Isa Parisi) Hx of brain surgery Hx of left knee surgery Hx of tonsillectomy Hx of esophagogastroduodenoscopy History of History of lumbar spinal fusion Social History household members: family housing: house Smoking Status: Never smoker alcohol intake: current alcohol intake frequency: a few times a month substance use type: does not use Audit: Pertinent Findings Pertinent Findings EKG Perinent findings: nsr, inf infarct 02/06/24 Echo (EF%) pertinent findings: 06/2021 ef 60% Consult pertinent findings: httn, chest pain neg wkup. stable Recommendation Anesthesia Recommendation Anesthesia recommendation: OPTIMIZED for anesthesia
[2024-09-08] VITALS (9 sets, daily range): BP systolic 94–135; BP diastolic 63–89; PULSE 66–95; RESP 16; TEMP 36.1–36.5; O2SAT 96–99; BMI 34.7
--- NOTE | 2024-09-08 10:48 | PCM.PRE.AN2 ---
ASA Classification* ASA Classification ASA Classification: 2 Assessment & Plan Anesthesia* Anesthesia Assessment Anesthesia Assessment: Discussed sedation and/or anesthesia options, risks, benefits, and alternatives with patient/parents/legal guardian/POA. Questions invited. The patient/parents/legal guardian/POA seems to understand and agrees to proceed with anesthesia plan. Reviewed the physical assessment, medical history, allergy history and patient home medications list prior to surgery/procedure/anesthetic and documented any changes. Performed airway and anesthesia risk assessments. Anesthesia Type Anesthesia Type: MAC Anesthesia Focused Assessment* Airway Assessment Mouth opens: >3 cm Mallampati Score: II Focused Labs Anesthesia Preop lab: CBC WBC 9.0 K/mm3 (4.4-11.0) 03/07/24 19:07 RBC 4.44 M/mm3 (4.2-5.4) 03/07/24 19:07 Hgb 12.9 g/dL (12.0-15.0) 03/07/24 19:07 Hct 39.0 % (37-47) 03/07/24 19:07 Plt Count 236 K/mm3 (150-450) 03/07/24 19:07 CHEMISTRY Potassium 3.5 mmol/L (3.5-5.1) 03/07/24 19:07 Sodium 141 mmol/L (136-145) 03/07/24 19:07 Magnesium 2.1 mg/dL (1.6-2.6) 07/06/23 03:42 Phosphorus 3.0 mg/dL (2.5-4.9) 07/06/23 03:42 BUN 23 mg/dL (7-18) H 03/07/24 19:07 Creatinine 0.82 mg/dL (0.55-1.02) 03/07/24 19:07 Glucose 132 mg/dL (74-106) H 03/07/24 19:07 TSH 1.95 uIU/mL (0.358-3.74) 11/01/20 16:14 COAG PT 14.4 SECONDS (11.7-14.9) 07/05/23 03:40 Pre-Assessment Diagnosis/Proposed Procedure Planned Operative Procedure(s): EGD/CSCOPE Anesthesia History 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 When Was Last Pacemaker Check QUESTION #4 FULL TEXT: You/Your Family Experience fever (hyperthermia) with Anesthesia Last Oral Intake Last Oral intake: Last Oral Intake NPO since Meds taken in AM with sips of water? Meds patient instructed to take am of surgery PONV PONV - media relations director: PONV - media relations director Female Yes 09/06/24 11:26 HX of Motion Sickness Yes 09/06/24 11:26 HX of N/V After Surgery No 09/06/24 11:26 Non-Smoker Yes 09/06/24 11:26 Duration of Surgery greater No 09/06/24 11:26 than 60 minutes Number of Risk Factors 3 09/06/24 11:26 PONV Score Moderate Risk 09/06/24 11:26 Height & Weight Height & Weight: Anesthesia: Height & Weight Height 5 ft 3 in 03/07/24 18:40 Respiratory Assessment Respiratory Assessment - media relations director: Respiratory Tract Infection Hx - media relations director Hx Respiratory Tract Infection No 09/06/24 11:26 STOP Sleep Apnea STOP Sleep Apnea - media relations director: STOP Sleep Apnea - media relations director Hx Hypertension Yes: CONTROLLED WITH MED 09/06/24 11:26 Hx Sleep Apnea No 09/06/24 11:26 CPAP BIPAP Do you snore loudly (louder Yes 09/06/24 11:26 than talking or can be heard Do you often feel tired/ No 09/06/24 11:26 fatigued/ sleepy during daytime? Has anyone observed you stop No 09/06/24 11:26 breathing during sleep? STOP Results Positive 09/06/24 11:26 QUESTION #5 FULL TEXT : Do you snore loudly (louder than talking or can be heard through closed doors)? 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 Specify any problems FEVER 09/06/24 11:26 Hx of Preganancy in last 3 No 09/06/24 11:26 Months Nurse Filling Out Transfusion DSCHRIBER 09/06/24 11:26 & Questions: Date: 09/06/24 09/06/24 11:26 Time: 11:28 09/06/24 11:26 Patient unable to answer at this time (ie. confused, unrespo /Reproduction History /Reproductive History - media relations director: /Reproductive Hx- media relations director Hx Now No 09/06/24 11:26 Gestational Age (in weeks): EDC: Hx Hx Para Hx Section SAB No 09/06/24 11:26 PFSH Medical History Post-menopausal Wears glasses Alcohol use Anemia Injury of back Back pain History of GI bleed History of ulceration Cardiology follow-up encounter History of echocardiogram History of stress test Obesity (BMI 30-39.9) Idiopathic intracranial hypertension Migraines Syncope (2006) Seborrheic keratoses History of MRSA infection Asthma GERD (gastroesophageal reflux disease) Essential (primary) hypertension Home Medications ?Medication ?Instructions ?Recorded ?Last Taken ?Type albuterol sulfate 90 mcg/actuation 2 inh inhalation Q6H PRN Wheezing 11/01/20 Unknown History aerosol inhaler acetazolamide 125 mg tablet 125 mg PO QHS intracranial pressure 07/05/23 02/25/24 History pantoprazole 40 mg tablet,delayed 40 mg PO BID #60 tabs 11/04/23 Unknown Rx release (Protonix) sucralfate 1 gram tablet (Carafate) 1 g PO BID #60 tabs 11/04/23 Unknown Rx amlodipine 5 mg tablet 5 mg PO QHS 11/17/23 02/25/24 History lisinopril 40 mg tablet 40 mg PO QHS 11/17/23 02/25/24 History metoprolol succinate 50 mg 50 mg PO QHS 09/06/24 Unknown History tablet,extended release 24 hr (Toprol XL) rosuvastatin 10 mg tablet 10 mg PO QHS 09/06/24 Unknown History Allergy/AdvReac Type Severity Reaction Status Date / Time apple Allergy Swelling Verified 09/06/24 11:24 shellfish derived AdvReac Swelling Verified 09/06/24 11:24 Sulfa (Sulfonamide AdvReac Chest Verified 09/06/24 11:24 Antibiotics) tightness Family History Mother Hypertension Grandmother Myocardial infarction maternal Grandfather Myocardial infarction maternal Surgical History Hx of brain surgery Hx of left knee surgery Hx of tonsillectomy Hx of esophagogastroduodenoscopy History of History of lumbar spinal fusion Social History household members: family housing: house Smoking Status: Never smoker alcohol intake: current alcohol intake frequency: a few times a month substance use type: does not use Review of Systems (Anesthesia) ROS Narrative System reviewed and no additional complaints, except as documented.
--- NOTE | 2024-09-08 11:14 | PCM.HP.STD ---
HPI - General General Date of Admission: 09/08/24 Date of Service: 09/08/24 Chief Complaint: Anemia HPI Narrative YOBANY ANGELO, is a 48 F who presents to the office today for HFU. *[facility] hospitalization 07.05.23-07.07.23 for management of UGIB secondary to duodenal ulcers with anemia, syncope, lightheadedness, hypotension and colitis with diarrhea. ?Stool 07.05.23?occult + CTA 07.05.23?hepatic measurement 19cm; thick walled gastric antrum, pylorus and small bowel with hyperdensity along greater curvature of stomach; moderate stool colon; thick-walled collapsed transverse colon, colitis; spinal changes with hardware. ?EGD 07.05.23?normal esophagus and stomach; two oozing cratered duodenal ulcers, epinephrine/APC; one oozing linear duodenal ulcer, APC. No specimens ? OV 11.04.23- ?Pt reports long hx of stomach ulcers. Has had increase of heartburn and reflux the last couple years. Was feeling well after hospital visit. Has run out of Pantoprazole and Sucralfate and her sx are back. BM are normal and consistent. [facility] Medical History Post-menopausal Wears glasses Alcohol use Anemia Injury of back Back pain History of GI bleed History of ulceration Cardiology follow-up encounter History of echocardiogram History of stress test Obesity (BMI 30-39.9) Idiopathic intracranial hypertension Migraines Syncope (2006) Seborrheic keratoses History of MRSA infection Asthma GERD (gastroesophageal reflux disease) Essential (primary) hypertension Home Medications ?Medication ?Instructions ?Recorded ?Last Taken ?Type albuterol sulfate 90 mcg/actuation 2 inh inhalation Q6H PRN Wheezing 11/01/20 Unknown History aerosol inhaler acetazolamide 125 mg tablet 125 mg PO QHS intracranial pressure 07/05/23 02/25/24 History pantoprazole 40 mg tablet,delayed 40 mg PO BID #60 tabs 11/04/23 Unknown Rx release (Protonix) sucralfate 1 gram tablet (Carafate) 1 g PO BID #60 tabs 11/04/23 Unknown Rx amlodipine 5 mg tablet 5 mg PO QHS 11/17/23 02/25/24 History lisinopril 40 mg tablet 40 mg PO QHS 11/17/23 02/25/24 History metoprolol succinate 50 mg 50 mg PO QHS 09/06/24 09/08/24 History tablet,extended release 24 hr (Toprol XL) rosuvastatin 10 mg tablet 10 mg PO QHS 09/06/24 Unknown History Allergy/AdvReac Type Severity Reaction Status Date / Time apple Allergy Swelling Verified 09/08/24 10:53 shellfish derived AdvReac Swelling Verified 09/08/24 10:53 Sulfa (Sulfonamide AdvReac Chest Verified 09/08/24 10:53 Antibiotics) tightness Family History Mother Hypertension Grandmother Myocardial infarction maternal Grandfather Myocardial infarction maternal Surgical History Hx of brain surgery Hx of left knee surgery Hx of tonsillectomy Hx of esophagogastroduodenoscopy History of History of lumbar spinal fusion Social History household members: family housing: house Smoking Status: Never smoker alcohol intake: current alcohol intake frequency: a few times a month substance use type: does not use ROS Constitutional Constitutional: Reports fatigue and weakness; Denies anorexia, change in weight, chills, fever(s), malaise, night sweats or other Eyes Eyes: Denies blurry vision, change in eye color, change in vision, discharge from eye(s), double vision, erythema, eye pain, loss of vision or other ENT HEENT: Denies abnormal hearing, dysphagia, ear pain, epistaxis, headache(s), hearing loss, nasal congestion, nasal discharge, post nasal drip, sinus pressure, sore throat or other Cardiovascular Cardiovascular: Reports chest pain and syncope; Denies claudication, dyspnea on exertion, edema, lightheadedness, orthopnea, palpitations, paroxysmal nocturnal dyspnea, rapid heart rate or other Respiratory/Chest Respiratory/Chest: Reports shortness of breath at rest; Denies cough, dyspnea, excessive phlegm production, hemoptysis, productive cough, shortness of breath with exertion, wheezing or other Gastrointestinal Gastrointestinal: Reports abdominal pain, coffee ground emesis, diarrhea, hematemesis, nausea and vomiting; Denies constipation, dyspepsia, hematochezia, loose stools, melena or other Genitourinary Genitourinary: Denies burning urination, difficulty urinating, dysuria, hematuria, nocturia, urinary frequency, urinary hesitancy, urinary incontinence, urinary urgency or other Musculoskeletal Musculoskeletal: Reports back pain; Denies arthralgias, joint pain, joint stiffness, joint swelling, myalgias, neck pain or other Neurologic Neurologic: Reports tingling; Denies abnormal gait, abnormal speech, confusion, disequilibrium, dizziness, focal weakness, headache(s), numbness, paresthesias, seizure-like activity, seizures, syncope, tremor(s) or other Psychiatric Psychiatric: Denies anxiety, depression, homicidal ideation, suicidal ideation or other Endocrine Endocrinology: Denies change in body appearance, cold intolerance, excessive sweating, heat intolerance, polydipsia, polyuria or other Hematologic/Lymphatic Hematologic/Lymphatic: Denies anemia, easy bleeding, easy bruising, lymphadenopathy or other Allergic/Immunologic Allergic/Immunologic: Denies rhinitis, hives, eczemia, asthma or other Vital Signs Vital Signs Vital Signs: 09/08/24 10:55 09/08/24 10:55 Temperature 97 F L Temperature Source Temporal Pulse Rate 95 Respiratory Rate 16 Respiratory Pattern Normal Blood Pressure 135/89 H Blood Pressure Mean 104 Blood Pressure Source Monitor Blood Pressure Position Sitting Blood Pressure Location Right Arm Pulse Ox 99 Oxygen Delivery Method Room Air Weight Weight: 196 lb 3.382 oz Body Mass Index (BMI) 34.7 Physical Exam Const alert, oriented x3, no apparent distress and well nourished Constitutional Narrative: Obese, middle-aged, white female, lying in bed, appears ill but nontoxic and not currently appearing uncomfortable General Appearance: cooperative HEENT normocephalic, head/scalp atraumatic, hearing grossly normal bilaterally and moist oral mucous membranes HEENT Narrative: Mallampati 2-3, no thrush Resp normal respiratory effort, no retractions, no use of accessory muscles and clear to auscultation bilaterally Auscultation: Negative for rales, rhonchi or wheezes Cardio regular rate, regular rhythm, S1 normal heart sound, S2 normal heart sound, no murmurs, no rub, no gallops and no clicks GI normal to inspection, nondistended, normoactive bowel sounds, soft to palpation and non-tender Extremity no clubbing, cyanosis or edema Extremity Narrative: 2+ pedal pulses Neuro oriented x3, moves all extremities and no focal motor deficits Speech: speech normal Psych affect normal Psych Narrative: Pleasant, eye contact is good Assessment & Plan Assessment/Plan (1) Upper GI bleeding: (2) Syncope: (3) Acute blood loss anemia: (4) Lightheadedness: (5) Hypotension: QUALIFIERS: Hypotension type: other hypotension type Qualified Code(s): I95.89 - Other hypotension (6) Colitis: (7) Diarrhea: QUALIFIERS: Diarrhea type: unspecified type Qualified Code(s): R19.7 - Diarrhea, unspecified (8) Fever: QUALIFIERS: Encounter type: initial encounter PLAN: Plan Upper GI bleed secondary to duodenal ulcers -CTA of the abdomen pelvis shows mildly thick walled collapsed appearance of the gastric antrum and slightly enhancement of the inferior margin of the stomach at the anterior area -EGD done on 07/05/2023 demonstrated a normal esophagus and stomach but an oozing duodenal ulcer with a visible vessel that was treated with heater probe and APC as well as a oozing duodenal ulcer with pigmented material that was treated with APC -Patient was transfused 1 unit packed red blood cells however hemoglobin has not significantly improved within 24 hours -We will continue Protonix drip for now but intention is transition to Protonix 40 mg p.o. twice daily for 12 weeks -Carafate has also been initiated and she is to continue this with 1 g p.o. 4 times daily for 6 weeks -Will need follow-up EGD in 3 months -If hemoglobin does not stabilize may need repeat endoscopy tomorrow -We will transfuse 1 more unit today Acute blood loss anemia secondary to upper GI bleed -Last hemoglobin per our record was 06/25/2021 and was 12.3 -Hemoglobin on presentation was 8.6 but hemoglobin did drop subsequently to 7.9 and patient was transfused 1 unit packed red blood cells--> hemoglobin improved to 8.7 however today is back down to 7.9--> transfusing 1 more unit of packed red blood cells on 07/06/2023 -Suspected upper GI bleed -repeat endoscopy and colonoscopy if hemoglobin does not stabilize -Repeat hemoglobin after transfusion and again tomorrow morning I have examined the patient and the H&P has been reviewed. There are no clinical changes since date of exam.
--- NOTE | 2024-09-08 11:45 | COLBX_PTH ---
PATIENT: YOBANY ANGELO LOC: EN U#:[id number] AGE/SX: 49/F ROOM: RE09/08/[address]: Dr. Eros Eason DO : 1975 BED: DIS: 09/08/2024 SPEC #: [id number] RECD: 09/08/24 13:14 STATUS: SRAVAN REDanuta #: [id number] TEJ: 09/08/24 11:[address]: Eros Eason DEPT: SURGICAL PATHOLOGY RECD BY: Lisa Roberson ENTERED: 09/08/24 13:34 SP TYPE: COLON BX OTHR DR: Dr. Denton Richards MD Tissues: A - Gastric mucous membrane B - Ileum, NOS Procedures: Surgery Specimen Level IV HEADER OPERATION: Colonoscopy, EGD, biopsy PRE-OP DIAGNOSIS: Upper GI bleeding, syncope, acute blood loss anemia, lightheadedness, hypotension, colitis, diarrhea TISSUE SUBMITTED: A- Gastric ulcer biopsy, B- Terminal ileum biopsy MICROSCOPIC DIAGNOSIS A. Gastric ulcer, biopsy: Consistent with changes of ulcer. Focal intestinal metaplasia. No evidence of dysplasia. See comment. B. Terminal ileum, biopsy: No pathologic change. /mr 09/09/2024 COMMENT A. The results of immunohistochemistry for Helicobacter pylori will be reported separately ([id number]). Eosinophils increased in the mucosa. The significance of this is unclear. Clinical correlation is suggested. MICROSCOPIC DESCRIPTION Slides are reviewed. GROSS DESCRIPTION A. Received in fixative is one container labeled with the patient's name and designated Gastric ulcer biopsy. The specimen consists of multiple irregular fragments of light nugent soft tissue that in aggregate measure 1.0 x 0.4 x 0.1 cm. The specimen is totally submitted in one cassette. B. Received in fixative is one container labeled with the patient's name and designated Terminal ileum biopsy. The specimen consists of two irregular fragments of light nugent soft tissue that in aggregate measure 0.6 x 0.4 x 0.1 cm. The specimen is totally submitted in one cassette. SJ.mr 09/08/2024 TC:3 CPT:14109f0
--- NOTE | 2024-09-08 11:45 | IMM_PTH ---
PATIENT: YOBANY ANGELO LOC: EN U#:[id number] AGE/SX: 49/F ROOM: RE09/08/[address]: Dr. Eros Eason DO : 1975 BED: DIS: 09/08/2024 SPEC #: [id number] RECD: 09/08/24 13:58 STATUS: SRAVAN REQ #: [id number] TEJ: 09/08/24 11:[address]: Eros Eason DEPT: IMMUNOHISTOCHEMISTRY RECD BY: Cedric Hyatt ENTERED: 09/08/24 13:58 SP TYPE: IMMUNO OTHR DR: Dr. Denton Richards MD Tissues: A - Gastric mucous membrane Procedures: H Pylori (initial) KI-67 (add) P53 (add) PHYSICIAN & INSTITUTION [place] [id number] SPECIMEN INFORMATION: Tissue Source: A- Gastric ulcer biopsy Clinical Info: Upper GI bleeding, syncope, acute blood loss anemia, lightheadedness, hypotension, colitis, diarrhea Specimen Number: [id number] CPT code: 25853,95400p7 METHODOLOGY: Deparaffinized sections of prefer/formalin-fixed tissue or PAP/DQ stained slides are incubated with monoclonal/polyclonal antibodies/oligonucleotide probes. Localization is made via biotin free immunoperoxidase method. Appropriate controls are performed and reacted as expected. Results on target cell population are indicated in the following table: RESULTS: ANTIBODY / CLONE RESULT Block A H Pylori (polyclonal) negative P53 (DO-7) negative Ki-67 (30-9) positive, low These tests were developed and their performance characteristics determined by [facility]. They may not have been cleared or approved by the U.S. Food and Drug Administration. The FDA has determined that such clearance or approval is not necessary. The above immunohistochemical/dualISH markers are ordered and reviewed by the Pathologist. INTERPRETATION: A. Gastric ulcer, biopsy: Negative for Helicobacter pylori organisms. No evidence of dysplasia. AM. 09/10/2024
--- NOTE | 2024-09-08 11:53 | PCM.POST.ANE ---
Anesthesia: Postop Eval I Current Vital Signs Temperature: 97.7 F Pulse Rate: 87 Blood Pressure: 120/77 Respiratory Rate: 16 Pulse Ox: 96 Oxygen Delivery Method: Room Air Assessment Airway patent: Yes Spontaneous unlabored respirations: Yes Mental status: Asleep nausea: No Vomiting: No Anesthesia Complication: No Fluid Hydration Crystalloid volume administer (ml): 60 Total IV fluid infused: 60 Progress Note Anesthesia document: Postop Eval 1 completed: Yes
--- NOTE | 2024-09-08 11:54 | OP.EGD_ITS ---
Patient Name: Melida Brooks Procedure Date: 09/08/2024 11:13 AM Date of : 1975 Age: 49 Procedure: Upper GI endoscopy Indications: Iron deficiency anemia, Recent gastrointestinal bleeding, Peptic ulcer Providers: Eros Eason DO Medicines: Monitored Anesthesia Care Patient Profile: This is a 49 year old female. Refer to note in patient chart for documentation of history and physical. Patient has symptoms of chronic epigastric abdominal pain. Her most recent EGD for ulcer treatment was within the past three months. Complications: No immediate complications. Procedure: Pre-Anesthesia Assessment: - Prior to the procedure, a History and Physical was performed, and patient medications and allergies were reviewed. The patient is competent. The risks and benefits of the procedure and the sedation options and risks were discussed with the patient. All questions were answered and informed consent was obtained. Patient identification and proposed procedure were verified by the physician in the pre-procedure area. Mental Status Examination: alert and oriented. Airway Examination: normal oropharyngeal airway and neck mobility. Respiratory Examination: clear to auscultation. CV Examination: normal. Prophylactic Antibiotics: The patient does not require prophylactic antibiotics. Prior Anticoagulants: The patient has taken no anticoagulant or antiplatelet agents except for NSAID medication. ASA Grade Assessment: II - A patient with mild systemic disease. After reviewing the risks and benefits, the patient was deemed in satisfactory condition to undergo the procedure. The anesthesia plan was to use monitored anesthesia care (MAC). Immediately prior to administration of medications, the patient was re-assessed for adequacy to receive sedatives. The heart rate, respiratory rate, oxygen saturations, blood pressure, adequacy of pulmonary ventilation, and response to care were monitored throughout the procedure. The physical status of the patient was re-assessed after the procedure. After obtaining informed consent, the endoscope was passed under direct vision. Throughout the procedure, the patient's blood pressure, pulse, and oxygen saturations were monitored continuously. The Colonoscope was introduced through the mouth, and advanced to the second part of duodenum. The upper GI endoscopy was accomplished without difficulty. The patient tolerated the procedure well. Scope In: 11:25:35 AM Scope Out: 11:30:28 AM Total Procedure Duration Time 0 hours 4 minutes 53 seconds Findings: The examined esophagus was normal. One non-bleeding cratered gastric ulcer with no stigmata of bleeding was found in the gastric antrum. The lesion was 10 mm in largest dimension. Biopsies were taken with a cold forceps for histology. Verification of patient identification for the specimen was done. Estimated blood loss was minimal. The second portion of the duodenum was normal. Impression: - Normal esophagus. - Non-bleeding gastric ulcer with no stigmata of bleeding. Biopsied. - Normal second portion of the duodenum. Recommendation: - Discharge patient to home. - Resume previous diet. - Continue present medications. - Await pathology results. - Repeat upper endoscopy in 4 months to check healing. Procedure Code(s): --- Professional --- 11890, Esophagogastroduodenoscopy, flexible, transoral; with biopsy, single or multiple CPT copyright 2021 [employer]. All rights reserved. The codes documented in this report are preliminary and upon flight technician review may be revised to meet current compliance requirements. Eros Eason DO 09/08/2024 11:53:56 AM This report has been signed electronically. Number of Addenda: 0 Note Initiated On: 09/08/2024 11:13 AM
--- NOTE | 2024-09-08 11:54 | OP.CCLET_ITS ---
09/08/2024 Fred Joseph Re : Upper GI endoscopy procedure for Melida Brooks Dear Jake This procedure was performed on Sunday, September 08, 2024. My impressions and recommendations are as follows: Impressions : - Normal esophagus. - Non-bleeding gastric ulcer with no stigmata of bleeding. Biopsied. - Normal second portion of the duodenum. Recommendations : - Discharge patient to home. - Resume previous diet. - Continue present medications. - Await pathology results. - Repeat upper endoscopy in 4 months to check healing. My findings are described in the full procedure note, which is enclosed. If I can be of further assistance, please feel free to contact me at . Sincerely, Eros Eason, 09/08/2024 11:53:56 AM This report has been signed electronically.
--- NOTE | 2024-09-08 11:57 | OP.COLON_ITS ---
Patient Name: Melida Brooks Procedure Date: 09/08/2024 11:30 AM Date of : 1975 Age: 49 Procedure: Colonoscopy Indications: Screening for colorectal malignant neoplasm Providers: Eros Eason DO Medicines: Monitored Anesthesia Care Patient Profile: This is a 49 year old female. Refer to note in patient chart for documentation of history and physical. Patient has symptoms of chronic epigastric abdominal pain. Her most recent EGD for ulcer treatment was within the past three months. Last Colonoscopy: none. The patient's first colonoscopy is today. Complications: No immediate complications. Procedure: Pre-Anesthesia Assessment: - Prior to the procedure, a History and Physical was performed, and patient medications and allergies were reviewed. The patient is competent. The risks and benefits of the procedure and the sedation options and risks were discussed with the patient. All questions were answered and informed consent was obtained. Patient identification and proposed procedure were verified by the physician in the pre-procedure area. Mental Status Examination: alert and oriented. Airway Examination: normal oropharyngeal airway and neck mobility. Respiratory Examination: clear to auscultation. CV Examination: normal. Prophylactic Antibiotics: The patient does not require prophylactic antibiotics. Prior Anticoagulants: The patient has taken no anticoagulant or antiplatelet agents except for NSAID medication. ASA Grade Assessment: II - A patient with mild systemic disease. After reviewing the risks and benefits, the patient was deemed in satisfactory condition to undergo the procedure. The anesthesia plan was to use monitored anesthesia care (MAC). Immediately prior to administration of medications, the patient was re-assessed for adequacy to receive sedatives. The heart rate, respiratory rate, oxygen saturations, blood pressure, adequacy of pulmonary ventilation, and response to care were monitored throughout the procedure. The physical status of the patient was re-assessed after the procedure. After I obtained informed consent, the scope was passed under direct vision. Throughout the procedure, the patient's blood pressure, pulse, and oxygen saturations were monitored continuously. The Colonoscope was introduced through the anus and advanced to the terminal ileum. The colonoscopy was performed without difficulty. The patient tolerated the procedure well. The quality of the bowel preparation was adequate. The terminal ileum, ileocecal valve, appendiceal orifice, and rectum were photographed. Scope In: 11:32:38 AM Scope Withdrawal Time 0 hours 7 minutes 41 seconds Scope Out: 11:44:33 AM Total Procedure Duration Time 0 hours 11 minutes 55 seconds Findings: The perianal and digital rectal examinations were normal. A few small-mouthed diverticula were found in the sigmoid colon. The colon (entire examined portion) appeared normal. Patchy mild inflammation characterized by erosions and erythema was found in the terminal ileum. Biopsies were taken with a cold forceps for histology. Verification of patient identification for the specimen was done. Estimated blood loss was minimal. Impression: - Diverticulosis in the sigmoid colon. - The entire examined colon is normal. - Mild inflammation was found in the ileum secondary to ileitis. Biopsied. Recommendation: - Discharge patient to home. - Resume previous diet. - Continue present medications. - Await pathology results. - Repeat colonoscopy in 10 years for screening purposes. Procedure Code(s): --- Professional --- 17056, Colonoscopy, flexible; with biopsy, single or multiple CPT copyright 2021 [employer]. All rights reserved. The codes documented in this report are preliminary and upon furnace charger review may be revised to meet current compliance requirements. rEos Eason DO 09/08/2024 11:57:03 AM This report has been signed electronically. Number of Addenda: 0 Note Initiated On: 09/08/2024 11:30 AM
--- NOTE | 2024-09-08 11:57 | OP.CCLET_ITS ---
09/08/2024 Fred Joseph Re : Colonoscopy procedure for Melida Brooks Dear Jake This procedure was performed on Sunday, September 08, 2024. My impressions and recommendations are as follows: Impressions : - Diverticulosis in the sigmoid colon. - The entire examined colon is normal. - Mild inflammation was found in the ileum secondary to ileitis. Biopsied. Recommendations : - Discharge patient to home. - Resume previous diet. - Continue present medications. - Await pathology results. - Repeat colonoscopy in 10 years for screening purposes. My findings are described in the full procedure note, which is enclosed. If I can be of further assistance, please feel free to contact me at . Sincerely, Eros Eason, 09/08/2024 11:57:03 AM This report has been signed electronically.
--- NOTE | 2024-09-08 12:34 | PCM.POSTANE2 ---
Anesthesia Postop Eval I Sum Postop Eval Completion status Anesthesia document: Postop Eval 1 completed: Yes Anesthesia Postop Eval I Summary Anesthesia Postop Eval I Summary: Anesthesia Postop Eval I: Assessment Summary Airway patent Yes 09/08/24 11:54 [email or web address] Spontaneous unlabored Yes 09/08/24 11:54 [email or web address] respirations Mental status Asleep 09/08/24 11:54 [email or web address] nausea No 09/08/24 11:54 [email or web address] Vomiting No 09/08/24 11:54 [email or web address] Anesthesia Postop Eval I: Fluid Summary Crystalloid volume administer 60 09/08/24 11:54 [email or web address] (ml) Colloids volume administered ( ml) Blood Product volume administered (ml) Total IV fluid infused 60 09/08/24 11:54 [email or web address] Anesthesia Postop Eval I: Summary Notes Anesthesia Complication No 09/08/24 11:54 [email or web address] Anesthesia Complication Comment: Post-operative progress note Anesthesia: Postop Eval II Evaluation Mental status: Awake Pain Level: 0 nausea: No Vomiting: No
== END 2024-09-08 12:47 | disposition home or self-care (01) ==
LOC: EN 10:41 → AC 10:44
PROVIDERS: PCP Family Medicine; Referring Provider Family Medicine; Visit Provider Internal Medicine Gastroenterology
PROC: 0DJD8ZZ Inspection of Lower Intestinal Tract, Via Natural or Artificial Opening Endoscopic (ICD-10-PCS; CPT 45378; principal; 2024-09-08 11:40)
DX: Z12.11 Encounter for screening for malignant neoplasm of colon (principal); D62 Acute posthemorrhagic anemia; D50.9 Iron deficiency anemia, unspecified; I10 Essential (primary) hypertension; K57.30 Diverticulosis of large intestine without perforation or abscess without bleeding; K21.9 Gastro-esophageal reflux disease without esophagitis; K52.9 Noninfective gastroenteritis and colitis, unspecified; K25.9 Gastric ulcer, unspecified as acute or chronic, without hemorrhage or perforation; K31.A19 Gastric intestinal metaplasia without dysplasia, unspecified site; Z79.899 Other long term (current) drug therapy; J45.909 Unspecified asthma, uncomplicated
CPT/HCPCS: 45380; 43239; 88305; 88341; 88342; A4216; J2405

== ENCOUNTER 2024-12-22 10:38 | Day surgery (SDC) | payer BC, SELFPAY ==
--- NOTE | 2024-12-16 13:38 | PAT.ANE_ITS ---
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 When Was Last Pacemaker Check QUESTION #4 FULL TEXT: You/Your Family Experience fever (hyperthermia) with Anesthesia Last Oral Intake Last Oral intake: Last Oral Intake NPO since Meds taken in AM with sips of water? 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 buttonhole machine operator: PONV - piped buttonhole machine operator Female Yes 12/16/24 11:02 HX of Motion Sickness No 12/16/24 11:02 HX of N/V After Surgery No 12/16/24 11:02 Non-Smoker Yes 12/16/24 11:02 Duration of Surgery greater No 12/16/24 11:02 than 60 minutes Number of Risk Factors 2 12/16/24 11:02 PONV Score Moderate Risk 12/16/24 11:02 Height & Weight Height & Weight: Anesthesia: Height & Weight Height 5 ft 3 in 09/08/24 10:55 Respiratory Assessment Respiratory Assessment - piped buttonhole machine operator: Respiratory Tract Infection Hx - piped buttonhole machine operator Hx Respiratory Tract Infection No 12/16/24 11:02 STOP Sleep Apnea STOP Sleep Apnea - piped buttonhole machine operator: STOP Sleep Apnea - piped buttonhole machine operator Hx Hypertension Yes: CONTROLLED WITH MED 12/16/24 11:02 Hx Sleep Apnea No 12/16/24 11:02 CPAP BIPAP Do you snore loudly (louder No 12/16/24 11:02 than talking or can be heard Do you often feel tired/ No 12/16/24 11:02 fatigued/ sleepy during daytime? Has anyone observed you stop No 12/16/24 11:02 breathing during sleep? STOP Results Negative 12/16/24 11:02 QUESTION #5 FULL TEXT : Do you snore loudly (louder than talking or can be heard through closed doors)? 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 Specify any problems FEVERS 12/16/24 11:02 Hx of Preganancy in last 3 No 12/16/24 11:02 Months Nurse Filling Out Transfusion [facility] 12/16/24 11:02 & Questions: Date: 12/16/24 12/16/24 11:02 Time: 11:04 12/16/24 11:02 Patient unable to answer at this time (ie. confused, unrespo /Reproduction History /Reproductive History - piped buttonhole machine operator: /Reproductive Hx- piped buttonhole machine operator Hx Now No 12/16/24 11:02 Gestational Age (in weeks): EDC: Hx Hx Para Hx Section SAB No 12/16/24 11:02 PFSH Medical History Post-menopausal Wears glasses Alcohol use Anemia Injury of back Back pain History of GI bleed History of ulceration Cardiology follow-up encounter History of echocardiogram History of stress test Obesity (BMI 30-39.9) Idiopathic intracranial hypertension Migraines Syncope (2006) Seborrheic keratoses History of MRSA infection Asthma GERD (gastroesophageal reflux disease) Essential (primary) hypertension Home Medications ?Medication ?Instructions ?Recorded ?Last Taken ?Type albuterol sulfate 90 mcg/actuation 2 inh inhalation Q6 H PRN Wheezing 11/01/20 Unknown History aerosol inhaler acetazolamide 125 mg tablet 125 mg PO QHS intracranial pressure 07/05/23 02/25/24 History amlodipine 5 mg tablet 5 mg PO QHS 11/17/2305 4 History lisinopril 40 mg tablet 40 mg PO QHS 11/17/23 History metoprolol succinate 50 mg 50 mg PO QHS 09/06/2409/08 History tablet,extended release 24 hr (Toprol XL) rosuvastatin 10 mg tablet 10 mg PO QHS 09/06/24 Unknow n History pantoprazole 40 mg tablet,delayed 40 mg PO BID #60 tab s 09/21/24 Unknown Rx release (Protonix) sucralfate 1 gram tablet (Carafate) 1 g PO TID #90 tab s 09/21/24 Unknown Rx Allergy/AdvReac Type Severity Reaction Status Date / Time apple Allergy Swelling Verified 12/16/24 11:01 shellfish derived AdvReac Swelling Verified 12/16/24 11:01 Sulfa (Sulfonamide AdvReac Chest Verified 12/16/24 11:01 Antibiotics) tightness Family History Mother Hypertension Grandmother Myocardial infarction maternal Grandfather Myocardial infarction maternal Surgical History Hx of brain surgery Hx of left knee surgery Hx of tonsillectomy Hx of esophagogastroduodenoscopy History of History of lumbar spinal fusion Social History household members: family housing: house Smoking Status: Never smoker alcohol intake: current alcohol intake frequency: a few times a month substance use type: does not use Audit: Pertinent Findings Pertinent Findings EKG Perinent findings: March 07, 2024. Normal sinus rhythm. Inferior infarct, age undetermined. Stress test pertinent findings: November 23, 2020. Ejection fraction of 55%. No evidence of ischemia at a high workload. 10.1 METS. Echo (EF%) pertinent findings: June 25, 2021. Ejection fraction 60%. PA systolic pressure is 26 mmHg. No aortic stenosis noted. Consult pertinent findings: November 01, 2020. Dr. Ordaz. 1. Hypertension?controlled. Plan to decrease beta-justice, continue amlodipine, and add lisinopril. Hopefully this should alleviate some of her fatigue. 2. Chest pain-this is atypical. Check stress and echo (see above) Recommendation Anesthesia Recommendation Anesthesia recommendation: OPTIMIZED for anesthesia
[2024-12-22] VITALS (9 sets, daily range): BP systolic 84–144; BP diastolic 52–85; PULSE 67–94; RESP 16; TEMP 36.2–36.5; O2SAT 92–98; BMI 32.4
--- NOTE | 2024-12-22 11:36 | PCM.HP.STD ---
HPI - General General Date of Admission: 12/22/24 Date of Service: 12/22/24 Chief Complaint: Gastric ulcer HPI Narrative YOBANY ANGELO, is a 49 F who presents for surveillance of gastric ulcer due to worsening abdominal pain. She underwent an upper and lower endoscopy approximately 4 months ago and was discovered to have a large gastric ulcer that was positive for intestinal metaplasia. She comes in today for surveillance of her gastric ulcer. [facility] Medical History Post-menopausal Wears glasses Alcohol use Anemia Injury of back Back pain History of GI bleed History of ulceration Cardiology follow-up encounter History of echocardiogram History of stress test Obesity (BMI 30-39.9) Idiopathic intracranial hypertension Migraines Syncope (2006) Seborrheic keratoses History of MRSA infection Asthma GERD (gastroesophageal reflux disease) Essential (primary) hypertension Home Medications ?Medication ?Instructions ?Recorded ?Last Taken ?Type albuterol sulfate 90 mcg/actuation 2 inh inhalation Q6H PRN Wheezing 11/01/20 Unknown History aerosol inhaler acetazolamide 125 mg tablet 125 mg PO QHS intracranial pressure 07/05/23 02/25/24 History amlodipine 5 mg tablet 5 mg PO QHS 11/17/23 02/25/24 History lisinopril 40 mg tablet 40 mg PO QHS 11/17/23 02/25/24 History metoprolol succinate 50 mg 50 mg PO QHS 09/06/24 12/22/24 History tablet,extended release 24 hr (Toprol XL) rosuvastatin 10 mg tablet 10 mg PO QHS 09/06/24 Unknown History pantoprazole 40 mg tablet,delayed 40 mg PO BID #60 tabs 09/21/24 12/22/24 Rx release (Protonix) sucralfate 1 gram tablet (Carafate) 1 g PO TID #90 tabs 09/21/24 Unknown Rx Allergy/AdvReac Type Severity Reaction Status Date / Time apple Allergy Swelling Verified 12/22/24 11:11 shellfish derived AdvReac Swelling Verified 12/22/24 11:11 Sulfa (Sulfonamide AdvReac Chest Verified 12/22/24 11:11 Antibiotics) tightness Family History Mother Hypertension Grandmother Myocardial infarction maternal Grandfather Myocardial infarction maternal Surgical History Hx of brain surgery Hx of left knee surgery Hx of tonsillectomy Hx of esophagogastroduodenoscopy History of History of lumbar spinal fusion Social History household members: family housing: house Smoking Status: Never smoker alcohol intake: current alcohol intake frequency: a few times a month substance use type: does not use ROS Constitutional Constitutional: Denies fatigue, fever(s), poor appetite, weight gain or weight loss Gastrointestinal Gastrointestinal: Denies belching, bloating, change in bowel habits, change in stool character, chewing difficulty, coffee ground emesis, constipation, cramping, diarrhea, dyspepsia, dysphagia, early satiety, excessive flatus, fecal incontinence, heartburn, hematemesis, hematochezia, hemorrhoids, loose stools, melena, nausea, odynophagia, rectal bleeding, tenesmus, vomiting or weight changes Vital Signs Vital Signs Vital Signs: 12/22/24 11:13 12/22/24 11:13 Temperature 97.1 F L Temperature Source Temporal Pulse Rate 67 Respiratory Rate 16 Respiratory Pattern Normal Blood Pressure 144/85 H Blood Pressure Mean 104 Blood Pressure Source Monitor Blood Pressure Position Semi-Fowlers Blood Pressure Location Right Arm Pulse Ox 98 Oxygen Delivery Method Room Air Weight Weight: 182 lb 15.739 oz Body Mass Index (BMI) 32.4 Physical Exam Const alert, oriented x3, no apparent distress and healthy appearing General Appearance: cooperative GI normal to inspection, nondistended, normoactive bowel sounds, soft to palpation, non-tender and non-distended Percussion: normal to percussion Rectal Exam: deferred Assessment & Plan Assessment/Plan (1) Gastric ulcer: PLAN: Patient will undergo an upper endoscopy to evaluate the healing of her gastric ulcer that contained intestinal metaplasia. She was explained alternatives, risk and benefits include not withstanding bleeding, infection, subsequent perforation, need for more surgery . She have an ASA of 3.
--- NOTE | 2024-12-22 11:42 | PCM.PRE.AN2 ---
ASA Classification* ASA Classification ASA Classification: 2 Assessment & Plan Anesthesia* Anesthesia Assessment Anesthesia Assessment: Discussed sedation and/or anesthesia options, risks, benefits, and alternatives with patient/parents/legal guardian/POA. Questions invited. The patient/parents/legal guardian/POA seems to understand and agrees to proceed with anesthesia plan. Reviewed the physical assessment, medical history, allergy history and patient home medications list prior to surgery/procedure/anesthetic and documented any changes. Performed airway and anesthesia risk assessments. Anesthesia Type Anesthesia Type: MAC Anesthesia Focused Assessment* Temperature: 97.1 F Pulse Rate: 67 Blood Pressure: 144/85 Respiratory Rate: 16 Pulse Ox: 98 Airway Assessment Mouth opens: >3 cm Mallampati Score: II Focused Labs Anesthesia Preop lab: CBC WBC 9.0 K/mm3 (4.4-11.0) 03/07/24 19:07 03/07/24 RBC 4.44 M/mm3 (4.2-5.4) 03/07/24 19:07 03/07/24 Hgb 12.9 g/dL (12.0-15.0) 03/07/24 19:07 03/07/24 Hct 39.0 % (37-47) 03/07/24 19:07 03/07/24 Plt Count 236 K/mm3 (150-450) 03/07/24 19:07 03/07/24 CHEMISTRY Potassium 3.5 mmol/L (3.5-5.1) 03/07/24 19:07 03/07/24 Sodium 141 mmol/L (136-145) 03/07/24 19:07 03/07/24 Magnesium 2.1 mg/dL (1.6-2.6) 07/06/23 03:42 07/06/23 Phosphorus 3.0 mg/dL (2.5-4.9) 07/06/23 03:42 07/06/23 BUN 23 mg/dL (7-18) H 03/07/24 19:07 03/07/24 Creatinine 0.82 mg/dL (0.55-1.02) 03/07/24 19:07 03/07/24 Glucose 132 mg/dL (74-106) H 03/07/24 19:07 03/07/24 TSH 1.95 uIU/mL (0.358-3.74) 11/01/20 16:14 11/01/20 COAG PT 14.4 SECONDS (11.7-14.9) 07/05/23 03:40 07/05/23 Pre-Assessment Diagnosis/Proposed Procedure Planned Operative Procedure(s): EGD Anesthesia History Anesthesia History - validation consultant: Anesthesia History - validation consultant Hx Hospitalization No 12/16/24 11:02 Any Problems With Anesthesia No 12/16/24 11:02 Cholinesterase deficiency No 12/16/24 11:02 You/Your Family Experience No 12/16/24 11:02 fever (hyperthermia) with Relationship Recent Exposure to Contagious No 12/22/24 11:13 Disease Does patient have nerve No 12/16/24 11:02 stimulator Patient instructed to have device shut off --Does patient have Pacemaker No 12/22/24 11:13 or ICD? When Was Last Pacemaker Check QUESTION #4 FULL TEXT: You/Your Family Experience fever (hyperthermia) with Anesthesia Last Oral Intake Last Oral intake: Last Oral Intake NPO since 21:30 12/22/24 11:13 Meds taken in AM with sips of Yes 12/22/24 11:13 water? Meds patient instructed to take am of surgery PONV PONV - validation consultant: PONV - validation consultant Female Yes 12/16/24 11:02 HX of Motion Sickness No 12/16/24 11:02 HX of N/V After Surgery No 12/16/24 11:02 Non-Smoker Yes 12/16/24 11:02 Duration of Surgery greater No 12/16/24 11:02 than 60 minutes Number of Risk Factors 2 12/16/24 11:02 PONV Score Moderate Risk 12/16/24 11:02 Height & Weight Height & Weight: Anesthesia: Height & Weight Height 5 ft 3 in 12/22/24 11:13 Weight: 83 kg 12/22/24 11:13 Body Mass Index (BMI) 32.4 12/22/24 11:13 Respiratory Assessment Respiratory Assessment - validation consultant: Respiratory Tract Infection Hx - validation consultant Hx Respiratory Tract Infection No 12/16/24 11:02 STOP Sleep Apnea STOP Sleep Apnea - validation consultant: STOP Sleep Apnea - validation consultant Hx Hypertension Yes: CONTROLLED WITH MED 12/16/24 11:02 Hx Sleep Apnea No 12/16/24 11:02 CPAP BIPAP Do you snore loudly (louder No 12/16/24 11:02 than talking or can be heard Do you often feel tired/ No 12/16/24 11:02 fatigued/ sleepy during daytime? Has anyone observed you stop No 12/16/24 11:02 breathing during sleep? STOP Results Negative 12/16/24 11:02 QUESTION #5 FULL TEXT : Do you snore loudly (louder than talking or can be heard through closed doors)? 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 Specify any problems FEVERS 12/16/24 11:02 Hx of Preganancy in last 3 No 12/16/24 11:02 Months Nurse Filling Out Transfusion [facility] 12/16/24 11:02 & Questions: Date: 12/16/24 12/16/24 11:02 Time: 11:04 12/16/24 11:02 Patient unable to answer at this time (ie. confused, unrespo /Reproduction History /Reproductive History - validation consultant: /Reproductive Hx- validation consultant Hx Now No 12/16/24 11:02 Gestational Age (in weeks): EDC: Hx Hx Para Hx Section SAB No 12/16/24 11:02 PFSH Medical History Post-menopausal Wears glasses Alcohol use Anemia Injury of back Back pain History of GI bleed History of ulceration Cardiology follow-up encounter History of echocardiogram History of stress test Obesity (BMI 30-39.9) Idiopathic intracranial hypertension Migraines Syncope (2006) Seborrheic keratoses History of MRSA infection Asthma GERD (gastroesophageal reflux disease) Essential (primary) hypertension Home Medications ?Medication ?Instructions ?Recorded ?Last Taken ?Type albuterol sulfate 90 mcg/actuation 2 inh inhalation Q6H PRN Wheezing 11/01/20 Unknown History aerosol inhaler acetazolamide 125 mg tablet 125 mg PO QHS intracranial pressure 07/05/23 02/25/24 History amlodipine 5 mg tablet 5 mg PO QHS 11/17/23 02/25/24 History lisinopril 40 mg tablet 40 mg PO QHS 11/17/23 02/25/24 History metoprolol succinate 50 mg 50 mg PO QHS 09/06/24 12/22/24 History tablet,extended release 24 hr (Toprol XL) rosuvastatin 10 mg tablet 10 mg PO QHS 09/06/24 Unknown History pantoprazole 40 mg tablet,delayed 40 mg PO BID #60 tabs 09/21/24 12/22/24 Rx release (Protonix) sucralfate 1 gram tablet (Carafate) 1 g PO TID #90 tabs 09/21/24 Unknown Rx Allergy/AdvReac Type Severity Reaction Status Date / Time apple Allergy Swelling Verified 12/22/24 11:11 shellfish derived AdvReac Swelling Verified 12/22/24 11:11 Sulfa (Sulfonamide AdvReac Chest Verified 12/22/24 11:11 Antibiotics) tightness Family History Mother Hypertension Grandmother Myocardial infarction maternal Grandfather Myocardial infarction maternal Surgical History Hx of brain surgery Hx of left knee surgery Hx of tonsillectomy Hx of esophagogastroduodenoscopy History of History of lumbar spinal fusion Social History household members: family housing: house Smoking Status: Never smoker alcohol intake: current alcohol intake frequency: a few times a month substance use type: does not use Review of Systems (Anesthesia) ROS Narrative System reviewed and no additional complaints, except as documented.
--- NOTE | 2024-12-22 12:30 | EGD_PTH ---
PATIENT: YOBANY ANGELO LOC: EN U#:[id number] AGE/SX: 49/F ROOM: RE12/22/[address]: Dr. Eros Eason DO : 1975 BED: DIS: 12/22/2024 SPEC #: [id number] RECD: 12/23/24 09:04 STATUS: SRAVAN REDanuta #: [id number] TEJ: 12/22/24 12:[address]: Eros Eason DEPT: SURGICAL PATHOLOGY RECD BY: Cedric Hyatt ENTERED: 12/23/24 09:04 SP TYPE: EGD BIOPSY MERCEDES DR: Dr. Denotn Richards MD Tissues: A - Duodenum, NOS Procedures: Surgery Specimen Level IV HEADER OPERATION: EGD with biopsy PRE-OP DIAGNOSIS: Gastric ulcer TISSUE SUBMITTED: A- Duodenal ulcer biopsy MICROSCOPIC DIAGNOSIS A. Duodenum, Ulcer, Biopsy: - Normal villous architecture with Thony gland hyperplasia and gastric mucin cell metaplasia, suggestive of peptic injury. - Negative for increased intraepithelial lymphocytes. MICROSCOPIC DESCRIPTION Slides are reviewed. GROSS DESCRIPTION A. Received in formalin in a container labeled with the patient's name, date of , and duodenal ulcer biopsy are multiple nugent-pink fragments of mucosal tissue measuring 0.7 x 0.7 x 0.2 cm in aggregate. Submitted in toto in A1. [facility] 12-23-2024 CPT:34450
--- NOTE | 2024-12-22 13:16 | PCM.POST.ANE ---
Anesthesia: Postop Eval I Current Vital Signs Temperature: 97.7 F Pulse Rate: 94 Blood Pressure: 94/64 Respiratory Rate: 16 Pulse Ox: 93 Oxygen Delivery Method: Room Air Assessment Airway patent: Yes Spontaneous unlabored respirations: Yes Mental status: Asleep nausea: No Vomiting: No Anesthesia Complication: No Fluid Hydration Crystalloid volume administer (ml): 30 Total IV fluid infused: 30 Progress Note Anesthesia document: Postop Eval 1 completed: Yes
--- NOTE | 2024-12-22 13:24 | OP.EGD_ITS ---
Patient Name: Melida Brooks Procedure Date: 12/22/2024 12:55 PM Date of : 1975 Age: 49 Procedure: Upper GI endoscopy Indications: Iron deficiency anemia, Failure to respond to medical treatment, Follow-up of chronic peptic ulcer with obstruction, Chronic peptic ulcer with obstruction Providers: Eros Eason DO Referring MD: Denton Richards Medicines: Monitored Anesthesia Care Patient Profile: This is a 49 year old female. Refer to note in patient chart for documentation of history and physical. Patient has symptoms of acute epigastric abdominal pain. Her most recent EGD for ulcer treatment was within the past year. Complications: No immediate complications. Procedure: Pre-Anesthesia Assessment: - Prior to the procedure, a History and Physical was performed, and patient medications and allergies were reviewed. The patient is competent. The risks and benefits of the procedure and the sedation options and risks were discussed with the patient. All questions were answered and informed consent was obtained. Patient identification and proposed procedure were verified by the physician in the pre-procedure area. Mental Status Examination: alert and oriented. Airway Examination: normal oropharyngeal airway and neck mobility. Respiratory Examination: clear to auscultation. CV Examination: normal. Prophylactic Antibiotics: The patient does not require prophylactic antibiotics. Prior Anticoagulants: The patient has taken no anticoagulant or antiplatelet agents except for NSAID medication. ASA Grade Assessment: II - A patient with mild systemic disease. After reviewing the risks and benefits, the patient was deemed in satisfactory condition to undergo the procedure. The anesthesia plan was to use monitored anesthesia care (MAC). Immediately prior to administration of medications, the patient was re-assessed for adequacy to receive sedatives. The heart rate, respiratory rate, oxygen saturations, blood pressure, adequacy of pulmonary ventilation, and response to care were monitored throughout the procedure. The physical status of the patient was re-assessed after the procedure. After obtaining informed consent, the endoscope was passed under direct vision. Throughout the procedure, the patient's blood pressure, pulse, and oxygen saturations were monitored continuously. The gastroscope was introduced through the mouth, and advanced to the second part of duodenum. The upper GI endoscopy was accomplished without difficulty. The patient tolerated the procedure well. Scope In: 1:05:03 PM Scope Out: 1:09:39 PM Total Procedure Duration Time 0 hours 4 minutes 36 seconds Findings: The examined esophagus was normal. No gross lesions were noted in the entire examined stomach. One non-bleeding cratered duodenal ulcer with no stigmata of bleeding was found in the duodenal bulb. The lesion was 15 mm in largest dimension. Biopsies were taken with a cold forceps for histology. Verification of patient identification for the specimen was done. Estimated blood loss was minimal. Impression: - Normal esophagus. - No gross lesions in the entire stomach. - Non-bleeding duodenal ulcer with no stigmata of bleeding. Biopsied. Recommendation: - Discharge patient to home. - Resume previous diet. - Continue present medications. - Await pathology results. Procedure Code(s): --- Professional --- 93180, Esophagogastroduodenoscopy, flexible, transoral; with biopsy, single or multiple CPT copyright 2021 [employer]. All rights reserved. The codes documented in this report are preliminary and upon foaming machine operator review may be revised to meet current compliance requirements. Eros Eason DO 12/22/2024 1:23:38 PM This report has been signed electronically. Number of Addenda: 0 Note Initiated On: 12/22/2024 12:55 PM
--- NOTE | 2024-12-22 13:24 | OP.CCLET_ITS ---
12/22/2024 Denton Richards Re : Upper GI endoscopy procedure for Melida Brooks Dear Susie This procedure was performed on Sunday, December 22, 2024. My impressions and recommendations are as follows: Impressions : - Normal esophagus. - No gross lesions in the entire stomach. - Non-bleeding duodenal ulcer with no stigmata of bleeding. Biopsied. Recommendations : - Discharge patient to home. - Resume previous diet. - Continue present medications. - Await pathology results. My findings are described in the full procedure note, which is enclosed. If I can be of further assistance, please feel free to contact me at . Sincerely, Eros Eason, 12/22/2024 1:23:38 PM This report has been signed electronically.
--- NOTE | 2024-12-22 13:56 | PCM.POSTANE2 ---
Anesthesia Postop Eval I Sum Postop Eval Completion status Anesthesia document: Postop Eval 1 completed: Yes Anesthesia Postop Eval I Summary Anesthesia Postop Eval I Summary: Anesthesia Postop Eval I: Assessment Summary Airway patent Yes 12/22/24 13:16 [email or web address] Spontaneous unlabored Yes 12/22/24 13:16 [email or web address] respirations Mental status Asleep 12/22/24 13:16 [email or web address] nausea No 12/22/24 13:16 [email or web address] Vomiting No 12/22/24 13:16 [email or web address] Anesthesia Postop Eval I: Fluid Summary Crystalloid volume administer 30 12/22/24 13:16 [email or web address] (ml) Colloids volume administered ( ml) Blood Product volume administered (ml) Total IV fluid infused 30 12/22/24 13:16 [email or web address] Anesthesia Postop Eval I: Summary Notes Anesthesia Complication No 12/22/24 13:16 [email or web address] Anesthesia Complication Comment: Post-operative progress note Anesthesia: Postop Eval II Evaluation Mental status: Awake Pain Level: 0 nausea: No Vomiting: No
== END 2024-12-22 14:12 | disposition home or self-care (01) ==
LOC: EN 11:07 → AC 11:07
PROVIDERS: PCP Family Medicine; Referring Provider Family Medicine; Visit Provider Internal Medicine Gastroenterology
PROC: 0DJ08ZZ Inspection of Upper Intestinal Tract, Via Natural or Artificial Opening Endoscopic (ICD-10-PCS; CPT 43235; principal; 2024-12-22 12:25)
DX: K26.9 Duodenal ulcer, unspecified as acute or chronic, without hemorrhage or perforation (principal); K21.9 Gastro-esophageal reflux disease without esophagitis; D50.9 Iron deficiency anemia, unspecified; I10 Essential (primary) hypertension; Z86.14 Personal history of Methicillin resistant Staphylococcus aureus infection; Z98.1 Arthrodesis status
CPT/HCPCS: 43239; 88305; A4216; J2405

== ENCOUNTER 2025-07-20 09:56 | Day surgery (SDC) | payer BC, SELFPAY ==
--- NOTE | 2025-07-18 15:00 | PAT.ANE_ITS ---
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 When Was Last Pacemaker Check QUESTION #4 FULL TEXT: You/Your Family Experience fever (hyperthermia) with Anesthesia Last Oral Intake Last Oral intake: Last Oral Intake NPO since Meds taken in AM with sips of water? Meds patient instructed to take am of surgery PONV PONV - immigration inspector: PONV - immigration inspector Female Yes 07/18/25 14:54 HX of Motion Sickness No 07/18/25 14:54 HX of N/V After Surgery No 07/18/25 14:54 Non-Smoker Yes 07/18/25 14:54 Duration of Surgery greater No 07/18/25 14:54 than 60 minutes Number of Risk Factors 2 07/18/25 14:54 PONV Score Moderate Risk 07/18/25 14:54 Height & Weight Height & Weight: Anesthesia: Height & Weight Height 5 ft 3 in 12/22/24 11:13 Respiratory Assessment Respiratory Assessment - immigration inspector: Respiratory Tract Infection Hx - immigration inspector Hx Respiratory Tract Infection No 07/18/25 14:54 STOP Sleep Apnea STOP Sleep Apnea - immigration inspector: STOP Sleep Apnea - immigration inspector Hx Hypertension Yes: CONTROLLED WITH MED 07/18/25 14:54 Hx Sleep Apnea No 07/18/25 14:54 CPAP BIPAP Do you snore loudly (louder No 07/18/25 14:54 than talking or can be heard Do you often feel tired/ No 07/18/25 14:54 fatigued/ sleepy during daytime? Has anyone observed you stop No 07/18/25 14:54 breathing during sleep? STOP Results Negative 07/18/25 14:54 QUESTION #5 FULL TEXT : Do you snore loudly (louder than talking or can be heard through closed doors)? 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 Specify any problems Hx of Preganancy in last 3 No 07/18/25 14:54 Months Nurse Filling Out Transfusion VCHRISTIN 07/18/25 14:54 & Questions: Date: 07/18/25 07/18/25 14:54 Time: 14:55 07/18/25 14:54 Patient unable to answer at this time (ie. confused, unrespo /Reproduction History /Reproductive History - immigration inspector: /Reproductive Hx- immigration inspector Hx Now No 07/18/25 14:54 Gestational Age (in weeks): EDC: Hx Hx Para Hx Section SAB No 07/18/25 14:54 [facility] Medical History Post-menopausal Wears glasses Alcohol use Anemia Injury of back Back pain History of GI bleed History of ulceration Cardiology follow-up encounter History of echocardiogram History of stress test Obesity (BMI 30-39.9) Idiopathic intracranial hypertension Migraines Syncope (2006) Seborrheic keratoses History of MRSA infection Asthma GERD (gastroesophageal reflux disease) Essential (primary) hypertension Home Medications Medication Instructions Recorded Last Taken Type albuterol sulfate 90 mcg/actuation 2 inh inhalation Q6 H PRN Wheezing 11/01/20 Unknown History aerosol inhaler amlodipine 5 mg tablet 5 mg PO QHS 11/17/23 4 History lisinopril 40 mg tablet 40 mg PO QHS 11/17/23 History metoprolol succinate 50 mg 50 mg PO QHS 09/06/2412/22 History tablet,extended release 24 hr (Toprol XL) rosuvastatin 10 mg tablet 10 mg PO QHS 09/06/24 Unknow n History pantoprazole 40 mg tablet,delayed 40 mg PO BID #60 tab s 06/30/25 Unknown Rx release (Protonix) sucralfate 1 gram tablet (Carafate) 1 g PO TID #168 ta bs 06/30/25 Unknown Rx topiramate 25 mg tablet (Topamax) 50 mg PO QHS 5 Unknown History Allergy/AdvReac Type Severity Reaction Status Date / Time apple Allergy Swelling Verified 07/18/25 14:48 shellfish derived AdvReac Swelling Verified 07/18/25 14:48 Sulfa (Sulfonamide AdvReac Chest Verified 07/18/25 14:48 Antibiotics) tightness Family History Mother Hypertension Grandmother Myocardial infarction maternal Grandfather Myocardial infarction maternal Surgical History (Updated 07/18/25 @ 14:54 by Muna Kingston) Hx of brain surgery Hx of left knee surgery Hx of tonsillectomy Hx of esophagogastroduodenoscopy History of History of lumbar spinal fusion Social History household members: family housing: house Smoking Status: Never smoker alcohol intake: current alcohol intake frequency: a few times a month substance use type: does not use Audit: Pertinent Findings Pertinent Findings EKG Perinent findings: March 07, 2024. Normal sinus rhythm. Inferior infarct, age undetermined. Stress test pertinent findings: November 23, 2020. Resting EF is 55%. Peak ejection fraction is 65% with stress. No evidence of ischemia at a high workload. Echo (EF%) pertinent findings: 06/25/2021. EF of 60%. PASP is 26 mmHg. No aortic stenosis noted. Consult pertinent findings: November 01, 2020. Dr. Ordaz. 1. [id number]. High beta-justice dose may be contributing to fatigue. Reduce beta-justice to 50 mg a day. Continue amlodipine and lisinopril. Check chemistry profile. 2. Chest pain-appears to be somewhat atypical. Will like to obtain a stress echo to evaluate. (See above) Recommendation Anesthesia Recommendation Anesthesia recommendation: OPTIMIZED for anesthesia
[2025-07-20] VITALS (7 sets, daily range): BP systolic 80–103; BP diastolic 58–70; PULSE 51–72; RESP 12–18; TEMP 36.2–36.5; O2SAT 93–99; BMI 29.2
--- NOTE | 2025-07-20 10:09 | PRE.ANES_ITS ---
ASA Classification* ASA Classification ASA Classification: 2 Assessment & Plan Anesthesia* Anesthesia Assessment Anesthesia Assessment: Discussed sedation and/or anesthesia options, risks, benefits, and alternatives with patient/parents/legal guardian/POA. Questions invited. The patient/parents/legal guardian/POA seems to understand and agrees to proceed with anesthesia plan. Reviewed the physical assessment, medical history, allergy history and patient home medications list prior to surgery/procedure/anesthetic and documented any changes. Performed airway and anesthesia risk assessments. Anesthesia Type Anesthesia Type: MAC Anesthesia Focused Assessment* Airway Assessment Mouth opens: >3 cm Mallampati Score: II Labs Anesthesia Preop lab: CBC WBC, (4.4-11.0) 9.0 K/mm3 03/07/24, 19:07 RBC, (4.2-5.4) 4.44 M/mm3 03/07/24, 19:07 Hgb, (12.0-15.0) 12.9 g/dL 03/07/24, 19:07 Hct, (37-47) 39.0 % 03/07/24, 19:07 Plt Count, (150-450) 236 K/mm3 03/07/24, 19:07 CHEMISTRY Potassium, (3.5-5.1) 3.5 mmol/L 03/07/24, 19:07 Sodium, (136-145) 141 mmol/L 03/07/24, 19:07 Magnesium, (1.6-2.6) 2.1 mg/dL 07/06/23, 03:42 Phosphorus, (2.5-4.9) 3.0 mg/dL 07/06/23, 03:42 BUN, (7-18) 23 mg/dL H 03/07/24, 19:07 Creatinine, (0.55-1.02) 0.82 mg/dL 03/07/24, 19:07 Glucose, (74-106) 132 mg/dL H 03/07/24, 19:07 TSH, (0.358-3.74) 1.95 uIU/mL 11/01/20, 16:14 COAG PT, (11.7-14.9) 14.4 SECONDS 07/05/23, 03:40 Pre-Assessment Diagnosis/Proposed Procedure Planned Operative Procedure(s): EGD Anesthesia History 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 When Was Last Pacemaker Check QUESTION #4 FULL TEXT: You/Your Family Experience fever (hyperthermia) with Anesthesia Last Oral Intake Last Oral intake: Last Oral Intake NPO since Meds taken in AM with sips of water? Meds patient instructed to take am of surgery PONV PONV - motor vehicle inspector: PONV - motor vehicle inspector Female Yes 07/18/25 14:54 HX of Motion Sickness No 07/18/25 14:54 HX of N/V After Surgery No 07/18/25 14:54 Non-Smoker Yes 07/18/25 14:54 Duration of Surgery greater No 07/18/25 14:54 than 60 minutes Number of Risk Factors 2 07/18/25 14:54 PONV Score Moderate Risk 07/18/25 14:54 Height & Weight Height & Weight: Anesthesia: Height & Weight Height 5 ft 3 in 12/22/24 11:13 Respiratory Assessment Respiratory Assessment - motor vehicle inspector: Respiratory Tract Infection Hx - motor vehicle inspector Hx Respiratory Tract Infection No 07/18/25 14:54 STOP Sleep Apnea STOP Sleep Apnea - motor vehicle inspector: STOP Sleep Apnea - motor vehicle inspector Hx Hypertension Yes: CONTROLLED WITH MED 07/18/25 14:54 Hx Sleep Apnea No 07/18/25 14:54 CPAP BIPAP Do you snore loudly (louder No 07/18/25 14:54 than talking or can be heard Do you often feel tired/ No 07/18/25 14:54 fatigued/ sleepy during daytime? Has anyone observed you stop No 07/18/25 14:54 breathing during sleep? STOP Results Negative 07/18/25 14:54 QUESTION #5 FULL TEXT : Do you snore loudly (louder than talking or can be heard through closed doors)? 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 Specify any problems Hx of Preganancy in last 3 No 07/18/25 14:54 Months Nurse Filling Out Transfusion VCHRISTIN 07/18/25 14:54 & Questions: Date: 07/18/25 07/18/25 14:54 Time: 14:55 07/18/25 14:54 Patient unable to answer at this time (ie. confused, unrespo /Reproduction History /Reproductive History - motor vehicle inspector: /Reproductive Hx- motor vehicle inspector Hx Now No 07/18/25 14:54 Gestational Age (in weeks): EDC: Hx Hx Para Hx Section SAB No 07/18/25 14:54 Active Medications Active Medications: Current Medications Generic Name Dose Route Start Last Admin Trade Name Freq PRN Reason Stop Dose Admin Lactated Ringer's 1,000 mls @ 15 mls/hr 07/20/25 10:15 IV .Q48H TERESITA PFSH Medical History Post-menopausal Wears glasses Alcohol use Anemia Injury of back Back pain History of GI bleed History of ulceration Cardiology follow-up encounter History of echocardiogram History of stress test Obesity (BMI 30-39.9) Idiopathic intracranial hypertension Migraines Syncope (2006) Seborrheic keratoses History of MRSA infection Asthma GERD (gastroesophageal reflux disease) Essential (primary) hypertension Home Medications Medication Instructions Recorded Last Taken Type albuterol sulfate 90 mcg/actuation 2 inh inhalation Q6 H PRN Wheezing 11/01/20 Unknown History aerosol inhaler amlodipine 5 mg tablet 5 mg PO QHS 11/17/23 4 History lisinopril 40 mg tablet 40 mg PO QHS 11/17/23 History metoprolol succinate 50 mg 50 mg PO QHS 09/06/2412/22 History tablet,extended release 24 hr (Toprol XL) rosuvastatin 10 mg tablet 10 mg PO QHS 09/06/24 Unknow n History pantoprazole 40 mg tablet,delayed 40 mg PO BID #60 tab s 06/30/25 Unknown Rx release (Protonix) sucralfate 1 gram tablet (Carafate) 1 g PO TID #168 ta bs 06/30/25 Unknown Rx topiramate 25 mg tablet (Topamax) 50 mg PO QHS 5 Unknown History Allergy/AdvReac Type Severity Reaction Status Date / Time apple Allergy Swelling Verified 07/18/25 14:48 shellfish derived AdvReac Swelling Verified 07/18/25 14:48 Sulfa (Sulfonamide AdvReac Chest Verified 07/18/25 14:48 Antibiotics) tightness Family History Mother Hypertension Grandmother Myocardial infarction maternal Grandfather Myocardial infarction maternal Surgical History Hx of brain surgery Hx of left knee surgery Hx of tonsillectomy Hx of esophagogastroduodenoscopy History of History of lumbar spinal fusion Social History household members: family housing: house Smoking Status: Never smoker alcohol intake: current alcohol intake frequency: a few times a month substance use type: does not use Review of Systems (Anesthesia) ROS Narrative System reviewed and no additional complaints, except as documented.
[2025-07-20] MEDS: Lactated Ringers 1,000 ML 15 ML IV (10:26)
--- NOTE | 2025-07-20 10:59 | PCM.HP.STD ---
HPI - General General Date of Admission: 07/20/25 Date of Service: 07/20/25 Chief Complaint: Gastric ulcer HPI Narrative YOBANY ANGELO, is a 49 F who presents for surveillance of gastric ulcer due to worsening abdominal pain. She underwent an upper and lower endoscopy approximately 4 months ago and was discovered to have a large gastric ulcer that was positive for intestinal metaplasia. She comes in today for surveillance of her gastric ulcer. [facility] Medical History Post-menopausal Wears glasses Alcohol use Anemia Injury of back Back pain History of GI bleed History of ulceration Cardiology follow-up encounter History of echocardiogram History of stress test Obesity (BMI 30-39.9) Idiopathic intracranial hypertension Migraines Syncope (2006) Seborrheic keratoses History of MRSA infection Asthma GERD (gastroesophageal reflux disease) Essential (primary) hypertension Home Medications Medication Instructions Recorded Last Taken Type albuterol sulfate 90 mcg/actuation 2 inh inhalation Q6H PRN Wheezing 11/01/20 Unknown History aerosol inhaler amlodipine 5 mg tablet 5 mg PO QHS 11/17/23 07/19/25 History lisinopril 40 mg tablet 40 mg PO QHS 11/17/23 07/19/25 History metoprolol succinate 50 mg 50 mg PO QHS 09/06/24 07/19/25 History tablet,extended release 24 hr (Toprol XL) rosuvastatin 10 mg tablet 10 mg PO QHS 09/06/24 Unknown History pantoprazole 40 mg tablet,delayed 40 mg PO BID #60 tabs 06/30/25 Unknown Rx release (Protonix) sucralfate 1 gram tablet (Carafate) 1 g PO TID #168 tabs 06/30/25 Unknown Rx topiramate 25 mg tablet (Topamax) 50 mg PO QHS 07/18/25 Unknown History Allergy/AdvReac Type Severity Reaction Status Date / Time apple Allergy Swelling Verified 07/20/25 10:12 shellfish derived AdvReac Swelling Verified 07/20/25 10:12 Sulfa (Sulfonamide AdvReac Chest Verified 07/20/25 10:12 Antibiotics) tightness Family History Mother Hypertension Grandmother Myocardial infarction maternal Grandfather Myocardial infarction maternal Surgical History Hx of brain surgery Hx of left knee surgery Hx of tonsillectomy Hx of esophagogastroduodenoscopy History of History of lumbar spinal fusion Social History household members: family housing: house Smoking Status: Never smoker alcohol intake: current alcohol intake frequency: a few times a month substance use type: does not use ROS Constitutional Constitutional: Denies fatigue, fever(s), poor appetite, weight gain or weight loss Gastrointestinal Gastrointestinal: Denies belching, bloating, change in bowel habits, change in stool character, chewing difficulty, coffee ground emesis, constipation, cramping, diarrhea, dyspepsia, dysphagia, early satiety, excessive flatus, fecal incontinence, heartburn, hematemesis, hematochezia, hemorrhoids, loose stools, melena, nausea, odynophagia, rectal bleeding, tenesmus, vomiting or weight changes Vital Signs Vital Signs Vital Signs: 07/20/25 10:13 07/20/25 10:13 Temperature 97.7 F L Temperature Source Temporal Pulse Rate 51 L Respiratory Rate 16 Respiratory Pattern Normal Blood Pressure 103/70 Blood Pressure Mean 81 Blood Pressure Source Monitor Blood Pressure Position Semi-Fowlers Blood Pressure Location Left Arm Pulse Ox 99 Oxygen Delivery Method Room Air Weight Weight: 165 lb 5.547 oz Body Mass Index (BMI) 29.2 Physical Exam Const alert, oriented x3, no apparent distress and healthy appearing General Appearance: cooperative GI normal to inspection, nondistended, normoactive bowel sounds, soft to palpation, non-tender and non-distended Percussion: normal to percussion Rectal Exam: deferred Assessment & Plan Assessment/Plan (1) Gastric ulcer: PLAN: Assessment & Plan Assessment/Plan (1) Gastric ulcer: PLAN: Patient will undergo an upper endoscopy to evaluate the healing of her gastric ulcer that contained intestinal metaplasia. She was explained alternatives, risk and benefits include not withstanding bleeding, infection, subsequent perforation, need for more surgery . She have an ASA of 3. ]
--- NOTE | 2025-07-20 11:00 | EGD_PTH ---
PATIENT: YOBANY ANGELO LOC: EN U#:[id number] AGE/SX: 50/F ROOM: RE07/20/[address]: Dr. Eros Eason DO : 1975 BED: DIS: 07/20/2025 SPEC #: [id number] RECD: 07/20/25 11:43 STATUS: SRAVAN REQ #: [id number] TEJ: 07/20/25 11:[address]: Eros Eason DEPT: SURGICAL PATHOLOGY RECD BY: Cedric Hyatt ENTERED: 07/20/25 15:54 SP TYPE: EGD BIOPSY OT DR: Dr. Denton Richards MD Tissues: A - Duodenum, NOS Procedures: Immunohistochemical Stains Surgery Specimen Level IV IHC Stain ADDITIONAL Comments: Called office on 08/03 and spoke to Anahy about positive stain reported as addendum. HEADER OPERATION: EGD with biopsy PRE-OP DIAGNOSIS: Gastric ulcer TISSUE SUBMITTED: A- Duodenal ulcer biopsy MICROSCOPIC DIAGNOSIS A. Duodenum, "ulcer", biopsy: - Ulcerated duodenal mucosa with Thony gland hyperplasia, acute inflammation, and focal gastric mucin cell metaplasia. - IHC negative for H. pylori organisms. - IHC for pankeratin is negative for architectural evidence of malignancy. - IHC for CMV is pending and will be reported in an addendum. MICROSCOPIC DESCRIPTION Slides are reviewed. All matched controls reacted appropriately. These tests were developed and their performance characteristics determined by [facility]. They may not have been cleared or approved by the U.[place]. Food and Drug Administration. The FDA has determined that such clearance or approval is not necessary. The above immunohistochemical markers and/or special stains have been reviewed by the Pathologist. GROSS DESCRIPTION A. Received in fixative is one container labeled with the patient's name and designated "Duodenal ulcer biopsy." The specimen consists of multiple irregular fragments of nugent tissue that in aggregate measure 1 x 0.5 x 0.2 cm. The specimen is totally submitted in one cassette. [place] 07/20/2025 CPT:[id number] ADDENDUM ADDENDUM ADDENDUM ADDENDUM ADDENDUM ADDENDUM 08/03/2025 08:16 ADDENDUM 08/03/2025 08:16 ADDENDUM 08/03/2025 08:16 ADDENDUM 08/03/2025 08:16 ADDENDUM 08/03/2025 08:16 This addendum is to report the IHC stain for CMV: A) IHC for CMV (cytomegalovirus) is POSITIVE. Dr Eason's office was notified of this result 08/03/25 (by Fred Hyatt).
--- NOTE | 2025-07-20 11:31 | OP.PROVAT_ITS ---
07/20/2025 Denton Richards Re : Upper GI endoscopy procedure for Melida Brooks Dear Susie This procedure was performed on Sunday, July 20, 2025. My impressions and recommendations are as follows: Impressions : - Normal esophagus. - Erosive gastropathy with no bleeding and no stigmata of recent bleeding. - Non-bleeding duodenal ulcer with no stigmata of bleeding. Biopsied. Recommendations : - Discharge patient to home. - Resume previous diet. - Continue present medications. - Await pathology results. My findings are described in the full procedure note, which is enclosed. If I can be of further assistance, please feel free to contact me at . Sincerely, Eros Eason, 07/20/2025 11:31:10 AM This report has been signed electronically.
--- NOTE | 2025-07-20 11:31 | OP.EGD_ITS ---
Patient Name: Melida Brooks Procedure Date: 07/20/2025 11:06 AM Date of : 1975 Age: 50 Procedure: Upper GI endoscopy Indications: Iron deficiency anemia, Follow-up of chronic duodenal ulcer Providers: Eros Eason DO Referring MD: Denton Richards Medicines: Monitored Anesthesia Care Patient Profile: This is a 50 year old female. Refer to note in patient chart for documentation of history and physical. Patient has symptoms of chronic epigastric abdominal pain. Her most recent EGD for treatment of bleeding and EGD for ulcer treatment was within the past six months. Complications: No immediate complications. Procedure: Pre-Anesthesia Assessment: - Prior to the procedure, a History and Physical was performed, and patient medications and allergies were reviewed. The patient is competent. The risks and benefits of the procedure and the sedation options and risks were discussed with the patient. All questions were answered and informed consent was obtained. Patient identification and proposed procedure were verified by the physician in the pre-procedure area. Mental Status Examination: alert and oriented. Airway Examination: normal oropharyngeal airway and neck mobility. Respiratory Examination: clear to auscultation. CV Examination: normal. Prophylactic Antibiotics: The patient does not require prophylactic antibiotics. Prior Anticoagulants: The patient has taken no anticoagulant or antiplatelet agents except for NSAID medication. ASA Grade Assessment: II - A patient with mild systemic disease. After reviewing the risks and benefits, the patient was deemed in satisfactory condition to undergo the procedure. The anesthesia plan was to use monitored anesthesia care (MAC). Immediately prior to administration of medications, the patient was re-assessed for adequacy to receive sedatives. The heart rate, respiratory rate, oxygen saturations, blood pressure, adequacy of pulmonary ventilation, and response to care were monitored throughout the procedure. The physical status of the patient was re-assessed after the procedure. After obtaining informed consent, the endoscope was passed under direct vision. Throughout the procedure, the patient's blood pressure, pulse, and oxygen saturations were monitored continuously. The Endoscope was introduced through the mouth, and advanced to the second part of duodenum. The upper GI endoscopy was accomplished without difficulty. The patient tolerated the procedure well. Scope In: 11:19:29 AM Scope Out: 11:25:44 AM Total Procedure Duration Time 0 hours 6 minutes 15 seconds Findings: The examined esophagus was normal. A few localized 5 mm erosions with no bleeding and no stigmata of recent bleeding were found in the gastric body. One non-bleeding cratered duodenal ulcer with no stigmata of bleeding was found in the duodenal bulb. The lesion was 20 mm in largest dimension. Biopsies were taken with a cold forceps for histology. Verification of patient identification for the specimen was done. Estimated blood loss was minimal. Impression: - Normal esophagus. - Erosive gastropathy with no bleeding and no stigmata of recent bleeding. - Non-bleeding duodenal ulcer with no stigmata of bleeding. Biopsied. Recommendation: - Discharge patient to home. - Resume previous diet. - Continue present medications. - Await pathology results. Procedure Code(s): --- Professional --- 73651, Esophagogastroduodenoscopy, flexible, transoral; with biopsy, single or multiple CPT copyright 2021 [employer]. All rights reserved. The codes documented in this report are preliminary and upon supervisory cbp officer review may be revised to meet current compliance requirements. Eros Eason DO 07/20/2025 11:31:10 AM This report has been signed electronically. Number of Addenda: 0 Note Initiated On: 07/20/2025 11:06 AM
--- NOTE | 2025-07-20 11:35 | PCM.POST.ANE ---
Anesthesia: Postop Eval I Current Vital Signs Temperature: 97.5 F Pulse Rate: 68 Blood Pressure: 80/61 Respiratory Rate: 16 Pulse Ox: 93 Oxygen Delivery Method: Room Air Assessment Airway patent: Yes Spontaneous unlabored respirations: Yes Mental status: Asleep nausea: No Vomiting: No Anesthesia Complication: No Fluid Hydration Crystalloid volume administer (ml): 400 Total IV fluid infused: 400 Progress Note Anesthesia document: Postop Eval 1 completed: Yes
--- NOTE | 2025-07-20 11:47 | PCM.POSTANE2 ---
Anesthesia Postop Eval I Sum Postop Eval Completion status Anesthesia document: Postop Eval 1 completed: Yes Anesthesia Postop Eval I Summary Anesthesia Postop Eval I Summary: Anesthesia Postop Eval I: Assessment Summary Airway patent Yes 07/20/25 11:35 [email or web address] Spontaneous unlabored Yes 07/20/25 11:35 [email or web address] respirations Mental status Asleep 07/20/25 11:35 [email or web address] nausea No 07/20/25 11:35 [email or web address] Vomiting No 07/20/25 11:35 [email or web address] Anesthesia Postop Eval I: Fluid Summary Crystalloid volume administer 400 07/20/25 11:35 [email or web address] (ml) Colloids volume administered ( ml) Blood Product volume administered (ml) Total IV fluid infused 400 07/20/25 11:35 [email or web address] Anesthesia Postop Eval I: Summary Notes Anesthesia Complication No 07/20/25 11:35 [email or web address] Anesthesia Complication Comment: Post-operative progress note Anesthesia: Postop Eval II Evaluation Mental status: Awake Pain Level: 0 nausea: No Vomiting: No
== END 2025-07-20 12:54 | disposition home or self-care (01) ==
LOC: EN 09:57 → AC 09:58
PROVIDERS: PCP Family Medicine; Referring Provider Family Medicine; Visit Provider Internal Medicine Gastroenterology
PROC: 0DJ08ZZ Inspection of Upper Intestinal Tract, Via Natural or Artificial Opening Endoscopic (ICD-10-PCS; CPT 43235; principal; 2025-07-20 10:55)
DX: K25.9 Gastric ulcer, unspecified as acute or chronic, without hemorrhage or perforation (principal); I10 Essential (primary) hypertension; D50.9 Iron deficiency anemia, unspecified; K21.9 Gastro-esophageal reflux disease without esophagitis; K31.89 Other diseases of stomach and duodenum; Z79.899 Other long term (current) drug therapy; K31.A19 Gastric intestinal metaplasia without dysplasia, unspecified site; K29.80 Duodenitis without bleeding
CPT/HCPCS: 43239; 88305; 88341; 88342; J2405